=== PATIENT | female | born 1975 | race Caucasian/White ===

== ENCOUNTER → 2020-03-20 20:00 | Outpatient (CLI) | payer MEDICAID, SELFPAY | PROVIDERS: PCP Family Medicine; Visit Provider Nurse Practitioner Family | DX: G47.33 Obstructive sleep apnea (adult) (pediatric) (principal); R06.83 Snoring; I10 Essential (primary) hypertension; E66.01 Morbid (severe) obesity due to excess calories; Z68.41 Body mass index [BMI] 40.0-44.9, adult | CPT/HCPCS: 95810 ==

== ENCOUNTER → 2020-04-17 09:00 | Outpatient (CLI) | payer MEDICAID, SELFPAY | PROVIDERS: PCP Family Medicine; Visit Provider Nurse Practitioner Family | DX: R69 Illness, unspecified (principal) ==

== ENCOUNTER → 2020-08-25 09:03 | Outpatient (CLI) | payer MEDICAID, SELFPAY ==
--- NOTE | 2020-08-25 09:15 | RAD_ITS ---
PROCEDURE: Fluoroscopic guided Hip Injection DATE: 08/25/2020 INDICATION: Female, 44 years old. Chronic hip pain. PHYSICIAN: Tyrone Camacho M.D. MEDICATIONS: 40 mg of KENALOG and 4 cc of 1% LIDOCAINE. 2% lidocaine administered subcutaneously for local anesthesia. ACCESS SITE: Right hip. NEEDLE: 22-gauge spinal needle. FLUOROSCOPY TIME (if supplied): (1:58) minutes/seconds FINDINGS: The risks, benefits, and alternatives to the procedure were explained to the patient. The specific risks of bleeding, infection, and neurovascular injury were detailed and accepted. Witnessed informed consent was obtained. A 22-gauge spinal needle was positioned under radiograph fluoroscopic localization. Approximately 2 cc of [id number] instilled for localization purposes. Medication was then injected. The patient tolerated the procedure well without any immediate complications. RAD/Inj/Asp Jamie Jt Should/Hip/Knee IMPRESSION: 1. Successful fluoroscopic guided hip injection. Electronically Signed: Tyrone Camacho MD at 10:20 EST , Service support ,
== END ==
PROVIDERS: PCP Nurse Practitioner Family; Referring Provider Family Medicine; Visit Provider Family Medicine
DX: M70.61 Trochanteric bursitis, right hip (principal)
CPT/HCPCS: 20610; 77002

== ENCOUNTER → 2020-09-30 13:52 | Outpatient (CLI) | payer MEDICAID, SELFPAY ==
[2020-09-17 09:43] VITALS: BMI 75.5
--- NOTE | 2020-09-30 13:54 | STEWCON_ITS ---
Reason For Study: PRE-OP Stress Results Protocol: Dobutatmine Stress Echo Maximum Predicted HR: 177 bpm Target HR: 150 bpm % Maximum Predicted HR: 90 % DurationHeart Rate Stage (mm:ss) (bpm) BP Dose Comment BASELINE 94 156/89 DILUTED DEFINITY 6 ML USED DURING STRESS DSE- 10 MCG 3:15 129 154/8510.00NO SX DSE- 20 MCG 3:00 142 127/7220.00NO SX DSE- 30 MCG 4:28 160 102/5930.00ATROPINE 0.25 MG IVP GIVEN @ 1426, C/O SL DYSPNEA, KEITA RECOVERY 101 133/80 DENIES COMPLAINT Stress Duration: 10:43 mm:ss Maximum Stress HR: 160 bpm Baseline Echocardiogram Findings Stress Echo Wall motion Data Resting WM Intermediate WM Stress WM Interpretation Summary Dobutamine stress echocardiogram. Preoperative evaluation. Stress protocol: Resting EKG demonstrates sinus rhythm with a rate of 90 bpm normal intervals are noted resting blood pressure is 1 and 56/80 9 mmHg. Dobutamine was infused starting at 10 mcg/kg/min increasing in 3- minute periods to a peak of 30 mcg/kg/min. The patient required 25 mg of atropine to attain the maximum heart rate of 160 bpm which was 90% of max impacted heart rate. The maximum workload was 1 metabolic equivalent. Patient maintained sinus rhythm throughout the recording. At rest there were no ST or T wave changes noted to suggest ischemia and at peak exercise no ST or T wave changes were noted to suggest ischemia. No arrhythmias were noted the test was terminated due to the target heart rate being achieved. The resting blood pressure is 156/89 with a final blood pressure 133/80 mmHg. Resting echocardiogram was performed with Definity enhancement. The estimated ejection fraction was 55%. At low dose there was improvement in left ventricular systolic function and at peak there was near complete contractility with obliteration of the chamber with ejection fraction of 75%. No wall motion abnormalities were noted to suggest ischemia. During recovery normal wall motion was noted. Conclusion: Dobutamine stress echocardiogram with no evidence of ischemia. No arrhythmias noted. Normal resting echocardiogram. Ordering Physician: Gómez Watters Referring Physician: Gómez Watters MD Performed By: Tete Robert, ALIA, RVT
== END ==
PROVIDERS: PCP Nurse Practitioner Family; Visit Provider Internal Medicine Cardiovascular Disease
DX: Z01.818 Encounter for other preprocedural examination (principal)
CPT/HCPCS: 93017; 93350; J7040; Q9957; A4216; C8928

== ENCOUNTER 2021-07-23 10:57 | Outpatient (RCR) | payer MEDICAID, SELFPAY ==
--- NOTE | 2021-07-23 15:01 | HP.PTEVAL ---
Patient's Visit Information CARLEEN SETH is a 45 year old F referred to Physical Therapy by MIRIAN Spangler with a diagnosis of . Date of Evaluation: 07/23/21 Physical Therapist: Nina Moran DPT - Visit Plan Frequency: 1x/Week Duration: 1 Week Plan: Mobility Scooter Evaluation. Educated on importance of movement at home and getting her mobility back - Subjective Patient reports that she had a mobility when she lived in [place] and has moved back to [place]- she has had it for about 7 years and it needs replaced. She still has it but it does not work. It has been a couple of years since she has been ambulatory. She can walk from about 5 feet before she has to stop and sit down. She reports that her lips turn blue and she can't breathe. She has her own wheelchair and can use her rollerator with a seat on it for mobility. She is not able to maneuver her wheelchair throughout the house. When she has an MD apt she uses a wheelchair. She does not go out other than MD apts. does all of her shopping and anything needed done outside the home. does all the cooking and cleaning at home. Inside her home she uses the wheelchair to go from the family room to her bedroom. Once in her bedroom she can use the walker. Bathroom is upstairs- she only goes up there 1x a week for a shower. Other than that she uses a bedside commode and sponge bathes. Stairs in her home has a handrail on the right side and requires assistance from her . She has RA and psoraitic arthritis and ankylosis spondylosis, right hip pain and both knees. She has pain all the time and she sees MD for pain management. She has boys that are 11 and 8 years old. They also help. Her is not currently working and is there as needed. She sleeps in a regular bed but she has to have help getting in/out from her . She has short little steps with rails on both sides and is able to navigate. She does not have a handicapped accessible car and she has to have help to get in/out of the van from her . The scooter will fit in the van. She feels that it will help her get out of the house more. Patient is 5'1 Weight: 466lbs. Pain: 10/10 in her back, right hip and bilateral LE. Best: 4-5/10 Eases: sitting PMHx/Meds: see scanned in chart. Normal Day: gets up, goes to the bathroom in the bedside commode- walk from bed to wheelchair with rollator- then gets into the wheelchair- is unable to propel herself in the wheelchair- or children push her to the couch- she can transfer with the walker to the couch- helps her get dressed- then she stays on the couch all day- transfers independently to a rollator to a bedside commode throughout the day- transfers back into her wheelchair- someone pushes her back to her bedroom and she goes to bed. She has been in PT before in aquatic therapy but it has been years ago. She does not exercise due to pain. - Objective Posture: FH, RS- can correct but does not maintain. Wheelchair mobility: dependent. Gait: shuffling and step to gait pattern- 5 feet then required to sit down due to shortness of breathe. Transfers: indep with sit to stand with FWW from w/c. Required max A for LE movement for bed transfer and mobility. Standing: stands for 30 sec then requires sitting due to pain and shortness of breathe. ROM: WFL in all planes- obesity plays major role in joint mobility- soft tissue. Strength: Ankle: 4/5, Knee: 4-/5, Hip: 3+/5, Core: poor. Balance: sitting: static and dynamic: fair plus, standing: poor - Balance/Special Test Scores Lower Extremity Functional Score: 0 - Rehabilitation Potential Rehabilitation Potential: Fair - Anticipated Interventions Thank you for the opportunity to evaluate your patient. For Medicare and Medicare HMO plans, please review the plan of care and approve it. It will need to be FAXED BACK to us at [phone] for Medicare purposes. For Medicare only, by signing this I certify the plan of care. Please let me know if there are questions or concerns regarding this plan of care. Physician Signature: Date:
--- NOTE | 2021-08-10 11:37 | HP.PT.NRP ---
CARLEEN SETH was seen in my office for initial evaluation on 07/23/21. The following Plan of Care was established for this patient: Initial Frequency: 1x/Week Initial Duration: 1 Week This patient was last seen in our office . Pertinent comments regarding their Physical therapy will appear below: Wheelchair eval only- d/c At this point I will be discontinuing this patient from physical therapy. I would be happy to see this patient again in the future if found appropriate by the physician. Thank you! Nina Moran DPT Balance/Gait/Functional tests - Balance/Special Test Scores Lower Extremity Functional Score: 0
== END 2021-07-23 19:00 | disposition home or self-care (01) ==
LOC: PT 10:57
PROVIDERS: PCP Nurse Practitioner Family; Referring Provider Nurse Practitioner Family; Visit Provider Nurse Practitioner Family
DX: Z01.89 Encounter for other specified special examinations (principal); E66.01 Morbid (severe) obesity due to excess calories; G89.4 Chronic pain syndrome; R26.2 Difficulty in walking, not elsewhere classified
CPT/HCPCS: 97162

== ENCOUNTER 2021-08-11 20:15 | Outpatient (CLI) | payer MEDICAID, SELFPAY | END 2021-08-11 23:59 | disposition home or self-care (01) | PROVIDERS: PCP Nurse Practitioner Family; Visit Provider Nurse Practitioner Family | DX: G47.33 Obstructive sleep apnea (adult) (pediatric) (principal) | CPT/HCPCS: 95811 ==

== ENCOUNTER 2021-10-20 14:26 | Outpatient (CLI) | payer MEDICAID, SELFPAY | END 2021-10-20 23:59 | disposition home or self-care (01) | LOC: SL 14:26 | PROVIDERS: PCP Nurse Practitioner Family; Visit Provider Nurse Practitioner Family | DX: Z46.89 Encounter for fitting and adjustment of other specified devices (principal) ==

== ENCOUNTER 2023-02-05 19:36 | Emergency (ER) | payer MEDICAID, SELFPAY ==
[2023-02-05 19:37] VITALS: BP 158/81; PULSE 124; RESP 16; TEMP 36.7; O2SAT 97
--- NOTE | 2023-02-05 19:54 | ED.VIS.DENTA ---
HPI History of Present Illness Chief Complaint: Dental Informant: patient Onset/Context/Timing Onset: Yesterday Context: Gradual Onset Timing: Continuous Quality: Sharp Location: Left lower molar Worsened by: Nothing Relieved by: - (Nothing) Associated Symptoms Assocated Symptom - Dental: jaw swelling, face swelling, cold sensitivity and hot sensitivity; Negative for fever Narrative Narrative: Patient presents with left lower dental pain that has been getting worse over the last week. Patient states that has been intermittent over the last week but became constant last night. Patient describes the pain as sharp. Patient states the pain is over the left lower molars. Patient states she had a recent root canal. Patient states she has been taking her Woodbridge with minimal relief. Patient admits to hot and cold sensitivity. Patient also admits to some swelling of her jaw and face. Patient is mainly concerned about an infection. [facility] Medical History (Updated 02/05/23 @ 20:[address] Edi Osuna, DO) Ankylosing spondylitis Anxiety and depression Awareness under anesthesia Chronic pain syndrome Dysphagia Essential hypertension Gout Herpes Hiatal hernia History of pancreatitis Lumbago of lumbar region with sciatica Malignant neoplasm of left breast Morbid obesity with BMI of 70 and over, adult MAGALY on CPAP Osteoarthritis PCOS (polycystic ovarian syndrome) Psoriasis Psoriatic arthritis Rheumatoid arthritis Right hip pain Home Medications biotin 10,000 mcg capsule mcg PO 09/12/20 [History Last Taken Unknown] clobetasol 0.05 % lotion 1 applic topical DAILY PRN 09/12/20 [History Last Taken Unknown] diphenoxylate-atropine 2.5 mg-0.025 mg tablet (Lomotil) 1 tab PO Q6H PRN 09/12/20 [History Last Taken Unknown] duloxetine 30 mg capsule,delayed release 30 mg PO DAILY 09/12/20 [History Last Taken Unknown] hydrocodone 10 mg-acetaminophen 325 mg tablet See Rx Instructions PO BID PRN 09/12/20 [History Last Taken Unknown] loratadine 10 mg tablet 10 mg PO DAILY 09/12/20 [History Last Taken Unknown] nystatin 100,000 unit/gram topical cream 1 applic topical BID PRN 09/12/20 [History Last Taken Unknown] spironolactone 50 mg tablet 50 mg PO DAILY 09/12/20 [History Last Taken Unknown] acyclovir 200 mg capsule 200 mg PO Q4H PRN 09/17/20 [History Last Taken Unknown] glycopyrrolate 1 mg tablet 1 mg PO QHS PRN 09/17/20 [History Last Taken Unknown] lisinopril 20 mg-hydrochlorothiazide 25 mg tablet 1 tab PO DAILY 09/17/20 [History Last Taken Unknown] clindamycin HCl 300 mg capsule (Cleocin HCl) 300 mg PO Q6H #40 CAPSULES 02/05/23 [Rx Last Taken Unknown] Allergy/AdvReac Type Severity Reaction Status Date / Time amlodipine Allergy Unknown unknown Verified 02/05/23 19:43 ethinyl estradiol Allergy Unknown unknowm Verified 02/05/23 19:43 [From Alyacen (28)] norethindrone Allergy Unknown unknowm Verified 02/05/23 19:43 [From Alyacen ()] adhesive Allergy Rash Verified 02/05/23 19:43 Penicillins Allergy Hives Verified 02/05/23 19:43 Family History Mother Breast cancer Thyroid disorder Hypertension Cancer lymphoma Schizophrenia Father Anxiety Diabetes CVA (cerebral vascular accident) Sister Hypertension Abuse, drug or alcohol Grandfather Cancer lung Grandmother Diabetes Grandfather Colon cancer Surgical History H/O LEEP (2003) History of History of cholecystectomy History of esophagogastroduodenoscopy (EGD) (2013) History of lumpectomy of left breast (2016) History of tubal ligation Social History Smoking Status: Former smoker how long ago did patient quit smokin06/20/2020 second hand exposure: Yes alcohol intake: never substance use type: does not use ROS ROS ED Constitutional Constitutional ED: Reports chills and subjective; Denies fever(s) Eyes Eyes: Denies blurry vision or change in vision ENT ENT ED: Denies rhinorrhea or sore throat Cardiovascular Cardiovascular: Denies chest pain or palpitations Respiratory/Chest Respiratory/Chest: Denies cough or dyspnea Gastrointestinal Gastrointestinal: Reports nausea; Denies vomiting Genitourinary Genitourinary ED: Denies dysuria or hematuria Musculoskeletal Musculoskeletal: Denies back pain or neck pain Integumentary Denies abscess or rash Neurologic Neurologic: Reports headache(s); Denies weakness Allergic/Immunologic Allergic/Immunologic ED: Denies mouth swelling or urticaria EXAM Physical Exam Const Vital Signs: 02/05/23 19:37 Temperature 98.1 F Temperature Source Temporal Pulse Rate 124 H Respiratory Rate 16 Blood Pressure 158/81 H Blood Pressure Mean 106 Pulse Ox 97 Oxygen Delivery Method Room Air Positive well nourished, well developed and obese General Appearance ED: well developed and NAD Nutritional Appearance: obese HEENT HEENT Narrative: There is some gingival edema and tenderness over the left lower first molar. There is no fluctuance. There is no discharge or drainage. There is no evidence of dry socket noted. There is no sublingual edema or evidence of Sandor's angina. Mouth ED: Yes oral and palatal mucosa normal and Yes tongue normal Mouth: oral and palatal mucosa normal and tongue normal Teeth and Gingiva: gingiva abnormal Positive for gingival edema Throat: posterior oropharynx normal Eyes PERRL and EOMs intact bilaterally Neck supple and no JVD General: Negative for anterior neck swelling, tenderness or submandibular swelling Lymph Lymphatic: no lymphadenopathy noted Neuro oriented x3, CN's II-XII intact bilaterally, moves all extremities, no focal motor deficits and no sensory deficits noted Sensorium / Orientation: alert Motor Exam: strength 5/5 throughout MDM MDM MDM Narrative Medical decision making narrative: Patient was advised that this could be a dental infection. Patient was given a dose of clindamycin here. Patient was given a prescription for clindamycin. Patient was instructed to continue using ice to the area. Patient was instructed to continue her Woodbridge as prescribed. Patient was instructed to follow-up with her dentist in 3 to 5 days. Patient was instructed return if worse in any way. Patient understood and was agreeable with the plan. All questions were answered. Discharge Plan Triage Chief Complaint: Dental ED Midlevel Provider: Andrea Dempsey ED Provider: Edi Osuna Dx/Rx/DC Orders Clinical Impression: Infected dental caries, Morbid obesity with BMI of 70 and over, adult, Essential hypertension Instructions: ED Dental Pain Prescriptions: New clindamycin HCl [Cleocin HCl] 300 mg capsule 300 mg PO Q6H Qty: 40 0RF No Action lisinopril-hydrochlorothiazide 20-25 mg tablet 1 tab PO DAILY hydrocodone-acetaminophen 10-325 mg tablet See Rx Instructions PO BID PRN Rx Instructions: Take 1 to 1.5 tablets PO twice a day PRN; diphenoxylate-atropine [Lomotil] 2.5-0.025 mg tablet 1 tab PO Q6H PRN spironolactone 50 mg tablet 50 mg PO DAILY duloxetine 30 mg capsule,delayed release(DR/EC) 30 mg PO DAILY nystatin 100,000 unit/gram cream 1 applic TOPICAL BID PRN biotin 10,000 mcg capsule PO clobetasol 0.05 % lotion 1 applic TOPICAL DAILY PRN loratadine 10 mg tablet 10 mg PO DAILY acyclovir 200 mg capsule 200 mg PO Q4H PRN glycopyrrolate 1 mg tablet 1 mg PO QHS PRN Primary Care Provider: Surekha Alejandro NP Referrals: Surekha Alejandro NP, [employer] [Primary Care Provider] - Dentist,Your [STAFF PHYSICIAN] - 3-5 Days Disposition Disposition: Home, Self Care
[2023-02-05] MEDS: Clindamycin HCl 150 MG Capsule 300 MG PO (20:21)
[2023-02-05 20:41] VITALS: BMI 86.8
== END 2023-02-05 20:45 | disposition home or self-care (01) ==
LOC: ED 20:09
PROVIDERS: Emergency Provider Emergency Medicine; PCP Nurse Practitioner Family; Visit Provider Emergency Medicine
DX: K02.9 Dental caries, unspecified (principal); E66.01 Morbid (severe) obesity due to excess calories; Z68.45 Body mass index [BMI] 70 or greater, adult; Z87.891 Personal history of nicotine dependence; I10 Essential (primary) hypertension; Z79.899 Other long term (current) drug therapy; Z90.49 Acquired absence of other specified parts of digestive tract
CPT/HCPCS: 99283

== ENCOUNTER 2023-08-13 01:48 | Emergency (ER) | payer MEDICAID, SELFPAY ==
[2023-08-13 01:48] VITALS: BP 156/65; PULSE 94; RESP 22; TEMP 36.3; O2SAT 100; BMI 89.6
--- OUTSIDE RECORDS SUMMARY | 2023-08-13 02:03 | XMS RPT_ITS | CCD ---
Author Name Unknown Address [address] [place] [address] Organization [facility] Care Team Providers Care Well Driller Helper Name Role Phone Lobo NIGHT STOCKER.ALEXANDRU, Kodi Primary Care Provider Duong, [place] S Unavailable VERONICA GEORGE Attending Unavaila TY Richards Referring Unavailable LOBO, KODI Primary Care Unavailable Lobo NIGHT STOCKER.ALEXANDRU, Kodi Primary Care Provider Duong, Gómez S Unavailable Lobo NIGHT STOCKER.ALEXANDRU, Kodi Primary Care Provider Duong, Gómez S Unavailable Duong, [place] S Unavailable Duong GARLAND Gómez S Unavailable LOBO, KODI Referring Unavailable LOBO, KODI Primary Care Unavailable DARLYN WARREN Attending Unavailable LOBO, KODI Primary Care Unavailable TITO ALCANTAR Attending Unavailable LOBO, KODI Primary Care Unavailable LOBO, KODI Primary Care Unavailable LOBO, KODI Attending Unavailable LOBO, KODI Primary Care Unavailable LOBO, KODI Referring Unavailable LOBO, KODI Primary Care Unavailable LOBO, KODI Attending Unavailable LOBO, KODI Primary Care Unavailable TITO ALCANTAR Attending Unavailable Allergies Allergy Classification Reported Allergen(s) Allergy Type Date of Onset Reaction(s) Facility (20 sources) Adhesive Tape; Translations: [ADHESIVE TAPE (ROSALEJANDRA)] Allergy to substance 7 Rash [facility] (20 sources) amLODIPine; Translations: [AMLODIPINE] Drug Allergy 9 Other: See Comments, Intolerance [facility] (8 sources) Penicillins; Translations: [PENICILLINS] Drug Allergy 1 Hives, Anaphylaxis, Swelling [facility] (20 sources) Norethin-E.Estr adiol Triphasic; Translations: [NORETHIN-E.EST RADIOL TRIPHASIC] Drug Intolerance 0 Intolerance [facility] Work Phone: (20 sources) Penicillins Drug Allergy 1 Hives, Anaphylaxis, Swelling [facility] Medications Current Medications Medication Drug Class(es) Dates Sig (Normalized) Sig (Original) hydroCHLOROthiazide 25 mg / lisinopril 20 mg oral tablet (20 sources) Thiazide Diuretic, Angiotensin Converting Enzyme Inhibitor Start: 01-12-2023 End: 01-07-2024 take 1 tablet by mouth once daily lisinopril-hydroC HLOROthiazide (ZESTORETIC) 20-25 mg per tablet Indications: Essential hypertension Take 1 tablet by mouth once daily. 90 tablet 3 01/12/2023 01/07/2024 Active Completed/Discontinued Medications Medication Drug Class(es) Dates Sig (Normalized) Sig (Original) Acetaminophen (20 sources) acetaminophen (T YLENOL 8 HOUR ORAL) Take by mouth as needed. 0 Active other (healthy) Maternal Grandmother other (lung cancer) Maternal Grandfather Diabetes Paternal Grandmother Cervical Cancer Paternal Grandmother Colon Cancer Paternal Grandfather Anesthesia Problems No Family History Patient Allergies ALLERGIES Allergen Reactions Penicillins Hives, Anaphylaxis, Swelling Other reaction(s): Rash Alyacen [Norethin-E* Intolerance Intolerance-mood change Amlodipine Other: See Comments, Intolerance Severe migraine Tape [Adhesive Tape* Rash Current Medications Current Outpatient Medications on File Prior to Visit Medication Sig multivit with calcium,iron,min (MULTIPLE VITAMIN, WOMENS ORAL) Take by mouth. HYDROcodone-Acetaminophen (NORCO) 10-325 mg per tablet Take 1 tablet by mouth every 8 hours as needed for pain. Do not start before April 05, 2023. HYDROcodone-Acetaminophen (NORCO) 10-325 mg per tablet Take 1 tablet by mouth every 8 hours as needed for pain. Disposable Gloves (NITRILE EXAM GLOVES) misc Use every two hours as needed for personal hygiene care lisinopril-hydroCHLOROthiazide (ZESTORETIC) 20-25 mg per tablet Take 1 tablet by mouth once daily. spironolactone (ALDACTONE) 50 mg tablet Take 1 tablet by mouth once daily. dicyclomine (BENTYL) 10 mg capsule Take 1 capsule by mouth before meals and at bedtime. nystatin (MYCOSTATIN) cream Apply to affected area twice daily as needed. Cholecalciferol, Vitamin D3, 50 mcg (2,000 unit) cap Take 1 capsule by mouth once daily. levonorgestrel (MIRENA) 20 mcg/24 hours (8 yrs) 52 mg IUD 1 Each by INTRAUTERINE route as directed. pantoprazole DR (PROTONIX) 40 mg tablet Take 1 tablet by mouth twice daily. loratadine (CLARITIN) 10 mg tablet Take 1 tablet by mouth once daily. Clobetasol Propionate 0.05 % lotn Apply to affected area. nystatin-triamcinolone (MYCOLOG) ointment Apply sparingly to perineum twice daily for irritation/infection. MEDICATION, NON-DATABASE A therapist wheelchair mobility referral to document the patient's mobility and functional condition. diphenoxylate-atropine (LOMOTIL) 2.5-0.025 mg per tablet TAKE ONE TABLET BY MOUTH FOUR TIMES A DAY NEEDED acetaminophen (TYLENOL 8 HOUR ORAL) Take by mouth as needed. acyclovir (ZOVIRAX) 200 mg capsule Take 1 capsule by mouth every 4 hours while awake. No current facility-administered medications on file prior to visit. Social History Social History Tobacco Use Smoking status: Former Packs/day: 1.00 Years: 31.00 Additional pack years: 0.00 Total pack years: 31.00 Types: Cigarettes Quit date: 06/20/2020 Years since quittin.8 Smokeless tobacco: Never Tobacco comments: quit 06/19/20 Vapes occasionally Vaping Use Vaping Use: Former Substance Use Topics Alcohol use: Not Currently Comment: not for 15+ years Drug use: Never Review of Symptoms REVIEW OF SYSTEMS See HPI, otherwise negative EXAM: BP 136/92 (BP Site: Right Arm, BP Position: Sitting, BP Cuff Size: Large Adult) Pulse 118 Resp 18 Wt (!) 204.1 kg (450 lb) LMP 07/07/2022 SpO2 97% BMI 85.03 kg/m General Appearance: Well appearing, alert, in no acute distress, well-hydrated, well nourished., Morbidly obese, and Wheelchair. Lungs: Lungs clear to auscultation. No wheezing, rhonchi, rales.. Heart: RRR without murmur, gallop, or rubs. No ectopy. Psychiatric: pleasant, cooperative. Health Maintenance List Hepatitis B Vaccine(1 of 3 - 3-dose series) Never done Hepatitis C Screening Never done HIV Screening Never done Colorectal Cancer Screening Never done Influenza Vaccine(1) due on 03/11/2023 Covid-19 Vaccine( season) due on 03/11/2023 Mammogram Screening due on 05/17/2023 BP Controlled (<130/80) due on 08/30/2023 Annual PCP Team Chronic Disease Visit due on 05/02/2024 Lipid Screening due on 04/17/2025 Diabetes Screening due on 05/17/2025 Pap Testing due on 11/05/2026 HPV Testing due on 11/05/2026 DTaP,Tdap,Td Vaccine(2 - Td or Tdap) due on 04/04/2030 HPV Vaccine Aged Out Data reviewed Previous records, office notes, OARRS report PDMP website checked and validated. All prescriptions have been APPROPRIATELY filled. No suspicious activity was identified. 04/21/2023 by Kodi Diamond CNP. ASSESSMENT/PLAN: 1. Well adult exam - ICD9: V70.0, ICD10: Z00.00 (primary diagnosis) - Counseled on healthy diet and regular exercise - Calcium intake with supplements or by diet of 1000 mg/day for under 50, 9277-4505 mg/day for 50+ - Discussed need and benefit for weight loss. BMI 85.03 kg/(m^2) - CBC - HGB A1C - COMP METABOLIC PANEL - VITAMIN D 25 HYDROXY - TSH BLD 2. Chronic midline low back pain without sciatica - ICD9: 724.2, 338.29, ICD10: M54.50, G89.29 - HYDROCODONE 10 MG-ACETAMINOPHEN 325 MG TABLET - HYDROCODONE 10 MG-ACETAMINOPHEN 325 MG TABLET - HYDROCODONE 10 MG-ACETAMINOPHEN 325 MG TABLET 3. Chronic pain syndrome - ICD9: 338.4, ICD10: G89.4 - HYDROCODONE 10 MG-ACETAMINOPHEN 325 MG TABLET - HYDROCODONE 10 MG-ACETAMINOPHEN 325 MG TABLET - HYDROCODONE 10 MG-ACETAMINOPHEN 325 MG TABLET 4. Trochanteric bursitis of right hip - ICD9: 726.5, ICD10: M70.61 - HYDROCODONE 10 MG-ACETAMINOPHEN 325 MG TABLET - HYDROCODONE 10 MG-ACETAMINOPHEN 325 MG TABLET - HYDROCODONE 10 MG-ACETAMINOPHEN 325 MG TABLET 5. MAGALY (obstructive sleep apnea) - ICD9: 327.23, ICD10: G47.33 Has not been using CPAP r/t side effects, but feel this is necessary for patient. Consult to sleep medicine for possible other treatments, is interested in implantable device as well. - CONSULT TO SLEEP MEDICINE - ADULT 6. Prediabetes - ICD9: 790.29, ICD10: R73.03 Interested in injectable GLP-1. Patient/ researching insurance payment as well as coupon availability and will notify office. Consider: Deidre Rain Mounjaro. - HGB A1C - COMP METABOLIC PANEL 7. PCOS (polycystic ovarian syndrome) - ICD9: 256.4, ICD10: E28.2 Interested in injectable GLP-1. Patient/ researching insurance payment as well as coupon availability and will notify office. Consider: Deidre Rain Mounjaro. - CBC - HGB A1C - COMP METABOLIC PANEL 8. Vitamin D deficiency - ICD9: 268.9, ICD10: E55.9 - VITAMIN D 25 HYDROXY 9. Screening for thyroid disorder - ICD9: V77.0, ICD10: Z13.29 - TSH BLD 10. Encounter for immunization - ICD9: V03.89, ICD10: Z23 - PFIZER-BIONTECH COVID-19 VACCINE (2022- [place]) AGE 12+ YR - INFLUENZA VACCINE, AGE 6 MO - 64 YR, QUADRIVALENT (AFLURIA, FLULAVAL, FLUZONE) Kodi Diamond APRN.MILLWORK ESTIMATOR documented in this encounter [facility] 03-07-2023 Miscellaneous Notes Spoke with pt and information listed below given. Pt verbalizes understanding. Apt booked for May 02. Kalyn Wang LPN I can send in 2 months' worth. She will need to have an appointment prior to her refill in late April. The following approved medication requests have been transmitted electronically. Requested Prescriptions Signed Prescriptions Disp Refills HYDROcodone-Acetaminophen (NORCO) 10-325 mg per tablet 90 tablet 0 Sig: Take 1 tablet by mouth every 8 hours as needed for pain. Do not start before April 05, 2023. Authorizing Provider: KODI DIAMOND HYDROcodone-Acetaminophen (NORCO) 10-325 mg per tablet 90 tablet 0 Sig: Take 1 tablet by mouth every 8 hours as needed for pain. Authorizing Provider: KODI DIAMOND APRN.ALEXANDRU PDMP website checked and validated. All prescriptions have been APPROPRIATELY filled. No suspicious activity was identified. 03/07/2023 by Kodi Diamond CNP. Patient requesting 90 day script if provider agreeable. Patient has been identified by name and date of : Yes Patient phones for refill(s): Requested Prescriptions Pending Prescriptions Disp Refills HYDROcodone-Acetaminophen (NORCO) 10-325 mg per tablet 90 tablet 0 Sig: Take 1 tablet by mouth every 8 hours as needed for pain. Date of last office visit in primary care: CONSTANTINO (VV) 12/17/22 NOV not scheduled Last 2 Encounter Wt Readings: Date: Wt: 02/22/2022 193.7 kg (427 lb) 11/05/2021 194 kg (427 lb 12.8 oz) Please advise. Thank you. ANDREWS Royal documented in this encounter [facility] 02-07-2023 Miscellaneous Notes The following approved medication requests have been transmitted electronically. Requested Prescriptions Signed Prescriptions Disp Refills HYDROcodone-Acetaminophen (NORCO) 10-325 mg per tablet 90 tablet 0 Sig: Take 1 tablet by mouth every 8 hours as needed for pain. Authorizing Provider: KODI DIAMOND APRN.CNP PDMP website checked and validated. All prescriptions have been APPROPRIATELY filled. No suspicious activity was identified. 02/07/2023 by Kodi Diamond CNP. Last office visit: 12/17/22 F/u scheduled: none Last refilled on: [place] #90 on 01/12/23 Aida Kimbrough Ma documented in this encounter [facility] 01-17-2023 Miscellaneous Notes Resent prescription for gloves. Kira Soto APRN.CNP [facility] states they need the ICD 10 code put on the nitrite glove Rx and resent to them, per insurance request. documented in this encounter [facility] 01-12-2023 Miscellaneous Notes The following approved medication requests have been transmitted electronically. Requested Prescriptions Signed Prescriptions Disp Refills HYDROcodone-Acetaminophen (NORCO) 10-325 mg per tablet 90 tablet 0 Sig: Take 1 tablet by mouth every 8 hours as needed for pain. Authorizing Provider: KODI DIAMOND APRN.CNP PDMP website checked and validated. All prescriptions have been APPROPRIATELY filled. No suspicious activity was identified. 01/12/2023 by Kodi Diamond CNP. Constantino--12/17/22 nov-- nothing scheduled last refill--12/17/22 90 with 0 Last labs--07/07/22 documented in this encounter [facility] 01-12-2023 Miscellaneous Notes Constantino--12/17/22 Nov--nothing scheduled Last refill--lisinopril/hctz-- 2 90 with 3 Spironolactone--07/08/22 90 with 3 Last labs--07/07/22 documented in this encounter [facility] 01-12-2023 Miscellaneous Notes Constantino--12/17/22 Nov--nothing scheduled Last refill--nystatin--11/04/21 30g with 0 Dicyclomine--03/18/22 84 with 1 refill Last labs--07/07/22 documented in this encounter [facility] 12-17-2022 Note HNO ID: [id number] Author: Tito Alcantar APRN.MILLWORK ESTIMATOR Service: ? Author Type: Nurse Practitioner Type: Progress Notes Filed: 12/17/2022 11:18 AM Note Text: VIRTUAL VISIT PROGRESS NOTE This is a virtual visit using TechniScan video visit. It required patient-provider interaction for the medical decision making as documented below. I have communicated my name and active licensure. The patient's identity and physical location were verified at the time of this visit. Either the patient or their legal sales representative leather goods has been informed of the risks and benefits of -- and alternatives to -- treatment through a remote evaluation and consents to proceed with the evaluation remotely. Lizzy Seth is a 47 year old female seen for medication follow up. Patient is on [place] for chronic pain. Patient recently completed toxicology screen which was appropriately positive for opioids. Patient also reports bilateral knee pain. Patient has a history of Moore's cyst. Patient reports that she has been using a stationary bike at home but this has been painful due to grinding sensation. HISTORY REVIEWED (electronic chart updated): PAST MEDICAL HISTORY Diagnosis Date Abnormal EKG Anxiety has not worked: Christian Hayward Awareness under anesthesia Calculus of gallbladder without cholecystitis without obstruction Chronic back pain Chronic pain disorder Chronic pain syndrome 07/14/2020 Substance agreement signed 08/2019. Discitis Dorsalgia Edema Gout Herpes Hoarseness HTN (hypertension) Hypersomnia Leukocytosis Lumbago of lumbar region with sciatica Major depression, single episode Malignant neoplasm of left breast (HCC) 2016 patient denies h/o breast cancer 2021. states she does not follow with oncologist and has a family history of breast cancer. reports benign lumpectomy Morbid obesity (HCC) MAGALY (obstructive sleep apnea) CPAP compliant Osteoarthritis Pancreatitis PCOS (polycystic ovarian syndrome) PONV (postoperative nausea and vomiting) Psoriasis RA (rheumatoid arthritis) (HCC) Right hip pain PAST SURGICAL HISTORY Procedure Laterality Date BREAST LUMPECTOMY HX Left 2012 2016 SECTION HX x 2 EGD 07/2020 EGD W/O BRSH SPEC VARICIES INJ 03/03/2022 Esophagitis OFFICE LEEP 2003 PAST SURGICAL HISTORY OF 2013 EGD-dysphagia REMOVAL GALLBLADDER 05/2020 TUBAL LIGATION 2013 FAMILY HISTORY Problem Relation Age of Onset Breast Cancer Mother Schizophrenia Mother Thyroid Mother other (lymphoma) Mother other (htn) Mother Anxiety disorder Father Diabetes Father Stroke Father other (Other) Father vein defect-left leg amputated as a result Alcohol/Drug Sister other (htn) Sister Alcohol/Drug Sister other (Other) Brother 1/2 brother, has not seen since she was 7 other (healthy) Maternal Grandmother other (lung cancer) Maternal Grandfather Diabetes Paternal Grandmother Cervical Cancer Paternal Grandmother Colon Cancer Paternal Grandfather Anesthesia Problems No Family History Social History Tobacco Use Smoking status: Former Packs/day: 1.00 Years: 31.00 Pack years: 31.00 Types: Cigarettes Quit date: 06/20/2020 Years since quittin.4 Smokeless tobacco: Never Tobacco comments: quit 06/19/20 Vapes occasionally Vaping Use Vaping Use: Former Substance Use Topics Alcohol use: Not Currently Comment: not for 15+ years Drug use: Never Current Outpatient Medications Medication Sig HYDROcodone-Acetaminophen (NORCO) 10-325 mg per tablet Take 1 tablet by mouth every 8 hours as needed for pain. Do not start before November 15, 2022. HYDROcodone-Acetaminophen (NORCO) 10-325 mg per tablet Take 1 tablet by mouth every 8 hours as needed for pain. Do not start before October 17, 2022. HYDROcodone-Acetaminophen (NORCO) 10-325 mg per tablet Take 1 tablet by mouth every 8 hours as needed for pain. Do not start before September 17, 2022. Cholecalciferol, Vitamin D3, 50 mcg (2,000 unit) cap Take 1 capsule by mouth once daily. spironolactone (ALDACTONE) 50 mg tablet Take 1 tablet by mouth once daily. levonorgestrel (MIRENA) 20 mcg/24 hours (8 yrs) 52 mg IUD 1 Each by INTRAUTERINE route as directed. pantoprazole DR (PROTONIX) 40 mg tablet Take 1 tablet by mouth twice daily. nystatin (MYCOSTATIN) cream Apply to affected area twice daily as needed. loratadine (CLARITIN) 10 mg tablet Take 1 tablet by mouth once daily. dicyclomine (BENTYL) 10 mg capsule Take 1 capsule by mouth before meals and at bedtime. Clobetasol Propionate 0.05 % lotn Apply to affected area. HYDROcodone-Acetaminophen (NORCO) 10-325 mg per tablet Take 1.5 tablets by mouth twice daily as needed. Do not start before January 29, 2022. lisinopril-hydroCHLOROthiazide (ZESTORETIC) 20-25 mg per tablet Take 1 tablet by mouth once daily. nystatin-triamcinolone (MYCOLOG) ointment Apply sparingly to perineum twice daily for irritation/infection. (more content not included)... [facility] 12-08-2022 Miscellaneous Notes Called pts identified machine left detailed message as to needing a virtual appointment and come in to lab for a tox screen. Due to morbid obesity, is difficult for patient to attend appointments. However, she needs to have a urine tox screen completed and virtual visit prior to refills. Kodi Diamond APRN.[place] [employer] website checked and validated. All prescriptions have been APPROPRIATELY filled. No suspicious activity was identified. 12/08/2022 by Kodi Diamond CNP. Last OV: 05/17/22 Next OV: None, no upcoming appt scheduled Last Rx: 11/15/22 #90 w/0 Last Tox: 07/16/20 Aure Lovell Ma documented in this encounter [facility] 12-08-2022 Miscellaneous Notes Completing in refill encounter. Aure Lovell Ma documented in this encounter [facility] 09-10-2022 Miscellaneous Notes Patient has been identified by name and date of : Yes, Provider Kodi Diamond CNP Date 09/10/22 Time 8:02 am Patient phones for refill(s): Requested Prescriptions Pending Prescriptions Disp Refills HYDROcodone-Acetaminophen (NORCO) 10-325 mg per tablet 90 tablet 0 Sig: Take 1 tablet by mouth every 8 hours as needed for pain. HYDROcodone-Acetaminophen (NORCO) 10-325 mg per tablet 90 tablet 0 Sig: Take 1 tablet by mouth every 8 hours as needed for pain. HYDROcodone-Acetaminophen (NORCO) 10-325 mg per tablet 90 tablet 0 Sig: Take 1 tablet by mouth every 8 hours as needed for pain. Date of last office visit in primary care: 08/20/22 next apt 10/05/22 Last 2 Encounter Wt Readings: Date: Wt: 02/22/2022 193.7 kg (427 lb) 11/05/2021 194 kg (427 lb 12.8 oz) Previous labs/tests for medication: Not applicable Thank you. Kalyn Wang LPN documented in this encounter [facility] 08-30-2022 Note HNO ID: [id number] Author: Darlyn Warren MD Service: ? Author Type: Physician Type: Progress Notes Filed: 08/30/2022 4:08 PM Note Text: Lizzy Seth presents today for IUD check. She had a Mirena placed on 07/07/2022. She has had no complications since placement. REVIEW OF SYSTEMS: Initially was having daily bleeding with the IUD. Bleeding stopped today after a few days of spotting. No pain and she offers no complaints today. Satisfied with the IUD at this time. PHYSICAL EXAMINATION: BP 116/78 LMP 07/07/2022 ABDOMEN:soft and non-tender EXTERNAL GENITALIA: Normal genitalia and Bartholins, Urethra, Sken'e normal CERVIX: smooth, no lesions. IUD strings visible. IMPRESSION/PLAN: IUD correctly positioned. Patient counseled regarding monthly string check. Follow up for annual exam or sooner if needed. Darlyn Warren DO Medical Decision Making: Risk: Moderate: Drug management Medical Decision Making Level: 2 - Straightforward [facility] 08-30-2022 History of Presen t illness Narrative Lizzy Seth presents today for IUD check. She had a Mirena placed on 07/07/2022. She has had no complications since placement. REVIEW OF SYSTEMS: Initially was having daily bleeding with the IUD. Bleeding stopped today after a few days of spotting. No pain and she offers no complaints today. Satisfied with the IUD at this time. PHYSICAL EXAMINATION: BP 116/78 LMP 07/07/2022 ABDOMEN:soft and non-tender EXTERNAL GENITALIA: Normal genitalia and Bartholins, Urethra, Sken'e normal CERVIX: smooth, no lesions. IUD strings visible. IMPRESSION/PLAN: IUD correctly positioned. Patient counseled regarding monthly string check. Follow up for annual exam or sooner if needed. Darlyn Warren DO Medical Decision Making: Risk: Moderate: Drug management Medical Decision Making Level: 2 - Straightforward documented in this encounter [facility] 08-16-2022 Miscellaneous Notes The following approved medication requests have been transmitted electronically. Requested Prescriptions Signed Prescriptions Disp Refills HYDROcodone-Acetaminophen (NORCO) 10-325 mg per tablet 90 tablet 0 Sig: Take 1 tablet by mouth every 8 hours as needed for pain. Authorizing Provider: KODI DIAMOND APRN.MILLWORK ESTIMATOR PDMP website checked and validated. All prescriptions have been APPROPRIATELY filled. No suspicious activity was identified. 08/16/2022 by Kodi Diamond CNP. Patient phones requesting refills as follows: Patient comment: I will be due for my 3 month refill in week Requested Prescriptions Pending Prescriptions Disp Refills HYDROcodone-Acetaminophen (NORCO) 10-325 mg per tablet 90 tablet 0 Sig: Take 1 tablet by mouth every 8 hours as needed for pain. CONSTANTINO-05/17/22 Labs-07/07/22 NOV-none med filled 07/24/22 Please review and advise. Alka Serrano LPN documented in this encounter [facility] 08-13-2022 Miscellaneous Notes Patient phones requesting refills as follows: Requested Prescriptions Pending Prescriptions Disp Refills Cholecalciferol, Vitamin D3, 50 mcg (2,000 unit) cap 90 capsule 3 Sig: Take 1 capsule by mouth once daily. CONSTANTINO 11/04/21 NOV no upcoming appt Please review and advise. Lanny Hopper LPN documented in this encounter [facility] 08-06-2022 Note HNO ID: [id number] Author: Tito Alcantar APRN.ALEXANDRU Service: ? Author Type: Nurse Practitioner Type: Progress Notes Filed: 08/06/2022 11:03 AM Note Text: VIRTUAL VISIT PROGRESS NOTE This is a virtual visit using TechniScan video visit. It required patient-provider interaction for the medical decision making as documented below. Lizzy Seth is a 46 year old female seen for positive covid test at home. Patient reports symptoms started on 08/02/2022 and had a positive test on 08/04/2022. Patient reports symptoms including loss of taste and smell, chest tightness, nasal congestion, scratchy throat, head pressure. Patient reports that her symptoms have already improved other than the loss of taste and smell and her headaches however her headaches are less severe. HISTORY REVIEWED (electronic chart updated): PAST MEDICAL HISTORY Diagnosis Date Abnormal EKG Anxiety has not worked: Cymbalta, Effexor Awareness under anesthesia Calculus of gallbladder without cholecystitis without obstruction Chronic back pain Chronic pain disorder Chronic pain syndrome 07/14/2020 Substance agreement signed 08/2019. Discitis Dorsalgia Edema Gout Herpes Hoarseness HTN (hypertension) Hypersomnia Leukocytosis Lumbago of lumbar region with sciatica Major depression, single episode Malignant neoplasm of left breast (HCC) 2016 patient denies h/o breast cancer 2021. states she does not follow with oncologist and has a family history of breast cancer. reports benign lumpectomy Morbid obesity (HCC) MAGALY (obstructive sleep apnea) CPAP compliant Osteoarthritis Pancreatitis PCOS (polycystic ovarian syndrome) PONV (postoperative nausea and vomiting) Psoriasis RA (rheumatoid arthritis) (HCC) Right hip pain PAST SURGICAL HISTORY Procedure Laterality Date BREAST LUMPECTOMY HX Left 2012 2016 SECTION HX x 2 EGD 07/2020 EGD W/O BRSH SPEC VARICIES INJ 03/03/2022 Esophagitis OFFICE LEEP 2003 PAST SURGICAL HISTORY OF 2013 EGD-dysphagia REMOVAL GALLBLADDER 05/2020 TUBAL LIGATION 2013 FAMILY HISTORY Problem Relation Age of Onset Breast Cancer Mother Schizophrenia Mother Thyroid Mother other (lymphoma) Mother other (htn) Mother Anxiety disorder Father Diabetes Father Stroke Father other (Other) Father vein defect-left leg amputated as a result Alcohol/Drug Sister other (htn) Sister Alcohol/Drug Sister other (Other) Brother 1/2 brother, has not seen since she was 7 other (healthy) Maternal Grandmother other (lung cancer) Maternal Grandfather Diabetes Paternal Grandmother Cervical Cancer Paternal Grandmother Colon Cancer Paternal Grandfather Anesthesia Problems No Family History Social History Tobacco Use Smoking status: Former Packs/day: 1.00 Years: 31.00 Pack years: 31.00 Types: Cigarettes Quit date: 06/20/2020 Years since quittin.1 Smokeless tobacco: Never Tobacco comments: quit 06/19/20 Vapes occasionally Vaping Use Vaping Use: Former Substance Use Topics Alcohol use: Not Currently Comment: not for 15+ years Drug use: Never Current Outpatient Medications Medication Sig spironolactone (ALDACTONE) 50 mg tablet Take 1 tablet by mouth once daily. levonorgestrel (MIRENA) 20 mcg/24 hours (8 yrs) 52 mg IUD 1 Each by INTRAUTERINE route as directed. pantoprazole DR (PROTONIX) 40 mg tablet Take 1 tablet by mouth twice daily. nystatin (MYCOSTATIN) cream Apply to affected area twice daily as needed. loratadine (CLARITIN) 10 mg tablet Take 1 tablet by mouth once daily. Cholecalciferol, Vitamin D3, 50 mcg (2,000 unit) cap Take 1 capsule by mouth once daily. HYDROcodone-Acetaminophen (NORCO) 10-325 mg per tablet Take 1 tablet by mouth every 8 hours as needed for pain. Do not start before July 24, 2022. HYDROcodone-Acetaminophen (NORCO) 10-325 mg per tablet Take 1 tablet by mouth every 8 hours as needed for pain. Do not start before June 24, 2022. HYDROcodone-Acetaminophen (NORCO) 10-325 mg per tablet Take 1 tablet by mouth every 8 hours as needed for pain. Do not start before May 26, 2022. dicyclomine (BENTYL) 10 mg capsule Take 1 capsule by mouth before meals and at bedtime. Clobetasol Propionate 0.05 % lotn Apply to affected area. HYDROcodone-Acetaminophen (NORCO) 10-325 mg per tablet Take 1.5 tablets by mouth twice daily as needed. Do not start before January 29, 2022. lisinopril-hydroCHLOROthiazide (ZESTORETIC) 20-25 mg per tablet Take 1 tablet by mouth once daily. nystatin-triamcinolone (MYCOLOG) ointment Apply sparingly to perineum twice daily for irritation/infection. MEDICATION, NON-DATABASE A therapist wheelchair mobility referral to document the patient's mobility and functional condition. diphenoxylate-atropine (LOMOTIL) 2.5-0.025 mg per tablet TAKE ONE TABLET BY MOUTH FOUR TIMES A DAY NEEDED acetaminophen (TYLENOL 8 HOUR ORAL) Take by mouth as nee (more content not included)... [facility] 08-06-2022 History of Presen t illness Narrative VIRTUAL VISIT PROGRESS NOTE This is a virtual visit using TechniScan video visit. It required patient-provider interaction for the medical decision making as documented below. Lizzy Seth is a 46 year old female seen for positive covid test at home. Patient reports symptoms started on 08/02/2022 and had a positive test on 08/04/2022. Patient reports symptoms including loss of taste and smell, chest tightness, nasal congestion, scratchy throat, head pressure. Patient reports that her symptoms have already improved other than the loss of taste and smell and her headaches however her headaches are less severe. HISTORY REVIEWED (electronic chart updated): PAST MEDICAL HISTORY Diagnosis Date Abnormal EKG Anxiety has not worked: Cymbalta, Effexor Awareness under anesthesia Calculus of gallbladder without cholecystitis without obstruction Chronic back pain Chronic pain disorder Chronic pain syndrome 07/14/2020 Substance agreement signed 08/2019. Discitis Dorsalgia Edema Gout Herpes Hoarseness HTN (hypertension) Hypersomnia Leukocytosis Lumbago of lumbar region with sciatica Major depression, single episode Malignant neoplasm of left breast (HCC) 2016 patient denies h/o breast cancer 2021. states she does not follow with oncologist and has a family history of breast cancer. reports benign lumpectomy Morbid obesity (HCC) MAGALY (obstructive sleep apnea) CPAP compliant Osteoarthritis Pancreatitis PCOS (polycystic ovarian syndrome) PONV (postoperative nausea and vomiting) Psoriasis RA (rheumatoid arthritis) (HCC) Right hip pain PAST SURGICAL HISTORY Procedure Laterality Date BREAST LUMPECTOMY HX Left 2012 2016 SECTION HX x 2 EGD 07/2020 EGD W/O BRSH SPEC VARICIES INJ 03/03/2022 Esophagitis OFFICE LEEP 2003 PAST SURGICAL HISTORY OF 2013 EGD-dysphagia REMOVAL GALLBLADDER 05/2020 TUBAL LIGATION 2013 FAMILY HISTORY Problem Relation Age of Onset Breast Cancer Mother Schizophrenia Mother Thyroid Mother other (lymphoma) Mother other (htn) Mother Anxiety disorder Father Diabetes Father Stroke Father other (Other) Father vein defect-left leg amputated as a result Alcohol/Drug Sister other (htn) Sister Alcohol/Drug Sister other (Other) Brother 1/2 brother, has not seen since she was 7 other (healthy) Maternal Grandmother other (lung cancer) Maternal Grandfather Diabetes Paternal Grandmother Cervical Cancer Paternal Grandmother Colon Cancer Paternal Grandfather Anesthesia Problems No Family History Social History Tobacco Use Smoking status: Former Packs/day: 1.00 Years: 31.00 Pack years: 31.00 Types: Cigarettes Quit date: 06/20/2020 Years since quittin.1 Smokeless tobacco: Never Tobacco comments: quit 06/19/20 Vapes occasionally Vaping Use Vaping Use: Former Substance Use Topics Alcohol use: Not Currently Comment: not for 15+ years Drug use: Never Current Outpatient Medications Medication Sig spironolactone (ALDACTONE) 50 mg tablet Take 1 tablet by mouth once daily. levonorgestrel (MIRENA) 20 mcg/24 hours (8 yrs) 52 mg IUD 1 Each by INTRAUTERINE route as directed. pantoprazole DR (PROTONIX) 40 mg tablet Take 1 tablet by mouth twice daily. nystatin (MYCOSTATIN) cream Apply to affected area twice daily as needed. loratadine (CLARITIN) 10 mg tablet Take 1 tablet by mouth once daily. Cholecalciferol, Vitamin D3, 50 mcg (2,000 unit) cap Take 1 capsule by mouth once daily. HYDROcodone-Acetaminophen (NORCO) 10-325 mg per tablet Take 1 tablet by mouth every 8 hours as needed for pain. Do not start before July 24, 2022. HYDROcodone-Acetaminophen (NORCO) 10-325 mg per tablet Take 1 tablet by mouth every 8 hours as needed for pain. Do not start before June 24, 2022. HYDROcodone-Acetaminophen (NORCO) 10-325 mg per tablet Take 1 tablet by mouth every 8 hours as needed for pain. Do not start before May 26, 2022. dicyclomine (BENTYL) 10 mg capsule Take 1 capsule by mouth before meals and at bedtime. Clobetasol Propionate 0.05 % lotn Apply to affected area. HYDROcodone-Acetaminophen (NORCO) 10-325 mg per tablet Take 1.5 tablets by mouth twice daily as needed. Do not start before January 29, 2022. lisinopril-hydroCHLOROthiazide (ZESTORETIC) 20-25 mg per tablet Take 1 tablet by mouth once daily. nystatin-triamcinolone (MYCOLOG) ointment Apply sparingly to perineum twice daily for irritation/infection. MEDICATION, NON-DATABASE A therapist wheelchair mobility referral to document the patient's mobility and functional condition. diphenoxylate-atropine (LOMOTIL) 2.5-0.025 mg per tablet TAKE ONE TABLET BY MOUTH FOUR TIMES A DAY NEEDED acetaminophen (TYLENOL 8 HOUR ORAL) Take by mouth as needed. acyclovir (ZOVIRAX) 200 mg capsule Take 1 capsule by mouth every 4 hours while awake. No current facility-administered medications for this visit. ALLERGIES Allergen Reactions Penicillins Hives, Anaphylaxis, Swelling Other reaction(s): Rash Alyacen [Norethin-E* Intolerance Intolerance-mood change Amlodipine Other: See Comments, Intolerance Severe migraine Tape [Adhesive Tape* Rash REVIEW OF SYSTEMS: SEE HPI PHYSICAL EXAMINATION: VIDEO EXAM: (if completed, performed via video enabled technology) GENERAL: alert and appropriate, in no distress, well-hydrated, well nourished, and happy, smiling, interactive NOSE: external nose normal without rhinorrhea RESPIRATORY: breathing non-labored ASSESSMENT/PLAN: 1. COVID-19 - ICD9: 079.89, ICD10: U07.1 -Continue tylenol and ibuprofen for headache -Discussed with patient some symptoms may linger longer including loss of taste and smell, headache. Tito Alcantar APRN.ALEXANDRU I spent a total of 15 minutes on the date of the service which included preparing to see the patient, [id number] patient care, completing clinical documentation, obtaining and/or reviewing separately obtained history, performing a medically appropriate examination, counseling and educating the patient/family/caregiver, communicating results to the patient/family/caregiver, and care coordination (not separately reported) documented in this encounter [facility] 08-06-2022 Instructions Tito Alcantar APRN.CNP - 08/06/2022 10:41 AM EST Continue tylenol and ibuprofen Stay well hydrated and get plenty of rest. documented in this encounter [facility] 07-20-2022 Miscellaneous Notes I called patient back . She is comfortable with advice give. Bleeding precautions again discussed Reviewed, normal at this time. May follow up with SW if further concerns. Thank you, Priscila Wharton APRN.CNM Patient had Mirena IUD inserted on 07/07/22 with SW for menorrhagia. Patient states she has been bleeding two weeks straight. Bleeding is light in the beginning of the day and she only needs a liner. Becomes heavier later. It's not as heavy as her cycle was prior to insertion. Not saturating pads. Having intermittent cramping. Feeling more fatigued. Denies SOB, CP, or dizziness. Bleeding precautions reviewed. Advised it's normal to have irregular bleeding as her body is adjusting to hormones in IUD. Bleeding precautions reviewed. Message forwarded to provider wafer production worker and SW to review . Lizzy Begum RN documented in this encounter [facility] 07-08-2022 History of Presen t illness Narrative Patient is requesting that her spironolactone rx be changed to 90 days with refills. The following approved medication requests have been transmitted electronically. Requested Prescriptions Signed Prescriptions Disp Refills spironolactone (ALDACTONE) 50 mg tablet 90 tablet 3 Sig: Take 1 tablet by mouth once daily. Kodi Diamond APRN.CNP documented in this encounter [facility] 07-08-2022 Miscellaneous Notes Pt returned call and was given below information and voiced understanding and stated that her bleeding has completely subsided and she is feeling well. Monik Merritt LPN Left message for patient to call office. She Cheng RN ----- Message from Darlyn Warren MD sent at 07/08/2022 9:53 AM EST ----- Please call pt and notify her her labs are in pre menopausal range. Discussed CBC results with her yesterday at her appointment. Please also check on her bleeding documented in this encounter [facility] 07-07-2022 History of Presen t illness Narrative Lizzy presents today for IUD insertion for dysmenorrhea and menorrhagia. Patient's last menstrual period was 07/07/2022. GC/chlamydia: Not done: no risk factors and/or patient declines screening test: n/a. Had sterilization Side effects including irregular bleeding were discussed with the patient. The patient understands that it should be removed in 8 years or sooner if the patient desires a . IUD source: patient provided IUD lot #: [id number] Exp date: 06/2024 UNIVERSAL PROTOCOL / SAFETY CHECKLIST Procedure to be Performed: Mirena IUD Insertion Sign In: A Moment of CARE was completed. Personnel directly involved with the procedure wore the appropriate PPE (Personal Protective Equipment). Patient/Surrogate Stated/Verified: PATIENT VERIFIED(optional for EMERGENT procedures): Patient name, Date of , Relevant allergies, and The intended procedure Time Out Communication: Intended patient and procedure match the source documents. Consent documented and matches the intended procedure. Sign Out: SIGN OUT (optional for EMERGENT procedures): All specimen containers correctly labeled. All instruments, equipment, possible retained foreign bodies accounted for. Post-procedure follow-up management communicated and Plan of Care Visit completed when applicable. The cervix was prepped with betadine. The uterus sounded to 9 cm and the uterus is Anteverted.. Using sterile technique, the Mirena IUD was inserted after the cervix was dilated and the string was cut to 3 cm from the external os of the cervix. Patient tolerated procedure well. PLAN: Patient was advised to observe for signs and symptoms of infection including but not limited to fever, malodorous vaginal discharge and/or pain. The patient was told to check the string monthly for accurate placement. Bleeding expectations were reviewed. Follow up in one month. DO Lizzy Butler is a 46 year old Female who presents today for an endometrial biopsy for heavy menses. After placing Cytotec began having heavy vaginal bleeding and cramping. Had super plus tampon in place over last 2 hours and it was 1/3 way saturated. test: n/a UNIVERSAL PROTOCOL / SAFETY CHECKLIST Procedure to be Performed: Endometrial Biopsy Sign In: A Moment of CARE was completed. Personnel directly involved with the procedure wore the appropriate PPE (Personal Protective Equipment). Patient/Surrogate Stated/Verified: PATIENT VERIFIED(optional for EMERGENT procedures): Patient name, Date of , Relevant allergies, and The intended procedure Time Out Communication: Intended patient and procedure match the source documents. Consent documented and matches the intended procedure. Sign Out: SIGN OUT (optional for EMERGENT procedures): All specimen containers correctly labeled. All instruments, equipment, possible retained foreign bodies accounted for. Post-procedure follow-up management communicated and Plan of Care Visit completed when applicable. PROCEDURE: EXTERNAL GENITALIA: Normal in appearance without lesions VAGINA: Normal in appearance without lesions BIOPSY: Speculum placed into the vagina with excellent visualization of the cervix. Cervix cleaned with betadine. Anterior lip of cervix grasped with single toothed tenaculum. Uterus sounded to 9 cm. Pipelle inserted into the uterus without difficulty and endometrial biopsy obtained. Procedure Summary: Patient tolerated procedure well. ASSESSMENT: heavy menses PLAN: Specimens labeled and sent to Pathology. Will notify patient of results in 1-2 weeks. Post-procedure instructions reviewed and written material given to the patient. Darlyn Warren DO . documented in this encounter [facility] 07-07-2022 Instructions Laila Alva MA - 07/07/2022 11:56 AM EST POST IUD INSTRUCTIONS You may have irregular bleeding during the first 3 months of use. You may have mild-severe cramping for the next 48 hours. You may use over the counter medication (Motrin, Tylenol) as needed. Your IUD must be removed or replaced based on the following table: IUD Type Removed or replaced within: Jennifer 3 years Kyleena 5 years Mirena 8 years Paragard 10 years Call my office for signs/symptoms of infection such as severe cramping, fever, or unusual bleeding. Check for string placement as instructed by your doctor. If you have any additional questions, please contact the office. YOUR RECOVERY After your biopsy you may have: Vaginal bleeding (less than a normal menstrual period) Mild cramping Do NOT put anything in the vagina for 1 week after your endometrial biopsy. This includes: tampons douches and refraining from having sexual intercourse If you have any discomfort, you may take an over the counter pain medication (motrin, advil, ibuprofen, tylenol, etc). If this does not relieve your discomfort, contact the office. It is okay to wear a sanitary pad until the discharge and spotting stops. RISKS Although problems seldom occur with endometrial biopsies, there can be some complications. You may feel faint during and shortly after the procedure as well as have some bleeding after the procedure. There is also a risk of infection after the procedure. These complications are rare and can be easily treated. You should contact you doctor is you have any of the following: Heavy bleeding (more than your normal period) Bleeding with clots Severe abdominal pain Fever (more than 100.4F) Foul smelling vaginal discharge RESULTS We will have the results of your biopsy in 1-2 weeks. If you do not hear the results of your biopsy after 2 weeks, please contact the office for the results. If you have any additional questions or concerns please do not hesitate to contact the office. documented in this encounter [facility] 07-07-2022 Miscellaneous Notes Spoke with patient she will lease picker medication and get STAT CBC on her way today's appointment. Patient aware that this will now be a pre op appointment. Nannette Hawthorne RN Sent in Megace to lease picker on her way to office. Will discuss risks and benefits of starting at appointment. Stat CBC to be completed prior to her appointment so I have results. Given heavy bleeding unlikely that I will be able to do in office hysteroscopy or EMB, so will change to pre op appointment. Will work on scheduling hysteroscopy, D&C, and progesterone IUD insertion. Will need to discuss with anesthesia at [facility]. Discussed with my partner for a second opinion as I will likely need assistance during surgery given BMI 80 Patient is supposed to come into office today at 11 for EMB. Patient states she took the 2 tablets of cytotec vaginally lat night and this morning around 6 am she woke up and her bed was soaked with blood and she was having extreme abdominal cramping. Patient rating cramping at an 8.5 out of 10, radiates into her lower back. Patient is still having heavy bleeding. Patient states she is wearing a pad and filling it up completely every 1.5 hours. Patient instructed to take 800 mg of Ibuprofen for pain, try warm shower and heating pad. Do you still want patient to try and come in today with the heavy bleeding? Nannette Hawthorne RN documented in this encounter [facility] 06-25-2022 Miscellaneous Notes Patient phones requesting refills as follows: Requested Prescriptions Pending Prescriptions Disp Refills pantoprazole DR (PROTONIX) 40 mg tablet 60 tablet 1 Sig: Take 1 tablet by mouth twice daily. Please review and advise. Huseyin Lazo MA documented in this encounter [facility] 06-24-2022 History of Presen t illness Narrative VIRTUAL VISIT PROGRESS NOTE This is a virtual visit using TechniScan video visit. It required patient-provider interaction for the medical decision making as documented below. Lizzy Seth is a 46 year old female seen for follow up of menorrhagia. Using a super plus tampon q 1-2 hours with menses. Having monthly menstrual cycles. Bleeding lasts about 7 days. Bleeding is so heavy it interferes with day to day life when on menses. Having hot flashes and night sweats occasionally. H/o breast cancer. Possibly interested in hysterectomy. HISTORY REVIEWED (electronic chart updated): PAST MEDICAL HISTORY Diagnosis Date Abnormal EKG Anxiety has not worked: Niru Haywardexjolanta Awareness under anesthesia Calculus of gallbladder without cholecystitis without obstruction Chronic back pain Chronic pain disorder Chronic pain syndrome 07/14/2020 Substance agreement signed 08/2019. Discitis Dorsalgia Edema Gout Herpes Hoarseness HTN (hypertension) Hypersomnia Leukocytosis Lumbago of lumbar region with sciatica Major depression, single episode Malignant neoplasm of left breast (HCC) 2016 Morbid obesity (HCC) MAGALY (obstructive sleep apnea) CPAP compliant Osteoarthritis Pancreatitis PCOS (polycystic ovarian syndrome) PONV (postoperative nausea and vomiting) Psoriasis RA (rheumatoid arthritis) (HCC) Right hip pain PAST SURGICAL HISTORY Procedure Laterality Date BREAST LUMPECTOMY HX Left 2012 2016 SECTION HX x 2 EGD 07/2020 EGD W/O BRSH SPEC VARICIES INJ 03/03/2022 Esophagitis OFFICE LEE 2003 PAST SURGICAL HISTORY OF 2013 EGD-dysphagia REMOVAL GALLBLADDER 05/2020 TUBAL LIGATION 2012 FAMILY HISTORY Problem Relation Age of Onset Breast Cancer Mother Schizophrenia Mother Thyroid Mother other (lymphoma) Mother other (htn) Mother Anxiety disorder Father Diabetes Father Stroke Father other (Other) Father vein defect-left leg amputated as a result Alcohol/Drug Sister other (htn) Sister Alcohol/Drug Sister other (Other) Brother 1/2 brother, has not seen since she was 7 other (healthy) Maternal Grandmother other (lung cancer) Maternal Grandfather Diabetes Paternal Grandmother Cervical Cancer Paternal Grandmother Colon Cancer Paternal Grandfather Anesthesia Problems No Family History Social History Tobacco Use Smoking status: Former Packs/day: 1.00 Years: 31.00 Pack years: 31.00 Types: Cigarettes Quit date: 06/20/2020 Years since quittin.0 Smokeless tobacco: Never Tobacco comments: quit 06/19/20 Vapes occasionally Vaping Use Vaping Use: Former Substance Use Topics Alcohol use: Not Currently Comment: not for 15+ years Drug use: Never Current Outpatient Medications Medication Sig miSOPROStol (CYTOTEC) 200 mcg tablet Use 2 tablets vaginally as directed for [address] 2 tablets vaginally qhs before the procedure and 2 the morning of spironolactone (ALDACTONE) 50 mg tablet Take 1 tablet by mouth once daily. Cholecalciferol, Vitamin D3, 50 mcg (2,000 unit) cap Take 1 capsule by mouth once daily. [START ON 07/24/2022] HYDROcodone-Acetaminophen (NORCO) 10-325 mg per tablet Take 1 tablet by mouth every 8 hours as needed for pain. Do not start before July 24, 2022. HYDROcodone-Acetaminophen (NORCO) 10-325 mg per tablet Take 1 tablet by mouth every 8 hours as needed for pain. Do not start before June 24, 2022. HYDROcodone-Acetaminophen (NORCO) 10-325 mg per tablet Take 1 tablet by mouth every 8 hours as needed for pain. Do not start before May 26, 2022. loratadine (CLARITIN) 10 mg tablet Take 1 tablet by mouth once daily. dicyclomine (BENTYL) 10 mg capsule Take 1 capsule by mouth before meals and at bedtime. Clobetasol Propionate 0.05 % lotn Apply to affected area. HYDROcodone-Acetaminophen (NORCO) 10-325 mg per tablet Take 1.5 tablets by mouth twice daily as needed. Do not start before January 29, 2022. lisinopril-hydroCHLOROthiazide (ZESTORETIC) 20-25 mg per tablet Take 1 tablet by mouth once daily. nystatin-triamcinolone (MYCOLOG) ointment Apply sparingly to perineum twice daily for irritation/infection. pantoprazole DR (PROTONIX) 40 mg tablet Take 1 tablet by mouth twice daily. nystatin (MYCOSTATIN) cream Apply to affected area twice daily as needed. MEDICATION, NON-DATABASE A therapist wheelchair mobility referral to document the patient's mobility and functional condition. diphenoxylate-atropine (LOMOTIL) 2.5-0.025 mg per tablet TAKE ONE TABLET BY MOUTH FOUR TIMES A DAY NEEDED acetaminophen (TYLENOL 8 HOUR ORAL) Take by mouth as needed. acyclovir (ZOVIRAX) 200 mg capsule Take 1 capsule by mouth every 4 hours while awake. No current facility-administered medications for this visit. ALLERGIES Allergen Reactions Penicillins Hives, Anaphylaxis, Swelling Other reaction(s): Rash Alyacen [Norethin-E* Intolerance Intolerance-mood change Amlodipine Other: See Comments, Intolerance Severe migraine Tape [Adhesive Tape* Rash REVIEW OF SYSTEMS: As noted in HPI PHYSICAL EXAMINATION: VIDEO EXAM: (if completed, performed via video enabled technology) GENERAL: alert and appropriate, in no distress, well-hydrated, well nourished, and happy, smiling, interactive ASSESSMENT: (N92.0) Menorrhagia with regular cycle (primary encounter diagnosis) (E66.01, Z68.45) Class 3 severe obesity with body mass index (BMI) greater than or equal to 70 in adult, unspecified obesity type, unspecified whether serious comorbidity present (HCC) (Z85.3) History of breast cancer PLAN: Had recent CBC, TSH, pap smear and pelvic US. Recommend endometrial sampling. Discussed high risk for hyperplasia or malignancy given BMI. Discussed option for in office EMB vs D&C. She understands pelvic exams are limited in office and I was unable to visualize cervix at time of annual exam. She understands surgery such as D&C would need to be at a tertiary care center given BMI 80. At this time she does not have transportation to go to a tertiary care center. Order placed for EMB and will have office staff assist in scheduling. If unable to perform EMB in office, will need D&C. Check FSH, estradiol. Darlyn Warren, Medical Decision Making: Problems: Moderate: 2+ stable chronic illnesses Data: Unique test(s) ordered: 3+ Medical Decision Making Level: 4 - Moderate documented in this encounter [facility] 06-24-2022 Miscellaneous Notes Patient phones requesting refills as follows: Requested Prescriptions Pending Prescriptions Disp Refills nystatin (MYCOSTATIN) cream 30 g 5 Sig: Apply to affected area twice daily as needed. loratadine (CLARITIN) 10 mg tablet 90 tablet 1 Sig: Take 1 tablet by mouth once daily. CONSTANTINO 11/02/21 NOV no upcoming appt noted Please review and advise. Lanny Hopper LPN documented in this encounter [facility] 06-24-2022 Miscellaneous Notes Patient phones requesting refills as follows: Requested Prescriptions Pending Prescriptions Disp Refills spironolactone (ALDACTONE) 50 mg tablet 30 tablet 0 Sig: Take 1 tablet by mouth once daily. CONSTANTINO 11/02/21 NOV no upcoming appt noted Please review and advise. Lanny Hopper LPN documented in this encounter [facility] 06-21-2022 History of Presen t illness Narrative Presented for annual exam 10/2021 and noted menorrhagia at that time. Had normal pap and negative HPV. CBC, TSH ordered by PCP and most recent lab work unremarkable. Pelvic US in 2021 showing borderline enlargement of the right ovary and otherwise normal. H/o LEEP and breast cancer. Patient scheduled for follow up today. Patient was logged into my chart virtual encounter but provider unable to connect with patient as running late in office. Unable to reach patient by phone. Voicemail left asking her to call office. With menorrhagia and BMI 80, wanted to check in on her bleeding. Will likely recommend hysteroscopy, D&C, and possible progesterone IUD insertion (would need to coordinate care of this with other providers given h/o breast ca) at a tertiary care center. VM left for patient to call office. documented in this encounter [facility] 06-16-2022 History of Presen t illness Narrative Radiology Service Progress Note PATIENT NAME: Lizzy Seth DATE OF SERVICE: June 16, 2022 TIME: 4:29 PM PATIENT IDENTITY VERIFICATION COMPLETED USING TWO (2) IDENTIFIERS: Name and Date of confirmed by patient verbally. FALL SCREENING: Has the patient had 2 falls in the last year or 1 fall with injury or currently using an Ambulatory Assistive Device (Walker, Cane, Wheelchair, Crutches, etc.)? Yes, Patient High Risk for Falls What interventions were put in place to prevent falls during this visit? Instructed Patient to Call for Help if Needed, Offered Assistance with Transfers/Clothing, Instructed Patient to Remain Seated (Not on Exam Table) Until Exam, and Increased Observations by Caregivers PATIENT GENDER DATA: Female. status: : No status: NO. PATIENT RELEVANT IMPLANT DATA REVIEWED: Not Applicable RADIOLOGY DEPARTMENT: Ultrasound PERIPHERAL IV DATA: Not applicable SIGNED BY: Priscila Castillo RDMS RVT June 16, 2022 4:29 PM documented in this encounter [facility] 05-21-2022 Miscellaneous Notes Patient was transferred to [facility] to make appointment Left message for patient to return phone call. Order is in Epic.INCOMPLETE: NEEDS ADDITIONAL IMAGING EVALUATION There is no abnormality seen in the right breast to correspond with the pain indicated by a triangular marker in the upper outer quadrant, however, ultrasound is recommended.please call , to schedule ----- Message from Darlyn Warren MD sent at 05/20/2022 5:13 PM EST ----- Please notify pt of incomplete mammogram and need for right breast US documented in this encounter [facility] 05-21-2022 Miscellaneous Notes TC patient, left detailed message on results and prescription that was sent into pharmacy. Advised patient that if she has any questions she can call back in and speak with triage nurse. Anamika Chavez RN Please let Nery know that I received her lab results. Her vitamin D level is low. I'm sending a daily vitamin D3 supplement in for her. Her A1C (3-month blood glucose average) remains in the prediabetes range. No other concerns. The following approved medication requests have been transmitted electronically. Requested Prescriptions Signed Prescriptions Disp Refills Cholecalciferol, Vitamin D3, 50 mcg (2,000 unit) cap 90 capsule 3 Sig: Take 1 capsule by mouth once daily. Authorizing Provider: KODI DIAMOND APRN.CNP documented in this encounter [facility] 05-20-2022 History of Presen t illness Narrative See result note Right breast US ordered documented in this encounter [facility] 05-20-2022 Miscellaneous Notes Patient has been identified by name and date of : Yes Patient phones for refill(s): Requested Prescriptions Pending Prescriptions Disp Refills spironolactone (ALDACTONE) 50 mg tablet 30 tablet 0 Sig: Take 1 tablet by mouth once daily. Date of last office visit in primary care: 05/17/22 Please advise. Thank you. Vy Herring LPN documented in this encounter [facility] 05-20-2022 Miscellaneous Notes Called PT [facility] to call back and schedule appointment with Ty Potts. Felicitas PSS Please assist patient to schedule appointment with Ty Potts in GI. Kodi Diamond APRN.MILLWORK ESTIMATOR documented in this encounter [facility] 05-17-2022 History of Presen t illness Narrative Radiology Service Progress Note PATIENT NAME: Lizzy Seth DATE OF SERVICE: May 17, 2022 TIME: 1:17 PM PATIENT IDENTITY VERIFICATION COMPLETED USING TWO (2) IDENTIFIERS: Name and Date of confirmed by patient verbally. FALL SCREENING: Has the patient had 2 falls in the last year or 1 fall with injury or currently using an Ambulatory Assistive Device (Walker, Cane, Wheelchair, Crutches, etc.)? Yes, Patient High Risk for Falls Wheel Chair What interventions were put in place to prevent falls during this visit? Increased Observations by Caregivers PATIENT GENDER DATA: Female. status: : No status: NO. PATIENT RELEVANT IMPLANT DATA REVIEWED: Not Applicable RADIOLOGY DEPARTMENT: Mammography PERIPHERAL IV DATA: Not applicable SIGNED BY: Pearl Ellsworth [employer] May 17, 2022 1:17 PM documented in this encounter [facility] 05-17-2022 History of Presen t illness Narrative AMBULATORY TELEPHONE VISIT Lizzy Seth has consented to this telephone encounter. Persons Present: patient Chief Complaint/Reason: medication review HPI: Due for a refill on her [place]. For about a week has had a pain in her right upper chest/breast area. Is intermittent. Notices it worse in the morning when she wakes up-shoots down through her armpit and up toward her right shoulder blade. Had COVID last month. Was very SOB at times. Was glad she had her bipap because didn't think she would have been able to make it without going to the hospital. Since COVID has been more intolerant of foods. Bloating. Has seen Ty Potts with GI in the past and would like to get back in with her. Data Reviewed: Most recent labs and imaging results. OARRS report PDMP website checked and validated. All prescriptions have been APPROPRIATELY filled. No suspicious activity was identified. 05/17/2022 by Kodi Diamond CNP. Assessment: (N64.4) Breast pain, right (primary encounter diagnosis) (R07.9) Right-sided chest pain (R73.03) Prediabetes (E88.81) Dysmetabolic syndrome (I10) Essential hypertension (U09.9) [id number] condition (E55.9) Vitamin D deficiency (Z13.29) Screening for thyroid disorder (M54.50, G89.29) Chronic midline low back pain without sciatica (G89.4) Chronic pain syndrome (M70.61) Trochanteric bursitis of right hip Plan: Obtain labs. Xray chest. Suspect breast/chest pain r/t muscle strain, costochondritis. Pending xray and la results, likely naproxen bid x14 days. Refill [place]. PDMP website checked and validated. All prescriptions have been APPROPRIATELY filled. No suspicious activity was identified. 05/17/2022 by Kodi Diamond CNP. Kodi Diamond APRN.CNP documented in this encounter [facility] 04-21-2022 Miscellaneous Notes The following approved medication requests have been transmitted electronically. Requested Prescriptions Signed Prescriptions Disp Refills loratadine (CLARITIN) 10 mg tablet 90 tablet 1 Sig: Take 1 tablet by mouth once daily. Kodi Diamond APRN.CNP documented in this encounter [facility] 04-20-2022 Miscellaneous Notes Patient has been identified by name and date of : Yes Patient phones for refill(s): Requested Prescriptions Pending Prescriptions Disp Refills spironolactone (ALDACTONE) 50 mg tablet 30 tablet 0 Sig: Take 1 tablet by mouth once daily. Date of last office visit in primary care: 02/03/22 Please advise. Thank you. Vy Herring LPN documented in this encounter [facility] 04-19-2022 Miscellaneous Notes Pt informed via [facility] message Lupe Segundo Ma I'm sending in the refill for this month, but we'll need to have a visit-virtual is fine-sometime in mid May for medication review prior to her next refill. PDMP website checked and validated. All prescriptions have been APPROPRIATELY filled. No suspicious activity was identified. 04/19/2022 by Kodi Diamond CNP. The following approved medication requests have been transmitted electronically. Requested Prescriptions Signed Prescriptions Disp Refills HYDROcodone-Acetaminophen (NORCO) 10-325 mg per tablet 90 tablet 0 Sig: Take 1 tablet by mouth every 8 hours as needed for pain. Do not start before April 23, 2022. Kodi Diamond APRN.MILLWORK ESTIMATOR Last office visit: 02/03/22 F/u scheduled: none Last refilled on: [place] #90 on 03/26/22 Aida Kimbrough Ma documented in this encounter [facility] 03-24-2022 Miscellaneous Notes Patient returned call, advised to call Ty Potts for follow up results after surgery per . This patient should be following up with Ty Potts Patient reports she recently had a EGD performed by Dr. Fuentes and is asking if someone could contact her with the results, or advise who she should see for follow-up of results? Please call pt at [phone]. Thank you. documented in this encounter [facility] 03-18-2022 Miscellaneous Notes Constantino-- 02/03/22 next --- none scheduled Last refill--02/17/22 30 with 0 refills Last labs--07/24/21 documented in this encounter [facility] 03-03-2022 History and physical note CHIEF COMPLAINT: Patient presents with: Gas: stomach bloating in upper abdomen and chest Nausea & Vomiting Heartburn Constipation Diarrhea: and then constipation. Had two episodes of diarrhea last week This consult was requested by Kodi Diamond APRN* for an opinion regarding My final recommendations will be communicated to the requesting health care provider by way of the shared medical record for internal providers or letter via the [employer] for external providers. The patient was seen by Kodi Diamond on 07/24/2021, leading to this consultation. That note has been reviewed and part as follows: Lizzy Seth is a 45 year old female who presents for No chief complaint on file.. Patient presents with: Gas O2 level: gasping for air during the night, O2 range 83-97 Thyroid Problem Hair Loss Derm Problem: facial dry skin Menstrual Problem: 21 days late HPI: Lizzy Seth is a 45 year old female who presents to the office today for review of health conditions. Concerns today: Stomach-had gallbladder removed, and felt a popping in her RUQ. Anytime that she eats at all, has severe bloating-is creating pressure in her chest. A large lump sticking out of her abdomen. O2-at night her oxygen levels are dropping to 83-97%. Has been going on for 1.5-2 weeks. Woke up gasping for air at one point. Does wear her CPAP at nighttime, but scared to sleep. Lays flat/with 2 pillows, on her left side-has to, r/t to pain. Has given up on the bariatric surgery for now. Mentally is not in the right place for it right now. Is SOB walking just a short distance. Hair is falling out like crazy. Hair is so much thinner. Comes out a lot when she showers as well as when when she brushes her hair. Mother has thyroid hx. Her period is late-21 days right now. Very heavy bleeding. Face-for 2 weeks has been dry, red, slightly itchy, tight, zelaya. Taking a lot of naps during the night again. HPI: Patient reports symptoms of bloating, nausea bad heartburn, acid reflux have been worsening over the last 2 months. She reports recently had a episode of vomiting with relief after vomiting. She Also is having the feeling of getting full fast. She states it almost feels like it did when I had my gallbladder She reports having increase in gas and foul smelling stools. Lately having a increase BM - daily - up to 3-4 times a day and soft BM. DEnies blood or black stool. She is taking omeprazole 20mg OTC once daily She is taking Bentyl before she eats . She reports in 2013 she was having food getting stuck and maybe a small hernia was found. Drinks 4-6 cups of coffee a day Record Review: [facility] / Outside records reviewed. 08/10/2021 US ABD: IMPRESSION: 1. No biliary dilatation 2. No ascites 3. 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 There has been a slight increase in size of the largest nodule, although this could be due to differences in technique. 08/10/2021 US FEMALE PELVIS TRANSVAG IMPRESSION: Borderline enlargement of the right ovary; otherwise unremarkable sonographic exam of the pelvis. PAST MEDICAL HISTORY PAST MEDICAL HISTORY Diagnosis Date Abnormal EKG Anxiety has not worked: Hernandezmballeandro, Effexor Awareness under anesthesia Calculus of gallbladder without cholecystitis without obstruction Chronic back pain Chronic pain disorder Chronic pain syndrome 07/14/2020 Substance agreement signed 08/2019. Discitis Dorsalgia Edema Gout Herpes Hoarseness HTN (hypertension) Hypersomnia Leukocytosis Lumbago of lumbar region with sciatica Major depression, single episode Malignant neoplasm of left breast (HCC) 2017 Morbid obesity (HCC) MAGALY (obstructive sleep apnea) CPAP compliant Osteoarthritis Pancreatitis PCOS (polycystic ovarian syndrome) PONV (postoperative nausea and vomiting) Psoriasis RA (rheumatoid arthritis) (HCC) Right hip pain PAST SURGICAL HISTORY PAST SURGICAL HISTORY Procedure Laterality Date BREAST LUMPECTOMY HX Left 2012 2016 SECTION HX x 2 OFFICE LEEP 2003 PAST SURGICAL HISTORY OF 2013 EGD-dysphagia REMOVAL GALLBLADDER TUBAL LIGATION 2012 Allergies: ALLERGIES ALLERGIES Allergen Reactions Penicillins Hives, Anaphylaxis, Swelling Other reaction(s): Rash Alyacen [Norethin-E* Intolerance Intolerance-mood change Amlodipine Other: See Comments, Intolerance Severe migraine Tape [Adhesive Tape* Rash Medications: CURRENT MEDICATIONS spironolactone (ALDACTONE) 50 mg tablet Take 1 tablet by mouth once daily. nystatin (MYCOSTATIN) cream Apply to affected area twice daily as needed. dicyclomine (BENTYL) 10 mg capsule Take 1 capsule by mouth before meals and at bedtime. diphenoxylate-atropine (LOMOTIL) 2.5-0.025 mg per tablet TAKE ONE TABLET BY MOUTH FOUR TIMES A DAY NEEDED Glucosamine-Chondroitin (OSTEO BI-FLEX) 250-200 mg tab Take by mouth. Contains Tumeric acetaminophen (TYLENOL 8 HOUR ORAL) Take by mouth as needed. diphenhydrAMINE (BENADRYL) 25 mg capsule Take 1 capsule by mouth every 6 hours as needed for itching/rash. lisinopril-hydroCHLOROthiazide (ZESTORETIC) 20-25 mg per tablet Take 1 tablet by mouth once daily. acyclovir (ZOVIRAX) 200 mg capsule Take 1 capsule by mouth every 4 hours while awake. pantoprazole [address] (PROTONIX) 40 mg tablet Take 1 tablet by mouth twice daily. MEDICATION, NON-DATABASE A therapist wheelchair mobility referral to document the patient's mobility and functional condition. triamcinolone acetonide (KENALOG) 0.1 % cream Apply 1 application to affected area three times daily as needed. Apply sparingly to area for rash/itching. lisdexamfetamine (VYVANSE) 30 mg capsule Take 1 capsule by mouth once daily for 30 days. metFORMIN (GLUCOPHAGE) 500 mg tablet Take 1 tablet by mouth daily with breakfast for 14 days, THEN 1 tablet twice daily with meals for 14 days. DULoxetine (CYMBALTA) 60 mg capsule Take 1 capsule by mouth once daily. Biotin 10,000 mcg cap Take by mouth. FAMILY HISTORY FAMILY HISTORY Problem Relation Age of Onset Breast Cancer Mother Schizophrenia Mother Thyroid Mother other (lymphoma) Mother other (htn) Mother Anxiety disorder Father Diabetes Father Stroke Father other (Other) Father vein defect-left leg amputated as a result Alcohol/Drug Sister other (htn) Sister Alcohol/Drug Sister other (Other) Brother 1/2 brother, has not seen since she was 7 other (healthy) Maternal Grandmother other (lung cancer) Maternal Grandfather Diabetes Paternal Grandmother Colon Cancer Paternal Grandfather OCCUPATION & MARITAL STATUS Employer And Job Title: None on file Years Of Education Completed: Not specified Marital Status: to Kit SOCIAL HISTORY Social History Tobacco Use Smoking status: Former Smoker Packs/day: 1.00 Years: 31.00 Pack years: 31.00 Types: Cigarettes Quit date: 06/20/2020 Years since quittin.1 Smokeless tobacco: Never Used Tobacco comment: quit 06/19/20 Vaping Use Vaping Use: current everyday user Substance Use Topics Alcohol use: Not Currently Comment: not for 15+ years Drug use: Never Review of Systems: Review of Systems Constitutional: Positive for fatigue. Respiratory: Positive for chest tightness and shortness of breath. Gastrointestinal: Positive for abdominal distention, abdominal pain, constipation, diarrhea, nausea and vomiting. All other systems reviewed and are negative. Are you taking any blood thinners? No Physical Examination: Pulse 96 Wt 442 lb (200.5kg) SpO2 97% LMP 08/01/2021 Physical Exam Constitutional: Appearance: Normal appearance. She is obese. Comments: Patient in wheelchair HENT: Head: Normocephalic and atraumatic. Eyes: Extraocular Movements: Extraocular movements intact. Pupils: Pupils are equal, round, and reactive to light. Cardiovascular: Rate and Rhythm: Normal rate and regular rhythm. Pulses: Normal pulses. Heart sounds: Normal heart sounds. Pulmonary: Effort: Pulmonary effort is normal. Abdominal: General: Abdomen is flat. Bowel sounds are normal. Palpations: Abdomen is soft. Tenderness: There is abdominal tenderness in the epigastric area. Musculoskeletal: General: Normal range of motion. Cervical back: Normal range of motion and neck supple. Skin: General: Skin is warm and dry. Neurological: General: No focal deficit present. Mental Status: She is alert and oriented to person, place, and time. Psychiatric: Mood and Affect: Mood normal. Behavior: Behavior normal. Assessment/Plan (R11.0) Nausea (primary encounter diagnosis) (R14.0) Abdominal bloating (R14.0) Bloating (R12) Heartburn (K52.9) Frequent stools 1. Abdominal bloating - CONSULT TO GASTROENTEROLOGY - H PYLORI IGG AB; Future - pantoprazole DR (PROTONIX) 40 mg tablet; Take 1 tablet by mouth twice daily. Dispense: 60 tablet; Refill: 1 - EGD DIAGNOSTIC 2. Nausea Start pantoprazole 40mg twice daily on empty stomach and wait 30 min before eating. Avoid NSAIDs (such as Advil, Ibuprofen, Excedrin, Mobic), tobacco, alcohol, carbonated beverages, caffeine, chocolate, tomato based sauces, spicy/fatty foods, and peppermint Avoid eating large meals. Avoid eating less than 3 hours before bed. Weight loss. Elevate the head of the bed 6 inches, or at least invest in a wedge pillow. - H PYLORI IGG AB; Future - pantoprazole DR (PROTONIX) 40 mg tablet; Take 1 tablet by mouth twice daily. Dispense: 60 tablet; Refill: 1 - EGD DIAGNOSTIC - EGD will need to be done at [place] - patient [facility] is a better location because having issues with transportation. 3. Bloating - H PYLORI IGG AB; Future - pantoprazole DR (PROTONIX) 40 mg tablet; Take 1 tablet by mouth twice daily. Dispense: 60 tablet; Refill: 1 - EGD DIAGNOSTIC 4. Heartburn - H PYLORI IGG AB; Future - pantoprazole DR (PROTONIX) 40 mg tablet; Take 1 tablet by mouth twice daily. Dispense: 60 tablet; Refill: 1 - EGD DIAGNOSTIC 5. Frequent stools - Start OTC probiotic with at least 15 billion live cultures, 10+ strains - Drink around 64 oz water daily - Benefiber daily: 2 teaspoons added to 8 ounces of water up to 3 times daily. Follow up in office 3 months/PRN. Recommended to please call office/go to ER if fever, chills, chest pain, SOB, diarrhea, nausea, emesis, worsening abdominal pain, dehydration occurs I spent 30 minutes in the visit, with more than 50% of the total [id number] time of the visit in counseling / coordination of care. I have confirmed and edited as necessary, the PFSH and ROS obtained by others. Ty Potts APRN.MILLWORK ESTIMATOR UPDATED HISTORY AND PHYSICAL EXAMINATION SERVICE DATE: 03/03/2022 SERVICE TIME: 8:38 AM PHYSICAL EXAM MUST BE COMPLETED ON ADMISSION The History and Physical (completed in the past 30 days) has been reviewed and the patient has been examined. The contents accurately reflect the patient's condition with the following additions or revisions since the H&P was completed. Examination indicates no changes. This H&P can be found in the attached. SIGNATURE: Roeny Fuentes III, MD PATIENT NAME: Lizzy Seth DATE: March 03, 2022 TIME: 8:12 AM documented in this encounter [facility] 02-22-2022 Instructions Carly Dye PA-C - 02/22/2022 10:40 AM EDT PATIENT PREOPERATIVE INSTRUCTIONS Roney Fuentes MD has scheduled you for your procedure at this surgery center: [facility]: [phone] -- [address] [address]. Please read below carefully for your personalized instructions. Dietary Restrictions: - No solid food after midnight. - You may have 12 ounces of clear liquids (water, clear juices such as apple juice or gatorade, carbonated beverages, clear tea, black coffee, jello) until 2 hours before scheduled arrival at facility. Medications: Unless instructed differently below, stay on all of your medications until your surgery. Approved medications to take the morning of surgery with a sip of water: [place] if needed, Protonix Hold Adipex for 7 days prior to procedure. If you start any new medications after today's visit, please contact the surgeon's office. Blood Thinning Medications: Please follow Dr. Fuentes's instructions regarding which hchq-vbs-zkarvir supplements and blood thinners you need to avoid prior to your upcoming procedure - Stop NSAIDS (Ibuprofen, Advil, Aleve, Motrin, Celebrex, Mobic, etc.) 7 days before surgery, as directed by your surgeon. - Stop Aspirin 7 days before surgery, as directed by your surgeon. - Stop Vitamin E, ALL multi-vitamins, herbals and dietary supplements 14 days before surgery. - You may take Tylenol (Acetaminophen) or any of your pain medications that do not contain aspirin or NSAIDS as needed. Important Reminders: - If you use CPAP/BIPAP, bring the machine with you to the surgery center. - Candy, mints, and tobacco products are NOT permitted the morning of surgery. - Hearing aids, dentures and glasses may be worn the morning of surgery. - NO jewelry, body piercings, makeup, hairpins or contacts are to be worn the day of surgery. If you develop symptoms such as a fever, cold, or flu, or have other changes to your health within TWO DAYS of scheduled surgery or the morning of surgery, please contact the surgery center above. Personal Belongings: -Please have photo ID and insurance cards. -If you do not have a copy of advance directives on file with us, please bring a copy with you on the day of surgery. - Leave ALL valuables and money at home or with family members. For Outpatient Procedures: - YOU MUST HAVE A RESPONSIBLE PALLIATIVE SENIOR NP TAKE YOU HOME. A RN TRANSITIONAL OR COMMUNITY MUSIC THERAPIST CANNOT BE MADE A RESPONSIBLE PALLIATIVE SENIOR NP. - We recommend that a responsible person stays with you overnight to take care of you. - You cannot stay in a hotel alone after outpatient surgery. You will not be permitted to have your surgery, if you do not have someone to take care of you. Arrival Time for Surgery: - The Surgery Center or hospital where you are having surgery will call the afternoon before surgery (or Tuesday for Tuesday surgery) with a scheduled arrival time. - If you have not heard by 4 pm, please contact the surgery center above. Please be aware that emergency situations arise, which may delay or change your surgical time. If this happens, we will notify you as soon as possible and regret any inconvenience. If you already have an Advance Directive, please fax a copy to [phone] or email to for it to be added to your chart. If you do not have an Advance Directive, you can find the appropriate form and more information at [email or web address]. We recommend that you complete the Advance Directive form found on the website and bring it with you the day of your surgery. It can be witnessed and scanned into your chart that day. Carly Dye PA-C documented in this encounter [facility] 02-22-2022 History and physical note PREANESTHESIA CONSULT CLINIC TELEHEALTH VISIT Patient has been identified by name and date of : Yes This is a virtual visit using TechniScan video visit. It require patient-provider interaction for the medical decision making as documented below. Reason for contact: PACC visit Accompanied by: Spouse Scheduled Surgery: EGD Subjective CHIEF COMPLAINT: Patient presents with: Pre-Op Visit HPI: This is a 46 year old female who presents with bloating after meals, epigastric pain and pressure, heartburn, nausea. Since starting Bentyl, she reports great improvement of symptoms. Symptoms started more than 6 months ago. She elects to proceed with above procedure. ACTIVE PROBLEM LIST Abdominal Pain Obesity, Class III, BMI >= 40 (morbid obesity) ([facility]) E66.01 Wound of Left Breast Rheumatoid Arthritis Involving Multiple Sites (Hcc) Seasonal Allergic Rhinitis Psoriatic Arthritis (Hcc) Hsv-2 (Herpes Simplex Virus 2) Infection Anxiety With Depression Essential Hypertension Pcos (Polycystic Ovarian Syndrome) Symptomatic Cholelithiasis Chronic Pain Syndrome Dysmetabolic Syndrome Prediabetes Abnormal Menstruation Magaly (Obstructive Sleep Apnea) PAST MEDICAL HISTORY Diagnosis Date Abnormal EKG Anxiety has not worked: Cymbalta, Effexor Awareness under anesthesia Calculus of gallbladder without cholecystitis without obstruction Chronic back pain Chronic pain disorder Chronic pain syndrome 07/14/2020 Substance agreement signed 08/2019. Discitis Dorsalgia Edema Gout Herpes Hoarseness HTN (hypertension) Hypersomnia Leukocytosis Lumbago of lumbar region with sciatica Major depression, single episode Malignant neoplasm of left breast (HCC) 2016 Morbid obesity (HCC) MAGALY (obstructive sleep apnea) CPAP compliant Osteoarthritis Pancreatitis PCOS (polycystic ovarian syndrome) PONV (postoperative nausea and vomiting) Psoriasis RA (rheumatoid arthritis) (HCC) Right hip pain PAST SURGICAL HISTORY Procedure Laterality Date BREAST LUMPECTOMY HX Left 2012 2016 SECTION HX x 2 EGD 07/2020 OFFICE LEEP 2003 PAST SURGICAL HISTORY OF 2013 EGD-dysphagia REMOVAL GALLBLADDER 05/2020 TUBAL LIGATION 2013 FAMILY HISTORY Problem Relation Age of Onset Breast Cancer Mother Schizophrenia Mother Thyroid Mother other (lymphoma) Mother other (htn) Mother Anxiety disorder Father Diabetes Father Stroke Father other (Other) Father vein defect-left leg amputated as a result Alcohol/Drug Sister other (htn) Sister Alcohol/Drug Sister other (Other) Brother 1/2 brother, has not seen since she was 7 other (healthy) Maternal Grandmother other (lung cancer) Maternal Grandfather Diabetes Paternal Grandmother Cervical Cancer Paternal Grandmother Colon Cancer Paternal Grandfather Anesthesia Problems No Family History Social History Tobacco Use Smoking status: Former Packs/day: 1.00 Years: 31.00 Pack years: 31.00 Types: Cigarettes Quit date: 06/20/2020 Years since quittin.6 Smokeless tobacco: Never Tobacco comments: quit 06/19/20 Vapes occasionally Vaping Use Vaping Use: Former Substance Use Topics Alcohol use: Not Currently Comment: not for 15+ years Drug use: Never ALLERGIES Allergen Reactions Penicillins Hives, Anaphylaxis, Swelling Other reaction(s): Rash Alyacen [Norethin-E* Intolerance Intolerance-mood change Amlodipine Other: See Comments, Intolerance Severe migraine Tape [Adhesive Tape* Rash MEDICATIONS: Current Outpatient Medications Medication Sig loratadine (CLARITIN) 10 mg tablet Take by mouth. Clobetasol Propionate 0.05 % lotn Apply to affected area. spironolactone (ALDACTONE) 50 mg tablet Take 1 tablet by mouth once daily. HYDROcodone-Acetaminophen (NORCO) 10-325 mg per tablet Take 1.5 tablets by mouth twice daily as needed. Do not start before January 29, 2022. lisinopril-hydroCHLOROthiazide (ZESTORETIC) 20-25 mg per tablet Take 1 tablet by mouth once daily. dicyclomine (BENTYL) 10 mg capsule Take 1 capsule by mouth before meals and at bedtime. nystatin-triamcinolone (MYCOLOG) ointment Apply sparingly to perineum twice daily for irritation/infection. pantoprazole DR (PROTONIX) 40 mg tablet Take 1 tablet by mouth twice daily. MEDICATION, NON-DATABASE A therapist wheelchair mobility referral to document the patient's mobility and functional condition. diphenoxylate-atropine (LOMOTIL) 2.5-0.025 mg per tablet TAKE ONE TABLET BY MOUTH FOUR TIMES A DAY NEEDED Phentermine HCl (ADIPEX-P) 37.5 mg tablet Take 1 tablet by mouth once daily for 30 days. BMI 80.83 [START ON 03/26/2022] HYDROcodone-Acetaminophen (NORCO) 10-325 mg per tablet Take 1 tablet by mouth every 8 hours as needed for pain. Do not start before March 26, 2022. [START ON 02/26/2022] HYDROcodone-Acetaminophen (NORCO) 10-325 mg per tablet Take 1.5 tablets by mouth every 8 hours as needed for pain. Do not start before February 26, 2022. nystatin (MYCOSTATIN) cream Apply to affected area twice daily as needed. acetaminophen (TYLENOL 8 HOUR ORAL) Take by mouth as needed. acyclovir (ZOVIRAX) 200 mg capsule Take 1 capsule by mouth every 4 hours while awake. No current facility-administered medications for this visit. COVID VACCINATION STATUS: Fully vaccinated REVIEW OF SYSTEMS: Pain Assessment: General: No weight loss, malaise or fevers. 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 No neurological symptoms or problems. 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 : Denies, Patient's last menstrual period was 10/07/2021. Endocrine: No history of diabetes. Has not taken steroids within the past 30 days. No history of endocrinological symptoms or problems. Hematology: No history of bleeding or clotting disorder. Pt is not taking anti-coagulation or platelet medications. No history of hematological symptoms or problems. Oncology: No history of CA metastasis, chemo within 30 days, or radiotherapy within 90 days. Has not lost 10% of body wt in 6 months. No history of oncological symptoms or problems. Psych: No history of psychiatric symptoms or problems. Musculoskeletal: chronic back and joint pain, RA and Psoriatic arthritis - on [place] bid and uses Mobility scooter Skin: Negative for lesions, rash and itching. Objective PHYSICAL EXAM: Pulse 93[apple watch[ Ht 5' 1 [patient reported[ (1.55m) Wt 427 lb (193.7kg) LMP 10/07/2021 BMI 80.72 kg/(m^2). VIDEO EXAM: (if completed, performed via video enabled technology) GENERAL: alert and appropriate, in no distress, well-hydrated, well nourished, happy, smiling, interactive, and overweight SKIN: no rash noted HEAD: normocephalic, no abnormality or lesion noted EYES: no injection NOSE: external nose normal without rhinorrhea NECK: short/thick neck, pannus, limited extension RESPIRATORY: breathing non-labored and no grunting/flaring/retractions CHEST: equal chest rise with normal respiratory effort HEART: patient was unable to find her pulse. HR 93 on apple watch. No cyanosis ABDOMEN: mild TTP noted in the epigastrium NEUROLOGIC: no cerebral deficits noted Diagnostic tests reviewed for today's visit: Hemoglobin A1C (%) Date Value 07/24/2021 6.0 04/17/2020 5.7 09/07/2019 5.5 Glucose (mg/dL) Date Value 07/24/2021 83 Potassium (mmol/L) Date Value 07/24/2021 4.3 Sodium (mmol/L) Date Value 07/24/2021 136 Chloride (mmol/L) Date Value 07/24/2021 99 CO2 (mmol/L) Date Value 07/24/2021 25 Creatinine (mg/dL) Date Value 07/24/2021 0.70 BUN (mg/dL) Date Value 07/24/2021 10 Anion Gap (mmol/L) Date Value 07/24/2021 12 Calcium (mg/dL) Date Value 07/24/2021 10.0 Protein, Total (g/dL) Date Value 07/24/2021 7.5 Albumin (g/dL) Date Value 07/24/2021 4.6 Bilirubin, Total (mg/dL) Date Value 07/24/2021 0.3 Alkaline Phosphatase (U/L) Date Value 07/24/2021 79 AST (U/L) Date Value 07/24/2021 26 ALT (U/L) Date Value 07/24/2021 33 Stress test 09/30/2020 (scanned) Dobutamine Stress echo with no evidence of ischemia No arrhythmias noted Normal resting echocardiogram EKG 04/24/2020 NORMAL SINUS RHYTHM INFERIOR MYOCARDIAL INFARCTION , AGE UNDETERMINED ANTERIOR MYOCARDIAL INFARCTION , AGE UNDETERMINED Previous EKG 2018 scanned from [facility] with similar reading Spirometry 08/18/2021 IMPRESSION: Spirometry is normal. There was not a significant bronchodilator response. Impression/Recommendations ASSESSMENT: Essential hypertension Assessment: on Lisinopril/hctz and Aldactone. MAGALY (obstructive sleep apnea) Assessment: uses Bipap Prediabetes Assessment: most recent Hgb A1c 6.0% 07/24/2021. Patient reports she was given Metformin at one point for weight loss, but was unable to tolerate GI side effects. Chronic pain syndrome Assessment: patient reports chronic pain secondary to RA and psoriatic arthritis. She takes [place] 1.5 tablets bid for this. Body mass index (BMI) 70 or greater, adult ([facility]) Assessment: BMI 80.68. Patient has a phentermine prescription, but has not started it at this time. She will hold the medication 1 week prior to procedure. Former smoker Assessment: quit 2019, 1 ppd x 31 years. Patient still vapes occasionally. Encouraged cessation GERD (gastroesophageal reflux disease) Assessment: patient reports she takes Protonix prn for this. METS: Limited most or all of the time (uses scooter, mobility device) Does have SOB when walking which she attributes to her weight. Denies new or worsening symptoms. Denies CP, syncope, palpitations, or pre-syncope Walks with a walker to the bathroom. Otherwise in wheelchair/scooter ASA Class: 3 ANESTHESIA FINDINGS: Intubation History: No history of difficult intubation Significant Anesthesia Considerations: Postop nausea/vomiting and Slow emergence - patient reports mild prolonged awakening after cholecystectomy, but did not require admission. Patient reports she awoke during LEEP procedure. Was unsure what type of anesthesia was used during that procedure. Airway Exam: General: Morbid obesity Mallampati Score is CLASS II ULBT: Class I - Lower incisors can bite the upper lip above the delia line Neck: short/thick neck, limited extension, pannus Mouth: Normal tongue size and Mouth opening greater than 2 finger breaths Dentition: missing right upper and left lower and upper teeth Airway History: No abnormal airway history STOP BANG Score: AMGALY uses CPAP/BiPAP PLAN: This patient is optimally prepared for EGD. CONSULTS: Anesthesia Consult chart review - [employer] message sent. Acknowledged by Dr. Harrington. The Following Tests/Procedures Have Been Initiated: No new testing ordered Planned Anesthetic: MAC Instructions Given to Patient: Patient given verbal instructions and voices comprehension and compliance. Copy sent electronically via My Chart, email, or mobile device. This is a virtual visit. It required patient-provider interaction for the medical decision making as documented above. SIGNATURE: Carly Dye PA-C PATIENT NAME: Lizzy Seth DATE: 02/22/2022 TIME: 10:20 AM PAGER/CONTACT #: documented in this encounter [facility] 02-16-2022 Miscellaneous Notes Last office visit: 02/03/22 F/u scheduled: none Aida Kimbrough Ma documented in this encounter [facility] 02-10-2022 Miscellaneous Notes Images from the original note were not included. Notified medication is not covered by [facility], patient was notified Prior Authorization has been completed online at [employer] for Phentermine 37.5 mg, will await response. [id number] Please keep encounter open until final decision has been received and documented from insurance company. Mirian Alejandre MA documented in this encounter [facility] 02-04-2022 Miscellaneous Notes OV faxed within [employer] to Claudia Hale at F#: [phone]. Arue Lovell Ma Please fax my virtual encounter note from yesterday 02/03 to Claudia. Kodi Diamond APRN.ALEXANDRU documented in this encounter [facility] 02-03-2022 History of Presen t illness Narrative VIRTUAL VISIT PROGRESS NOTE This is a virtual visit using TechniScan video visit. It required patient-provider interaction for the medical decision making as documented below. Lizzy Seth is a 46 year old female seen for bipap concerns. Needs an appointment to check up on her bipap machine. Uses [employer]. Doing great with current machine. Puts it on and sleeps very well. No complaints, feels this is a great addition to hr regimen. Interested in possibly taking a pill to help with her weight, to see if this can help jump start her weight. HISTORY REVIEWED (electronic chart updated): PAST MEDICAL HISTORY Diagnosis Date Abnormal EKG Anxiety has not worked: Niru Haywardexor Awareness under anesthesia Calculus of gallbladder without cholecystitis without obstruction Chronic back pain Chronic pain disorder Chronic pain syndrome 07/14/2020 Substance agreement signed 08/2019. Discitis Dorsalgia Edema Gout Herpes Hoarseness HTN (hypertension) Hypersomnia Leukocytosis Lumbago of lumbar region with sciatica Major depression, single episode Malignant neoplasm of left breast (HCC) 2017 Morbid obesity (HCC) MAGALY (obstructive sleep apnea) CPAP compliant Osteoarthritis Pancreatitis PCOS (polycystic ovarian syndrome) PONV (postoperative nausea and vomiting) Psoriasis RA (rheumatoid arthritis) (HCC) Right hip pain PAST SURGICAL HISTORY Procedure Laterality Date BREAST LUMPECTOMY HX Left 2012 2016 SECTION HX x 2 OFFICE LEEP 2003 PAST SURGICAL HISTORY OF 2013 EGD-dysphagia REMOVAL GALLBLADDER TUBAL LIGATION 2012 FAMILY HISTORY Problem Relation Age of Onset Breast Cancer Mother Schizophrenia Mother Thyroid Mother other (lymphoma) Mother other (htn) Mother Anxiety disorder Father Diabetes Father Stroke Father other (Other) Father vein defect-left leg amputated as a result Alcohol/Drug Sister other (htn) Sister Alcohol/Drug Sister other (Other) Brother 1/2 brother, has not seen since she was 7 other (healthy) Maternal Grandmother other (lung cancer) Maternal Grandfather Diabetes Paternal Grandmother Cervical Cancer Paternal Grandmother Colon Cancer Paternal Grandfather Social History Tobacco Use Smoking status: Former Smoker Packs/day: 1.00 Years: 31.00 Pack years: 31.00 Types: Cigarettes Quit date: 06/20/2020 Years since quittin.6 Smokeless tobacco: Never Used Tobacco comment: quit 06/19/20 Vaping Use Vaping Use: Former Substance Use Topics Alcohol use: Not Currently Comment: not for 15+ years Drug use: Never Current Outpatient Medications Medication Sig [START ON 03/26/2022] HYDROcodone-Acetaminophen (NORCO) 10-325 mg per tablet Take 1 tablet by mouth every 8 hours as needed for pain. Do not start before March 26, 2022. [START ON 02/26/2022] HYDROcodone-Acetaminophen (NORCO) 10-325 mg per tablet Take 1.5 tablets by mouth every 8 hours as needed for pain. Do not start before February 26, 2022. HYDROcodone-Acetaminophen (NORCO) 10-325 mg per tablet Take 1.5 tablets by mouth twice daily as needed. Do not start before January 29, 2022. spironolactone (ALDACTONE) 50 mg tablet Take 1 tablet by mouth once daily. lisinopril-hydroCHLOROthiazide (ZESTORETIC) 20-25 mg per tablet Take 1 tablet by mouth once daily. dicyclomine (BENTYL) 10 mg capsule Take 1 capsule by mouth before meals and at bedtime. nystatin-triamcinolone (MYCOLOG) ointment Apply sparingly to perineum twice daily for irritation/infection. pantoprazole DR (PROTONIX) 40 mg tablet Take 1 tablet by mouth twice daily. nystatin (MYCOSTATIN) cream Apply to affected area twice daily as needed. MEDICATION, NON-DATABASE A therapist wheelchair mobility referral to document the patient's mobility and functional condition. diphenoxylate-atropine (LOMOTIL) 2.5-0.025 mg per tablet TAKE ONE TABLET BY MOUTH FOUR TIMES A DAY NEEDED Glucosamine-Chondroitin (OSTEO BI-FLEX) 250-200 mg tab Take by mouth. Contains Tumeric acetaminophen (TYLENOL 8 HOUR ORAL) Take by mouth as needed. triamcinolone acetonide (KENALOG) 0.1 % cream Apply 1 application to affected area three times daily as needed. Apply sparingly to area for rash/itching. lisdexamfetamine (VYVANSE) 30 mg capsule Take 1 capsule by mouth once daily for 30 days. diphenhydrAMINE (BENADRYL) 25 mg capsule Take 1 capsule by mouth every 6 hours as needed for itching/rash. metFORMIN (GLUCOPHAGE) 500 mg tablet Take 1 tablet by mouth daily with breakfast for 14 days, THEN 1 tablet twice daily with meals for 14 days. DULoxetine (CYMBALTA) 60 mg capsule Take 1 capsule by mouth once daily. Biotin 10,000 mcg cap Take by mouth. (Patient not taking: Reported on 03/19/2021 ) acyclovir (ZOVIRAX) 200 mg capsule Take 1 capsule by mouth every 4 hours while awake. No current facility-administered medications for this visit. ALLERGIES Allergen Reactions Penicillins Hives, Anaphylaxis, Swelling Other reaction(s): Rash Alyacen [Norethin-E* Intolerance Intolerance-mood change Amlodipine Other: See Comments, Intolerance Severe migraine Tape [Adhesive Tape* Rash REVIEW OF SYSTEMS: All other ROS: negative As noted in HPI PHYSICAL EXAMINATION: VIDEO EXAM: (if completed, performed via video enabled technology) No exam performed ASSESSMENT: (G47.33) MAGALY (obstructive sleep apnea) (primary encounter diagnosis) (E66.01) Morbid obesity (HCC) PLAN: [place] [facility] [place]. Is doing well with the bipap. Begin Adipex. Discussed possible adverse effects There are no Patient Instructions on file for this visit. Kodi Diamond APRN.CNP documented in this encounter [facility] 01-21-2022 Miscellaneous Notes The following approved medication requests have been transmitted electronically. Signed Prescriptions Disp Refills HYDROcodone-Acetaminophen (NORCO) 10-325 mg per tablet 90 tablet 0 Sig: Take 1 tablet by mouth every 8 hours as needed for pain. Do not start before March 26, 2022. MOUNA Class: C-II MARIANA: No HYDROcodone-Acetaminophen (NORCO) 10-325 mg per tablet 90 tablet 0 Sig: Take 1.5 tablets by mouth every 8 hours as needed for pain. Do not start before February 26, 2022. MOUNA Class: C-II MARIANA: No HYDROcodone-Acetaminophen (NORCO) 10-325 mg per tablet 90 tablet 0 Sig: Take 1.5 tablets by mouth twice daily as needed. Do not start before January 29, 2022. MOUNA Class: C-II MARIANA: No Lupe Segundo Ma The following approved medication requests have been transmitted electronically. Signed Prescriptions Disp Refills HYDROcodone-Acetaminophen (NORCO) 10-325 mg per tablet 90 tablet 0 Sig: Take 1 tablet by mouth every 8 hours as needed for pain. Do not start before March 26, 2022. MOUNA Class: C-II MARIANA: No HYDROcodone-Acetaminophen (NORCO) 10-325 mg per tablet 90 tablet 0 Sig: Take 1.5 tablets by mouth every 8 hours as needed for pain. Do not start before February 26, 2022. MOUNA Class: C-II MARIANA: No HYDROcodone-Acetaminophen (NORCO) 10-325 mg per tablet 90 tablet 0 Sig: Take 1.5 tablets by mouth twice daily as needed. Do not start before January 29, 2022. MOUNA Class: C-II MARIANA: No Kodi Diamond APRN.ALEXANDRU PDMP website checked and validated. All prescriptions have been APPROPRIATELY filled. No suspicious activity was identified. 01/21/2022 by Kodi Diamond CNP. Please see pt message. rx pended. Last refilled 01/02/2022 #90 0 refills Lupe Segundo Ma documented in this encounter [facility] 01-13-2022 Miscellaneous Notes Patient phones requesting refills as follows: Pending Prescriptions Disp Refills LISINOPRIL 20 MG-HYDROCHLOROTHIAZIDE 25 MG TABLET 90 tablet 3 Sig: Take 1 tablet by mouth once daily. MARIANA: No [facility]-11/04/21 Labs-07/24/21 NOV-none med filled 11/07/20 ends 11/05/21 Please review and advise. Alka Serrano LPN documented in this encounter [facility] 01-12-2022 Miscellaneous Notes Patient phones requesting refills as follows: Pending Prescriptions Disp Refills SPIRONOLACTONE 50 MG TABLET 30 tablet 0 Sig: Take 1 tablet by mouth once daily. MARIANA: No [facility]-11/04/21 Labs-07/24/21 NOV-none med filled 12/11/21 Please review and advise. Alka Serrano LPN documented in this encounter [facility] 11-20-2021 Miscellaneous Notes Rescheduled 03/03/2022 11-18-2021 ROSS Perez Patient is needing scheduled at [facility] for EGD. BMI 83.52 DX: Abdominal bloating [R14.0 (ICD-10-CM)]; Nausea [R11.0 (ICD-10-CM)]; Bloating [R14.0 (ICD-10-CM)]; Heartburn [R12 (ICD-10-CM)] Verbal and written instructions given. documented in this encounter [facility] 11-13-2021 Miscellaneous Notes Patient has been identified by name and date of : Yes Patient phones for refill(s): Pending Prescriptions Disp Refills DICYCLOMINE 10 MG CAPSULE 84 capsule 1 Sig: Take 1 capsule by mouth before meals and at bedtime. MARIANA: No Date of last office visit in primary care: [facility] 11/04/2021 No appointment scheduled Last 2 Encounter Wt Readings: Date: Wt: 11/05/2021 194 kg (427 lb 12.8 oz) 11/04/2021 194.6 kg (429 lb) Please advise. Thank you. EN Royal documented in this encounter [facility] 11-09-2021 Miscellaneous Notes Patient has been identified by name and date of : Yes Patient phones for refill(s): Pending Prescriptions Disp Refills SPIRONOLACTONE 50 MG TABLET 30 tablet 0 Sig: Take 1 tablet by mouth once daily. MARIANA: No Date of last office visit in primary care: [facility] 11/04/2021 No appointment scheduled Last 2 Encounter Wt Readings: Date: Wt: 11/05/2021 194 kg (427 lb 12.8 oz) 11/04/2021 194.6 kg (429 lb) Please advise. Thank you. EN Royal documented in this encounter [facility] 11-05-2021 History of Presen t illness Narrative Radiology Service Progress Note PATIENT NAME: Lizzy Seth DATE OF SERVICE: November 05, 2021 TIME: 12:10 PM PATIENT IDENTITY VERIFICATION COMPLETED USING TWO (2) IDENTIFIERS: Name and Date of confirmed by patient verbally. FALL SCREENING: Has the patient had 2 falls in the last year or 1 fall with injury or currently using an Ambulatory Assistive Device (Walker, Cane, Wheelchair, Crutches, etc.)? Yes, Patient High Risk for Falls What interventions were put in place to prevent falls during this visit? Offered Assistance with Transfers/Clothing and Instructed Patient to Remain Seated (Not on Exam Table) Until Exam PATIENT GENDER DATA: Female. status: : No status: NO. PATIENT RELEVANT IMPLANT DATA REVIEWED: Not Applicable RADIOLOGY DEPARTMENT: General X-ray: Exam(s) Completed: Spine X-Ray(s): Cervical AP / LAT / OBL PERIPHERAL IV DATA: Not applicable SIGNED BY: RT Cedrick(R) November 05, 2021 12:36 PM documented in this encounter [facility] 11-05-2021 Instructions Bernardo Gonzalez - 11/05/2021 11:19 AM EDT Images from the original note were not included. Powerstep Original Full length. Can purchase at [employer] here in [place], [employer] in [place] or [place]. Also can find in [employer] in [facility]. Powersteps can also be purchased online, starting around $25.00 If you have a metatarsal or dancer pad for your feet apply the pad directly to the insole so you can interchange between your shoes. Find a shoe with a removable insole and take this out and replace with your powerstep insole. Always bring powersteps with you when shopping for shoes so that you can make sure that everything fits well together What is Plantar Fasciitis? Plantar fasciitis is the most common cause of heel pain. The pain is caused by inflammation of the plantar fascia. If you strain your plantar fascia, it becomes weak, swollen and irritated (inflamed). The resulting pain may be isolated in the heel or may appear at different points on the bottom of the foot, from time to time; it may occur in one foot or both. Some think that plantar fasciitis pain is caused by irritation of nerves from tissue swelling or inflammation, but it is debatable. Plantar fasciitis is common in middle-aged people; it also occurs in younger people who are on their feet a lot, such as athletes or soldiers. The plantar fascia is a strong band of connective tissue that extends from the base of the toes, along the bottom of the foot, to the bottom of the heel (calcaneous bone); it acts like a bowstring to maintain the arch of the foot. What are heel spurs? The inflammatory reaction of the heel bone may produce spike-like projections of new bone, called heel spurs. The spurs sometimes show on X-rays. They neither cause the initial pain nor do they cause the initial problem. However, later, having to walk on spurs may cause sharp pain. What causes plantar fasciitis? Plantar fasciitis is caused by straining the ligament that supports your arch. Repeated strain can cause tiny tears in the ligament. These lead to pain and swelling. During walking, the plantar fascia experiences tension up to twice the body weight with each step. While this is normal, those who spend much time on their feet, such as nurses, telephone coin box collector/waiters, and mail carriers, often experience plantar fasciitis. Athletes involved in tennis or other racquet sports, race walking, jogging or running also show a higher incidence of plantar fasciitis than do those participating in other activities. Thus, it's clear that plantar fasciitis is predominantly an overuse injury. In fact, any activity that results in prolonged tension and stress on the plantar fascia may cause plantar fasciitis. It is possible that changes in footwear may play a role in causing plantar fasciitis, no matter what activity is occurring. Those who are overweight are prone to plantar fasciitis. This is true even for sedentary people who get little physical activity. Abnormalities of the foot and ankle joints may predispose some individuals to development of plantar fasciitis (specifically, over pronation of the subtalar joint). Contributing Factors * Flat feet * Toe running, hill running * Sudden weight increase * High-arched, rigid feet * Soft terrain, e.g. running on sand * Obesity * Pronated feet (rolled inward) * Sudden increase in activity * Family tendency * Poor shoe support * Worn out or poorly fitted shoes * Increasing age * Walking, standing or running for long periods of time, especially on hard surfaces. How is the Injury Treated? Rest Your Feet: Limit, or if possible, stop activities that are causing your heel pain. Try to avoid running or walking on hard surfaces, such as concrete. Use pain as your guide. If your foot is too painful, rest it. Ice: Ice the sore area for 30 to 60 minutes, several times a day, to reduce inflammation and relieve pain. Apply a plastic bag of crushed ice (or a bag of frozen peas) over a towel. Ice the sore area for 15 minutes after activity/exercise. Application of heat is not generally recommended, as heat expands the bone and connective tissue, perhaps exerting greater pressure on nerves and thereby increasing pain. If heat is used, follow it with ice. Medication: If your condition developed recently, anti-inflammatory/analgesic medication, combined with heel pads (see below) may be all that is necessary to relieve pain and to reduce inflammation. If no pain relief has occurred after 2-3 weeks, however, your doctor may inject either cortisone or local anesthetic directly into the tender area. Exercises: Do simple exercises, such as calf stretches and towel stretches (see below) several times a day, especially when you first get up in the morning. These can help your ligament become more flexible and strengthen the muscles that support your arch. Shoes: Poorly fitting shoes can cause plantar fasciitis. The best type of shoe to wear is a good walking or running shoe with good shock absorption and excellent arch support. You should choose the one that fits the best. [place] with your athletic shoes to find a pair that is comfortable and causes fewer symptoms. Put your shoes on as soon as you get out of bed; going barefoot or wearing slippers may make your pain worse. Good brands include (but are not limited to): New Balance, Asics, Saucony, SAS and Merrel s. Taping: Your doctor may tape your foot to maintain the arch. This takes some of the tension off the plantar fascia. Weight Loss: If your weight is putting extra stress on your feet, your doctor may encourage you to try a weight-loss program. Orthotics: An orthotic insole is a molded piece of rubber, plastic, or other material that you insert into your shoe. It corrects the alignment of your foot and cushions your foot from excessive pounding. These may be prescription or non-prescription. Prescription orthotics are custom-fitted and may fit better and control pain better, but are very expensive. Night Splints: A night splint holds the foot with the toes pointed up and the ankle at a 90-degree angle. This position applies a constant, gentle stretch to the plantar fascia. Corticosteroid Shots: Steroids may be injected into the tender area to reduce inflammation. REHAB Exercises to stretch the plantar fascia, the calf muscles, and the Achilles tendon. Tightness of the muscles of the calves may contribute to plantar fasciitis, so stretching the calf muscles is important to rehabilitation, as is stretching of the plantar fascia itself. Plantar fascial stretches Assisted Dorsiflexion/Plantar Fascia Stretch: Sit on the floor or ground, barefoot, with both legs outstretched. Use a towel or elastic band and wrap it around the ball (and not the toes) of the affected foot. Use the towel or elastic band to provide resistance to upward movement of the forefoot. Pull foot upward (toward your body) with the help of the elastic band or towel, and then return to the starting position. Ten repetitions are recommended. Perform the sequence at least three times a day. Alternate Plantar Fascia Stretch: Sit upright in a chair, barefoot. Place the ankle of the affected foot on your opposite knee. Using the same hand as the affected foot, reach across and grab the toes. Flex the ankle toward and pull the toes toward the [place]. To test the stretch, place the thumb of your hand on the bottom of the foot. You should be able to feel the cord-like plantar fascia, running the length of the foot. Hold the stretch for a count of 10, then relax. Repeat 10 times. Do the sequence at least three times a day. Achilles/Calf Stretches Strengthening the muscles of the calves may contribute to successful rehabilitation of plantar fasciitis, as well as prevent reoccurrence. The exercises below will help strengthen the calf muscles. Calf and Achilles Tendon Stretch (Gastrocnemius Stretch): Face a wall, standing an arm's length away. Place one foot back. Place both hands on the wall. Bend the elbows and knee of your forward leg, keeping the heel of the backward foot on the floor and keeping your body straight (aligned), until your forehead nearly touches the wall, or until significant stretch is felt in the muscles of the calf of the backward leg. Hold this position for 10 to 15 seconds. Extend elbows (straighten your arms and stand upright again) and maintain this position for 10 seconds. Repeat this cycle 15 to 20 times. Switch legs and repeat the exercise. documented in this encounter [facility] 11-05-2021 History of Presen t illness Narrative Consultation requested by Dr. Diamond for an opinion regarding left heel pain. My final recommendations will be communicated back to the requesting physician by way of shared Medical record or letter to requesting physician via US mail. Initial Podiatric Office Visit: Chief Complaint: This 46 year old female who presents with chief complaint:pain in left heel HPI Patient presents to clinic for evaluation of left foot. Patient has pain in the left heel for a couple of months. Patient feels there is something in the foot (ie foreign body) that is causing her pain. Patient tried scraping the foot to see if anything came out but nothing comes out. She states she has pain with standing and also has pain sitting. Patient is not currently taking anything fo rthe pain. PAIN EVALUATION 11/05/2021 1050 Pain Level: 5 Pain Location: Foot-Left Description: Throbbing;Itching Duration Amount of Time: 2 Duration Units: Months Frequency: Continuous Hemoglobin A1C (%) Date Value 07/24/2021 6.0 04/17/2020 5.7 09/07/2019 5.5 PCP: Kodi Diamond APRN.MILLWORK ESTIMATOR PAST MEDICAL HISTORY Diagnosis Date Abnormal EKG Anxiety has not worked: Niru Haywardexor Awareness under anesthesia Calculus of gallbladder without cholecystitis without obstruction Chronic back pain Chronic pain disorder Chronic pain syndrome 07/14/2020 Substance agreement signed 08/2019. Discitis Dorsalgia Edema Gout Herpes Hoarseness HTN (hypertension) Hypersomnia Leukocytosis Lumbago of lumbar region with sciatica Major depression, single episode Malignant neoplasm of left breast (HCC) 2017 Morbid obesity (HCC) MAGALY (obstructive sleep apnea) CPAP compliant Osteoarthritis Pancreatitis PCOS (polycystic ovarian syndrome) PONV (postoperative nausea and vomiting) Psoriasis RA (rheumatoid arthritis) (HCC) Right hip pain Current Outpatient Medications Medication Sig [START ON 11/06/2021] HYDROcodone-Acetaminophen (NORCO) 10-325 mg per tablet Take 1 to 1.5 tablets by mouth twice daily as needed. Do not start before November 06, 2021. [START ON 12/04/2021] HYDROcodone-Acetaminophen (NORCO) 10-325 mg per tablet Take 1 tablet by mouth every 8 hours as needed for pain. Do not start before December 04, 2021. [START ON 01/02/2022] HYDROcodone-Acetaminophen (NORCO) 10-325 mg per tablet Take 1.5 tablets by mouth every 8 hours as needed for pain. Do not start before January 02, 2022. nystatin-triamcinolone (MYCOLOG) ointment Apply sparingly to perineum twice daily for irritation/infection. spironolactone (ALDACTONE) 50 mg tablet Take 1 tablet by mouth once daily. dicyclomine (BENTYL) 10 mg capsule Take 1 capsule by mouth before meals and at bedtime. pantoprazole DR (PROTONIX) 40 mg tablet Take 1 tablet by mouth twice daily. nystatin (MYCOSTATIN) cream Apply to affected area twice daily as needed. MEDICATION, NON-DATABASE A therapist wheelchair mobility referral to document the patient's mobility and functional condition. diphenoxylate-atropine (LOMOTIL) 2.5-0.025 mg per tablet TAKE ONE TABLET BY MOUTH FOUR TIMES A DAY NEEDED Glucosamine-Chondroitin (OSTEO BI-FLEX) 250-200 mg tab Take by mouth. Contains Tumeric acetaminophen (TYLENOL 8 HOUR ORAL) Take by mouth as needed. triamcinolone acetonide (KENALOG) 0.1 % cream Apply 1 application to affected area three times daily as needed. Apply sparingly to area for rash/itching. diphenhydrAMINE (BENADRYL) 25 mg capsule Take 1 capsule by mouth every 6 hours as needed for itching/rash. lisinopril-hydroCHLOROthiazide (ZESTORETIC) 20-25 mg per tablet Take 1 tablet by mouth once daily. DULoxetine (CYMBALTA) 60 mg capsule Take 1 capsule by mouth once daily. acyclovir (ZOVIRAX) 200 mg capsule Take 1 capsule by mouth every 4 hours while awake. lisdexamfetamine (VYVANSE) 30 mg capsule Take 1 capsule by mouth once daily for 30 days. metFORMIN (GLUCOPHAGE) 500 mg tablet Take 1 tablet by mouth daily with breakfast for 14 days, THEN 1 tablet twice daily with meals for 14 days. Biotin 10,000 mcg cap Take by mouth. (Patient not taking: Reported on 03/19/2021 ) No current facility-administered medications for this visit. ALLERGIES Allergen Reactions Penicillins Hives, Anaphylaxis, Swelling Other reaction(s): Rash Alyacen [Norethin-E* Intolerance Intolerance-mood change Amlodipine Other: See Comments, Intolerance Severe migraine Tape [Adhesive Tape* Rash PAST SURGICAL HISTORY Procedure Laterality Date BREAST LUMPECTOMY HX Left 2012 2016 SECTION HX x 2 OFFICE LEEP 2003 PAST SURGICAL HISTORY OF 2013 EGD-dysphagia REMOVAL GALLBLADDER TUBAL LIGATION 2012 FAMILY HISTORY Problem Relation Age of Onset Breast Cancer Mother Schizophrenia Mother Thyroid Mother other (lymphoma) Mother other (htn) Mother Anxiety disorder Father Diabetes Father Stroke Father other (Other) Father vein defect-left leg amputated as a result Alcohol/Drug Sister other (htn) Sister Alcohol/Drug Sister other (Other) Brother 1/2 brother, has not seen since she was 7 other (healthy) Maternal Grandmother other (lung cancer) Maternal Grandfather Diabetes Paternal Grandmother Cervical Cancer Paternal Grandmother Colon Cancer Paternal Grandfather Social History Tobacco Use Smoking status: Former Smoker Packs/day: 1.00 Years: 31.00 Pack years: 31.00 Types: Cigarettes Quit date: 06/20/2020 Years since quittin.3 Smokeless tobacco: Never Used Tobacco comment: quit 06/19/20 Vaping Use Vaping Use: Former Substance Use Topics Alcohol use: Not Currently Comment: not for 15+ years Drug use: Never REVIEW OF SYSTEMS GENERAL: Negative for Malaise, significant weight loss, fever RESPIRATORY: Negative for cough, wheezing and shortness of breath CARDIOVASCULAR: Negative for chest pain, leg swelling and palpitations GI: Negative for abdominal discomfort, blood in stools or black stools and change in bowel habits : Negative for dysuria, frequency and incontinence MUSCULOSKELETAL: Negative for joint pain or swelling, back pain, and muscle pain. SKIN: Negative for lesions, rash, and itching. HEMATOLOGY/LYMPHOLOGY Negative for prolonged bleeding, bruising easily, and swollen nodes. ENDOCRINE: Negative for cold or heat intolerance, polyuria, polydipsia and goiter. NEURO: negative Physical Exam: Constitutional: Pt is a well developed 46 year old female who is alert, oriented and cooperative Eyes: Following during examination. No redness or drainage. Respiratory: RR normal and nonlabored. Even breathing. No evidence of distress or shortness of breath. Psychology: Patient is engaged during conversation. Normal affect and mood. Does not appear depressed or anxious during encounter. Vascular: Dorsalis pedis and posterior tibial pulses palpable as b/l Capillary Fill time < 5 seconds to digits 1-5 b/l Skin temperature warm to warm proximal to distal b/l Hair growth present to digits Neurological: intact light touch/epicritic sensation - tinel b/l intact protective sensation no significant neurological deficits Dermatological: Nails 1-5 b/l appear normal. Webspaces clean and dry 1-4 b/l. Skin appears dry and scaly. Left central heel has small black eschar. No foreign body detected Musculoskeletal/Orthopaedic: Patient has pain to palpation of central heel, left foot Foot type is neutral structurally AJ ROM is decreased with knee extended and flexed 1st MPJ is decreased when loaded and no pain or crepitus are noted with ROM. MTJ, STJ are full and free of pain and crepitus. +5/5 muscle strength dorsiflexion, plantarflexion, inversion, eversion b/l Radiographs:n/a ASSESSMENT: (M72.2) Plantar fasciitis of left foot (primary encounter diagnosis) (M79.672) Pain of left heel (M79.5) Foreign body (FB) in soft tissue PLAN: 1. History and physical examination performed. 2. Discussed left heel pain. Discussed possible left heel pain related to plantar fasciitis vs possible foreign body 3. For the possible plantar fasciitis, will treat with inserts, stretching, icing and nsaids. I will order plain film radiograph. If pain fails to improve, I would consider obtaining ultrasound to evaluate for foreign body 4. In order to perform a complete physical exam, limited shaving of left heel area was performed. This incidental service is integral to the evaluation and management visit in order to appropriately manage and treat the patient (for their complaint or for this visit). No foreign body detected Bernardo Gonzalez DPM Podiatry [address] [facility] [id number] Dept: [phone] Dept AMB ROOMING INTAKE FLOWSHEET DATA Risk Screening Do you have concerns about personal safety or safety in the home?: No Pain Pain Level: 5 Pain Location: Foot-Left Description: Throbbing, Itching Duration Amount of Time: 2 Duration Units: Months Frequency: Continuous Patient presents with: Left Foot - New, Pain, Nail Check intense itching in 1 port on left heel: intense intching in 1 spot on left heel documented in this encounter [facility] 11-05-2021 History of Presen t illness Narrative Lizzy is a 46 year old who presents for an annual gynecologic exam with menorrhagia. She is a new patient here. Presents with . Menses: cycles every 28 days and 9-12 days of flow. Very heavy where she is changing a tampon q 40 min. She reports it has been this heavy for about 1 year - Has had CBC, TSH, and pelvic US completed by PCP Contraception: tubal sterilization HPV vaccine: N/A Last Pap: normal HPV: negative History of abnormal pap: Yes - LEEP in 2003 Last mammogram: 2019 Sexually active: Yes Patient concerns for STD exposure: No. OB History No obstetric history on file. Talent Acquisition Assistant History LMP: 10/07/2021, Having periods Age at Menarche: Age at First : Age at Menopause: Talent Acquisition Assistant History Comments: Sexual Activity: Yes; Male Contraception: Tubal Ligation PAST MEDICAL HISTORY Diagnosis Date Abnormal EKG Anxiety has not worked: Cymbalta, Effexor Awareness under anesthesia Calculus of gallbladder without cholecystitis without obstruction Chronic back pain Chronic pain disorder Chronic pain syndrome 07/14/2020 Substance agreement signed 08/2019. Discitis Dorsalgia Edema Gout Herpes Hoarseness HTN (hypertension) Hypersomnia Leukocytosis Lumbago of lumbar region with sciatica Major depression, single episode Malignant neoplasm of left breast (HCC) 2017 Morbid obesity (HCC) MAGALY (obstructive sleep apnea) CPAP compliant Osteoarthritis Pancreatitis PCOS (polycystic ovarian syndrome) PONV (postoperative nausea and vomiting) Psoriasis RA (rheumatoid arthritis) (HCC) Right hip pain PAST SURGICAL HISTORY Procedure Laterality Date BREAST LUMPECTOMY HX Left 2012 2016 SECTION HX x 2 OFFICE LEEP 2003 PAST SURGICAL HISTORY OF 2013 EGD-dysphagia REMOVAL GALLBLADDER TUBAL LIGATION 2012 FAMILY HISTORY Problem Relation Age of Onset Breast Cancer Mother Schizophrenia Mother Thyroid Mother other (lymphoma) Mother other (htn) Mother Anxiety disorder Father Diabetes Father Stroke Father other (Other) Father vein defect-left leg amputated as a result Alcohol/Drug Sister other (htn) Sister Alcohol/Drug Sister other (Other) Brother 1/2 brother, has not seen since she was 7 other (healthy) Maternal Grandmother other (lung cancer) Maternal Grandfather Diabetes Paternal Grandmother Colon Cancer Paternal Grandfather SOCIAL HISTORY Social History Tobacco Use Smoking status: Former Smoker Packs/day: 1.00 Years: 31.00 Pack years: 31.00 Types: Cigarettes Quit date: 06/20/2020 Years since quittin.3 Smokeless tobacco: Never Used Tobacco comment: quit 06/19/20 Vaping Use Vaping Use: Former Substance Use Topics Alcohol use: Not Currently Comment: not for 15+ years Drug use: Never REVIEW OF SYSTEMS Abdomen: No abdominal pain, nausea, vomiting, diarrhea, or constipation. No bloating, early satiety, indigestion, or increased flatulence. Bladder: No dysuria, gross hematuria, urinary frequency, urinary urgency, or incontinence. Breast: No breast lumps, nipple d/c, overlying skin changes, redness or skin retraction. Has some pain near scar since lumpectomy that is unchanged and she has seen Dr. Dominguez for Allergies and current medication updated:Yes EXAM: BP 140/90 Wt 427 lb 12.8 oz (194.0kg) LMP 10/07/2021 GENERAL: pleasant, female in no apparent distress HEENT: Normocephalic, atraumatic, mucus membranes moist and no lesions NECK: full range of motion DERMATOLOGY: Normal, without lesions, non-icteric and non-hirsute CHEST: Normal inspiratory effort ABDOMEN: soft, non-tender and no masses PELVIC: external genitalia normal, normal Bartholin's glands, urethra, [place]'s glands, no vulvar lesions, good vaginal support, physiologic discharge present, normal appearing perineal body and perianal region, unable to visualize cervix BIMANUAL: deferred RECTOVAGINAL: deferred. NEURO: exam grossly non-focal EXTREMITIES: normal ASSESSMENT/PLAN: 1) Health maintenance: Pap done with HPV. Discussed blind pap as unable to visualize cervix. May need EUA and pap smear completed. Mammogram ordered. Nutrition, exercise and routine health maintenance exams reviewed. Menorrhagia: Had blood work and pelvic US with PCP. Discussed concern for hyperplasia given BMI 80, and need for endometrial sampling. Recommend progesterone IUD but will need to discuss with Dr. Dominguez first - will route chart to her. Unable to visualize cervix on exam given body habitus. Will likely need hysteroscopy, D&C, possible IUD placement. Will wait to hear from Dr. Dominguez and wait for pap smear results before scheduling as well. 2) Contraception: tubal sterilization. Contraceptive options reviewed and information provided. 3) STD screening: Declined STD check. 4) Follow up one year or sooner as needed Darlyn Warren DO documented in this encounter [facility] 11-04-2021 Instructions Kodi Diamond APRN.CNP - 11/04/2021 1:04 PM EDT Schedule your arm ultrasound. Schedule with Dr. Gonzalez-podiatry. [place]-3 months sent to [facility]. Have the xray of your neck completed. Have your mammogram completed. Schedule with gynecology. documented in this encounter [facility] 11-04-2021 History of Presen t illness Narrative Chief Complaint Patient presents with: Breast Problem: infection left breast, itching under arm Itching: left heel area Menstrual Problem: 2 weeks long beginning of October, heavy bleeding, changed 10x a daily Hair Loss Arm Pain: mostly lower arm x 2 months ago HPI Lizzy Seth is a 46 year old female who presents here today for Above Complaints. Today: Left breast-for a couple months, painful-ok with bra on, but otherwise if not supportive or rubs against anything-clothes or own skin-extremely burning pain. Peroxide, neosporin, Aquaphor, bandaid-none of these interventions helped. Left underarm-itching Left lower arm-constant pain, worse with movement, for a couple months. Is warm, swollen. Does lay on her left side when she sleeps. Left foot-get dried and cracked. Heel very dry, itches a lot. Is painful as well. Present for a couple of months. Started the keto diet intermittently for the past couple months. New bipap is working well. Neck and lower head has been bothering her. No injury. Does lay on her left side when she sleeps. Past medical history, appointments, medications, allergies reviewed. Previous Medical History PAST MEDICAL HISTORY Diagnosis Date Abnormal EKG Anxiety has not worked: Cymbalta, Effexor Awareness under anesthesia Calculus of gallbladder without cholecystitis without obstruction Chronic back pain Chronic pain disorder Chronic pain syndrome 07/14/2020 Substance agreement signed 08/2019. Discitis Dorsalgia Edema Gout Herpes Hoarseness HTN (hypertension) Hypersomnia Leukocytosis Lumbago of lumbar region with sciatica Major depression, single episode Malignant neoplasm of left breast (HCC) 2017 Morbid obesity (HCC) MAGALY (obstructive sleep apnea) CPAP compliant Osteoarthritis Pancreatitis PCOS (polycystic ovarian syndrome) PONV (postoperative nausea and vomiting) Psoriasis RA (rheumatoid arthritis) (HCC) Right hip pain Previous Surgical History PAST SURGICAL HISTORY Procedure Laterality Date BREAST LUMPECTOMY HX Left 2012 2016 SECTION HX x 2 OFFICE LEEP 2003 PAST SURGICAL HISTORY OF 2013 EGD-dysphagia REMOVAL GALLBLADDER TUBAL LIGATION 2012 Family History FAMILY HISTORY Problem Relation Age of Onset Breast Cancer Mother Schizophrenia Mother Thyroid Mother other (lymphoma) Mother other (htn) Mother Anxiety disorder Father Diabetes Father Stroke Father other (Other) Father vein defect-left leg amputated as a result Alcohol/Drug Sister other (htn) Sister Alcohol/Drug Sister other (Other) Brother 1/2 brother, has not seen since she was 7 other (healthy) Maternal Grandmother other (lung cancer) Maternal Grandfather Diabetes Paternal Grandmother Colon Cancer Paternal Grandfather Patient Allergies ALLERGIES Allergen Reactions Penicillins Hives, Anaphylaxis, Swelling Other reaction(s):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 depressive disorder) in remission (HCC) (F41.1) DUC (generalized anxiety disorder) (R41.840) Attention and concentration deficit (F17.211) Cigarette nicotine dependence in remission (F50.81) Binge eating disorder Current Outpatient Medications: - lisdexamfetamine ( (more content not included)... [facility] 12-29-2020 Note HNO ID: [id number] Author: Katarina Sy, PhD Service: ? Author Type: Psychologist Type: Progress Notes Filed: 12/29/2020 12:07 PM Note Text: Katarina Sy, Ph.D., Clinical Psychologist [facility] [address] [facility], [address] [place] [address] Bariatric Behavioral Services Progress Note December 29, 2020 BILLING CODE: Yossi CPT Code: 80171 Psychotherapy 53+ minutes Chief Complaint: Presurgical preparation focused on behavior change; stress management/coping; interpersonal interactions Time initiated session: 10:59am to 11:52am Date of First Session: 05/20/20 (initial evaluation) Session #: 4 This appointment was conducted remotely via video virtual visit due to outbreak of COVID-19. Patient agreed to distance mental health visit. Prior to initiating the appointment, patient identity was established using name and date of . Patient was encouraged to move to a quiet place free of distractions. Provided patient with number to call in case of disconnection ([phone]) and obtained alternate phone number from patient (n/a, patient requested call back on [phone]). She reported she was at the following location: home ([address] [place] [address] [address] [facility] [id number]) Patient identified the following plan to follow in case of emergency: Go to emergency room or call 911 Closest emergency room: [facility] Contact Information Primary Emergency Contact: Kit Seth [address]: [address] [place] [id number] [place] [address] Mobile Relation: Spouse Collateral Parties Present: none. Subjective: Patient reported that she has continued to focus on using effective stress management skills and setting appropriate boundaries with family members. She does report struggling with nutrition and exercise, although she reported consistently tracking her food, meeting protein and fluid goals, and avoiding concentrated sources of sugars and fats. She reported continued frustration with her weight, which she attributes to a combination of hormonal factors since stopping her control, as well as to the emotional eating she was engaging in a few months ago. Patient identified several significant motivations for continued focus on changes, including increased mobility and energy, being able to participate in activities with her family, and being able to see her children and grandchildren live long lives. Validated patient's emotions and experiences and engaged in reflective listening as she explored her concerns. Reinforced focus on changes and maintenance of changes, and engaged in motivational interviewing to identify factors supporting changes, as well as barriers to change. Patient did have an appointment with our program's NURSE RECEPTIONIST to monitor weight; however, this appointment was canceled by our clinic and patient had not yet called to reschedule. Encouraged patient to reschedule this appointment to continue with the program, as she has already completed many requirements for surgery. Did review MDT recommendations with patient, she reported she does not recall having been given them in the past. Overall, patient is continue to focus on changes and does maintain high motivation. She has been continuing to focus on making healthy choices and, while she is frustrated with the weight gain recently, she understands the importance of weight loss prior to surgery for safety and recovery. A follow-up appointment was set to check in on progress with changes and explore any barriers to change at that time. Patient mood is: Slightly anxious. Affect is: Mood congruent. Patient denies any suicidal or homicidal ideation, plan or intent at this time. Objective: Assessment: (F54) Psychological factors affecting medical condition (primary encounter diagnosis) (E66.01, Z68.45) Class 3 severe obesity with serious comorbidity and body mass index (BMI) greater than or equal to 70 in adult, unspecified obesity type (HCC) (F33.40) MDD (recurrent major depressive disorder) in remission (HCC) (F41.1) DUC (generalized anxiety disorder) (R41.840) Attention and concentration deficit (F17.211) Cigarette nicotine dependence in remission Current Outpatient Medications: - HYDROcodone-Acetaminophen (NORCO) 10-325 mg per tablet - liraglutide (VICTOZA) 0.6 mg/ 0.1 ml subcutaneous pen injector - metFORMIN (GLUCOPHAGE) 500 mg tablet - lisinopril-hydroCHLOROthiazide (ZESTORETIC) 20-25 mg per tablet - DULoxetine (CYMBALTA) 60 mg capsule - nystatin (MYCOSTATIN) cream - diphenoxylate-atropine (LOMOTIL) 2.5-0.025 mg per tablet - spironolactone (ALDACTONE) 50 mg tablet - Biotin 10,000 mcg cap - Clobetasol Propionate 0.05 % lotn - acyclovir (ZOVIRAX) 200 mg capsule Medication Changes: No change in medications Plan/Recommendations: Sections of plan initially (more content not included)... [facility] 11-17-2020 Note HNO ID: [id number] Author: Katarina Sy, PhD Service: ? Author Type: Psychologist Type: Progress Notes Filed: 11/17/2020 12:07 PM Note Text: Katarina Sy, Ph.D., Clinical Psychologist [facility] [address] [facility], [address] [place] [address] Bariatric Behavioral Services Progress Note November 17, 2020 BILLING CODE: Yossi CPT Code: 67830 Psychotherapy 53+ minutes Chief Complaint: Presurgical preparation focused on behavior change; stress management/coping; interpersonal boundaries Time initiated session: 11:00am to 11:55am Date of First Session: 05/20/20 (initial evaluation) Session #: 3 This appointment was conducted remotely via video virtual visit due to outbreak of COVID-19. Patient agreed to distance mental health visit. Prior to initiating the appointment, patient identity was established using name and date of . Patient was encouraged to move to a quiet place free of distractions. Provided patient with number to call in case of disconnection ([phone]) and obtained alternate phone number from patient (n/a, patient requested call back on [phone]). She reported she was at the following location: home ([address] [place] [address] [place] [address]) Patient identified the following plan to follow in case of emergency: Go to emergency room or call 911 Closest emergency room: [facility] Contact Information Primary Emergency Contact: Kit Seth Address: [address] [place], [place] [id number] [place] [address] OF [place] Mobile Relation: Spouse Collateral Parties Present: none. Subjective: Patient reported that she has been experiencing a high level of stress over the past few months related to interactions with family members. Patient reported that she has not previously struggled with emotional eating.; However, she has been struggling with using food for coping over the past few months due to this increased stress. Patient reported being frustrated by her recent weight gain at her meeting with the surgeon. She reported recommitting herself to making changes and has set appropriate boundaries with family members to avoid letting their emotions influence her mental and physical health. Patient also reported using effective coping skills, including playing video games with her family and painting decorations. Validated patient's emotions and experiences and engaged in reflective listening as she explored her concerns. Reinforced focus on changes, and engaged in motivational interviewing to identify factors supporting changes, as well as barriers to change. Explored with patient the importance of ongoing stress management and monitoring level of stress and eating patterns to identify emotional eating as it arises. Explored interpersonal skills for setting appropriate boundaries and enforcing boundaries with close family members. Overall, patient has been struggling with maintaining behavior changes related to a high level of stress. However, she reported focusing on both eliminating the source of the stress, as well as managing stress more effectively. Patient is confident she will be able to continue using effective stress management skills going forward. A follow-up appointment was set to check in on progress with goals and explore any barriers to change at that time. Patient mood is: Anxious. Affect is: Mood congruent. Patient denies any suicidal or homicidal ideation, plan or intent at this time. Objective: Assessment: (F54) Psychological factors affecting medical condition (primary encounter diagnosis) (E66.01, Z68.45) Class 3 severe obesity with serious comorbidity and body mass index (BMI) greater than or equal to 70 in adult, unspecified obesity type (HCC) (F33.40) MDD (recurrent major depressive disorder) in remission ([facility]) (F41.1) DUC (generalized anxiety disorder) (R41.840) Attention and concentration deficit (F17.211) Cigarette nicotine dependence in remission Current Outpatient Medications: - metFORMIN (GLUCOPHAGE) 500 mg tablet - lisinopril-hydroCHLOROthiazide (ZESTORETIC) 20-25 mg per tablet - liraglutide (VICTOZA) 0.6 mg/ 0.1 ml subcutaneous pen injector - HYDROcodone-Acetaminophen (NORCO) 10-325 mg per tablet - DULoxetine (CYMBALTA) 60 mg capsule - nystatin (MYCOSTATIN) cream - diphenoxylate-atropine (LOMOTIL) 2.5-0.025 mg per tablet - spironolactone (ALDACTONE) 50 mg tablet - Biotin 10,000 mcg cap - Clobetasol Propionate 0.05 % lotn - acyclovir (ZOVIRAX) 200 mg capsule Medication Changes: No change in medications Plan/Recommendations: Sections of plan initially documented at initial evaluation on 05/20/20. It was confirmed to be accurate at the current appointment. 1) REQUIREMENTS FOR COMPLETING BEHAVIORAL HEALTH EVALUATION: *Continue psychotropic medication management with PCP * (more content not included)... [facility] 11-13-2020 Note HNO ID: [id number] Author: Natasha Alfonso APRN.MILLWORK ESTIMATOR Service: ? Author Type: Nurse Practitioner Type: Progress Notes Filed: 11/13/2020 2:23 PM Note Text: DISTANCE HEALTH VISIT This Team Access Model visit is a virtual encounter. It required patient-provider interaction for the medical decision making as documented below. Consent was obtained to complete today's distance health visit. HPI: Lizzy Seth a 45 year old female for presents for medically supervised weight loss treatment of her obesity related co morbidities. This individual presents for month 8 of 6 required visits completed as a virtual telephone encounter Lizzy Seth weight calculation is unchanged since her last visit (she does not have access to a scale at home that goes >400lb so unable to obtain accurate weight). Patient came in last month to consent with her surgeon and presented with a 28 pound weight gain. She voiced that she had been struggling emotionally given stressors in her personal life. She admits that she was coping by eating unhealthy foods, especially sweets. We discussed her situation at MDT and it was determined that she would work with psychology and NURSE RECEPTIONIST's for an additional 2 to 3 months and must show progress with downward trajectory of weight loss. Since then, she has made some changes in her personal life that she feels will help manage her stress better. She is scheduled to see psychology next week. I did encourage her to establish with an individual therapist that she can see on a more frequent basis. Unfortunately, we do not have a current accurate weight since the patient scale does not go above 400 pounds. She states that she has made positive changes in her diet including reducing snacking, eliminating sweets, and increasing her activity as much as tolerated. She denies recent illnesses, recent hospitalizations, recent ED visits, reflux symptoms, abdominal pain, constipation, diarrhea. She denies swelling, shortness of breath, chest pain. She continues to use CPAP nightly HISTORY REVIEWED (electronic chart updated): - medical history - medications - allergies PAST MEDICAL HISTORY Diagnosis Date - Abnormal EKG - Anxiety has not worked: Cymbalta, Effexor - Awareness under anesthesia - Calculus of gallbladder without cholecystitis without obstruction - Chronic back pain - Chronic pain disorder - Chronic pain syndrome 07/14/2020 Substance agreement signed 08/2019. - Discitis - Dorsalgia - Edema - Gout - Herpes - Hoarseness - HTN (hypertension) - Hypersomnia - Leukocytosis - Lumbago of lumbar region with sciatica - Major depression, single episode - Malignant neoplasm of left breast (HCC) 2016 - Morbid obesity (HCC) - MAGALY (obstructive sleep apnea) CPAP compliant - Osteoarthritis - Pancreatitis - PCOS (polycystic ovarian syndrome) - PONV (postoperative nausea and vomiting) - Psoriasis - RA (rheumatoid arthritis) (HCC) - Right hip pain Social: Social History Tobacco Use - Smoking status: Former Smoker Packs/day: 1.00 Years: 31.00 Pack years: 31.00 Types: Cigarettes Quit date: 06/20/2020 Years since quittin.3 - Smokeless tobacco: Never Used - Tobacco comment: quit 06/19/20 Vaping Use - Vaping Use: current everyday user Substance Use Topics - Alcohol use: Not Currently Comment: not for 15+ years - Drug use: Never Medications: Current Outpatient Medications Medication Sig - lisinopril-hydroCHLOROthiazide (ZESTORETIC) 20-25 mg per tablet Take 1 tablet by mouth once daily. - liraglutide (VICTOZA) 0.6 mg/ 0.1 ml subcutaneous pen injector Inject 0.6 mg subcutaneously once daily for 7 days, THEN 1.2 mg once daily for 7 days, THEN 1.8 mg once daily for 14 days. Inject 0.6 mg daily via pen. - HYDROcodone-Acetaminophen (NORCO) 10-325 mg per tablet Take 1 to 1.5 tablets by mouth twice daily as needed. - DULoxetine (CYMBALTA) 60 mg capsule Take 1 capsule by mouth once daily. - nystatin (MYCOSTATIN) cream Apply to affected area twice daily as needed. - diphenoxylate-atropine (LOMOTIL) 2.5-0.025 mg per tablet Take 1 tablet by mouth four times daily as needed for up to 180 days. - spironolactone (ALDACTONE) 50 mg tablet Take 1 tablet by mouth once daily. - Biotin 10,000 mcg cap Take by mouth. - Clobetasol Propionate 0.05 % lotn Apply to affected area. - acyclovir (ZOVIRAX) 200 mg capsule Take 1 capsule by mouth every 4 hours while awake. No current facility-administered medications for this visit. REVIEW OF SYSTEMS General: No fatigue or fevers HEENT: Negative for frequent or significant headaches, No changes in hearing or vision, no nose bleeds or other nasal problems PAP Therapy: Using it nightly. GI:No nausea, vomiting, or diarrhea and No heartburn or reflux symptoms Muskuloskeletal: joint pain or swelling Skin: Negative for lesions, rash, and itching Psych: Negative for sleep distur (more content not included)... [facility] 10-16-2020 Note HNO ID: [id number] Author: Óscar Mohamud Service: ? Author Type: Physician Type: Progress Notes Filed: 10/16/2020 12:17 PM Note Text: Bariatric surgery clinic follow-up HPI: This is a 45 year old female who presents for follow up to possibly discuss a consent process and proceeding with surgery. Unfortunately today we did observe a 28 pound weight increase from her reported weight last month. She states she recently went to a cardiology office who also had a similar weight 2 hours. She thinks her scale is an accurate. She is very tearful today and I provided extensive counseling. Last year lost her mother and now her estranged father has stage IV cancer and has been putting her down from a weight perspective. She was very emotional discussing this and has not talked to a therapist. She is open to meeting with Dr. Sy. Otherwise also relates to some not great food choices and is now trying to refocus and exercise more. Has been stress eating. No nausea or vomiting. Taking her diuretic and no severe swelling to explain her weight increase. No change in respiratory or cardiac status. She did have a stress test which was negative and we are awaiting overall cardiac clearance. PAST MEDICAL HISTORY Diagnosis Date - Abnormal EKG - Anxiety has not worked: Christian Hayward - Awareness under anesthesia - Calculus of gallbladder without cholecystitis without obstruction - Chronic back pain - Chronic pain disorder - Chronic pain syndrome 07/14/2020 Substance agreement signed 08/2019. - Discitis - Dorsalgia - Edema - Gout - Herpes - Hoarseness - HTN (hypertension) - Hypersomnia - Leukocytosis - Lumbago of lumbar region with sciatica - Major depression, single episode - Malignant neoplasm of left breast (HCC) 2016 - Morbid obesity (HCC) - MAGALY (obstructive sleep apnea) CPAP compliant - Osteoarthritis - Pancreatitis - PCOS (polycystic ovarian syndrome) - PONV (postoperative nausea and vomiting) - Psoriasis - RA (rheumatoid arthritis) (HCC) - Right hip pain PAST SURGICAL HISTORY Procedure Laterality Date - BREAST LUMPECTOMY HX Left 2012 2016 - SECTION HX x 2 - OFFICE LEEP 2003 - PAST SURGICAL HISTORY OF 2013 EGD-dysphagia - REMOVAL GALLBLADDER - TUBAL LIGATION 2012 FAMILY HISTORY Problem Relation Age of Onset - Breast Cancer Mother - Schizophrenia Mother - Thyroid Mother - other (lymphoma) Mother - other (htn) Mother - Anxiety disorder Father - Diabetes Father - Stroke Father - other (Other) Father vein defect-left leg amputated as a result - Alcohol/Drug Sister - other (htn) Sister - Alcohol/Drug Sister - other (Other) Brother 1/2 brother, has not seen since she was 7 - other (healthy) Maternal Grandmother - other (lung cancer) Maternal Grandfather - Diabetes Paternal Grandmother - Colon Cancer Paternal Grandfather Social History Tobacco Use - Smoking status: Former Smoker Packs/day: 1.00 Years: 31.00 Pack years: 31.00 Types: Cigarettes Quit date: 06/20/2020 Years since quittin.3 - Smokeless tobacco: Never Used - Tobacco comment: quit 06/19/20 Vaping Use - Vaping Use: current everyday user Substance Use Topics - Alcohol use: Not Currently Comment: not for 15+ years - Drug use: Never Current Outpatient Medications Medication Sig - nystatin (MYCOSTATIN) cream Apply to affected area twice daily as needed. - HYDROcodone-Acetaminophen (NORCO) 10-325 mg per tablet Take 1 to 1.5 tablets by mouth twice daily as needed. - diphenoxylate-atropine (LOMOTIL) 2.5-0.025 mg per tablet Take 1 tablet by mouth four times daily as needed for up to 180 days. - spironolactone (ALDACTONE) 50 mg tablet Take 1 tablet by mouth once daily. - DULoxetine (CYMBALTA) 30 mg capsule Take 1 capsule by mouth once daily. - Biotin 10,000 mcg cap Take by mouth. - Clobetasol Propionate 0.05 % lotn Apply to affected area. - acyclovir (ZOVIRAX) 200 mg capsule Take 1 capsule by mouth every 4 hours while awake. No current facility-administered medications for this visit. ALLERGIES Allergen Reactions - Penicillins Hives, Anaphylaxis, Swelling Other reaction(s): Rash - Alyacen [Norethin-E* Intolerance Intolerance-mood change - Amlodipine Other: See Comments, Intolerance Severe migraine - Tape [Adhesive Tape* Rash REVIEW OF SYSTEMS: GENERAL: No weight loss, malaise or fevers GI: Negative for abdominal pain, nausea , vomiting, diarrhea, constipation and signs of jaundice Positive for none PHYSICAL EXAM: BP 132/76 Pulse 72 Ht 5' 1 (1.55m) Wt 409 lb 3.2 oz (185.6kg) LMP 05/02/2020 BMI 77.36 kg/(m2). GENERAL APPEARANCE: Well appearing, alert, in no acute distress, well-hydrated, well nourished.. Very tearful throughout the encounter Head and neck; normocephalic, no scleral icterus Respiratory; thin comfortably without accessory muscle usage, no audible cough or wheez (more content not included)... [facility] 10-16-2020 Note HNO ID: [id number] Author: Rachel Guillermo Cnp) ALEXANDRU Neville Service: ? Author Type: Nurse Practitioner Type: Progress Notes Filed: 10/16/2020 10:17 AM Note Text: Has met all of her preoperative consults and clearances. Was seen by cardiology for abnormal EKG, completed normal stress test, reporting cardiac clearance, we have sent a letter and are awaiting official clearance although anticipate given normal stress test. Will follow up and confirm cardiac risk ratification during VEE visit Rachel Neville APRN.ALEXANDRU [facility] 10-07-2020 Note HNO ID: [id number] Author: Rachel Neville CNP (Aprn Cnp) Service: ? Author Type: Nurse Practitioner Type: Progress Notes Filed: 10/07/2020 9:56 AM Note Text: Completed stress echocardiogram, and able to see the results in care everywhere which shows a normal stress test. Per the patient she is cleared by her special agent group insurance, we will get an official opinion from cardiology However given this, todays all clearances and consultations have been met, thus I placed her follow up with Dr. Mohamud to consent for planned bariatric procedure as well as request insurance authorization PST orders placed Rahcel Neville APRN.[facility] 10-02-2020 Note HNO ID: [id number] Author: Holli Fonseca Service: ? Author Type: ? Type: Progress Notes Filed: 10/02/2020 11:46 AM Note Text: Pre-operative 2 Week Liquid Diet Instructions--Visit conducted via [employer] (audio and visual) d/t COV[employer]TE 19 Lizzy Seth Pre-Op wt goal: 349# Tentative Surgery Date: TBD Pre-operative %BF: deferred Journal brought to appointment: encouraged keeping daily and meeting both protein and fluid goals 2 week VLCD instructions reviewed: Yes Encouraged pt to review education class materials: Yes Post-operative protein supplement reviewed: Yes ERAS protocol reviewed: Yes, will provide 2 Ensure Clear supplements during consent appt Discharge diet instructions reviewed: Yes, provided discharge full-liquid diet instructions and post-op food journal VLCD, ERAS, discharge diet and post-op vitamin schedule--via [employer] The patient meets NIH guidelines for weight loss surgery and has been thoroughly evaluated and educated on good dietary practices. Patient is capable of following these guidelines pre-and post-surgically. From nutrition standpoint, the patient is cleared for weight loss surgery (06/25/20). The setting was a shared nutrition appointment in which she was seen individually with group observers. Consent to be seen in a group setting was obtained virtually. Goals reviewed and outlined below. Goals - formal exercise 5x/week for 30 minutes, can break into 10 minute intervals (chair exercises, cardiovascular, HAS fit chair exercises on youtube)--can focus on upper body - review very low calorie diet, ERAS, discharge diet and post-op vitamin schedule - start to track protein and fluid intake in food journal--goal of 60g protein and 64oz of fluids per day - try sipping beverages between meals or sugar-free jell-o or sugar-free popsicles vs. grazing on frozen fruit Alexandra Ochoa RD, LD Total time in direct patient contact = 30 min. Greater than 50% of the time was spent in counseling and/or coordination of care. This note was generated using voice recognition technology and may contain grammatical errors. [facility] 09-24-2020 Note HNO ID: [id number] Author: Rachel Guillermo Cnp) ALEXANDRU Neville Service: ? Author Type: Nurse Practitioner Type: Progress Notes Filed: 10/07/2020 9:57 AM Note Text: DISTANCE HEALTH VISIT This Team Access Model visit is a virtual encounter. It required patient-provider interaction for the medical decision making as documented below. Consent was obtained to complete today's distance health visit. HPI: Lizzy Seth a 45 year old female for presents for medically supervised weight loss treatment of her obesity related co morbidities. This individual presents for month 6 of 6 required visits completed as a virtual telephone encounter Lizzy Seth weight calculation shows weight stable. Seeing RD next week. No significant changes to medical history, illnesses, hospitalizations. She has followed up with a special agent group insurance, I can view his office note in care everywhere. Recommending an echocardiogram, will provide clearance once the results are in. She is scheduled for next week. HISTORY REVIEWED (electronic chart updated): - medical history - medications - allergies - radiology: - tests: PAST MEDICAL HISTORY Diagnosis Date - Abnormal EKG - Anxiety has not worked: Cymbalta, Effexor - Awareness under anesthesia - Calculus of gallbladder without cholecystitis without obstruction - Chronic back pain - Chronic pain disorder - Chronic pain syndrome 07/14/2020 Substance agreement signed 08/2019. - Discitis - Dorsalgia - Edema - Gout - Herpes - Hoarseness - HTN (hypertension) - Hypersomnia - Leukocytosis - Lumbago of lumbar region with sciatica - Major depression, single episode - Malignant neoplasm of left breast (HCC) 2017 - Morbid obesity (HCC) - MAGALY (obstructive sleep apnea) CPAP compliant - Osteoarthritis - Pancreatitis - PCOS (polycystic ovarian syndrome) - PONV (postoperative nausea and vomiting) - Psoriasis - RA (rheumatoid arthritis) (HCC) - Right hip pain Social: Social History Tobacco Use - Smoking status: Former Smoker Packs/day: 1.00 Years: 31.00 Pack years: 31.00 Types: Cigarettes Quit date: 06/20/2020 Years since quittin.2 - Smokeless tobacco: Never Used - Tobacco comment: quit 06/19/20 Substance Use Topics - Alcohol use: Not Currently Comment: not for 15+ years - Drug use: Never Medications: Current Outpatient Medications Medication Sig - HYDROcodone-Acetaminophen (NORCO) 10-325 mg per tablet Take 1 to 1.5 tablets by mouth twice daily as needed. - HYDROcodone-Acetaminophen (NORCO) 10-325 mg per tablet Take 1 to 1.5 tablets by mouth twice daily as needed. - diphenoxylate-atropine (LOMOTIL) 2.5-0.025 mg per tablet Take 1 tablet by mouth four times daily as needed for up to 180 days. - spironolactone (ALDACTONE) 50 mg tablet Take 1 tablet by mouth once daily. - DULoxetine (CYMBALTA) 30 mg capsule Take 1 capsule by mouth once daily. - glycopyrrolate (ROBINUL) 1 mg tablet Take 1 tablet by mouth daily at bedtime. (Patient not taking: Reported on 08/08/2020 ) - nystatin (MYCOSTATIN) cream Apply to affected area twice daily as needed. - naproxen (NAPROSYN) 500 mg tablet TAKE 1 TABLET BY MOUTH TWICE DAILY . APPOINTMENT REQUIRED FOR FUTURE REFILLS - folic acid 1 mg tablet Take 1 mg by mouth once daily. - Biotin 10,000 mcg cap Take by mouth. - Clobetasol Propionate 0.05 % lotn Apply to affected area. - acyclovir (ZOVIRAX) 200 mg capsule Take 1 capsule by mouth every 4 hours while awake. No current facility-administered medications for this visit. REVIEW OF SYSTEMS General: No fatigue or fevers HEENT: Negative for frequent or significant headaches, No changes in hearing or vision, no nose bleeds or other nasal problems PAP Therapy: Using it nightly. GI:No nausea, vomiting, or diarrhea and No heartburn or reflux symptoms Muskuloskeletal: Negative for joint pain or swelling, back pain or muscle pain Skin: Negative for lesions, rash, and itching Psych: Negative for sleep disturbance, mood disorder and recent psychosocial stressors PHYSICAL EXAMINATION 09/24/20 1255 Weight: (!) 172.8 kg (381 lb) Height: 154.9 cm (5' 1 ) GENERAL APPEARANCE: Pleasant, interacts appropriately and in no apparent distress. Appropriately groomed, happy, smiling, and interactive SKIN: Skin of normal texture, temperature without rashes/lesions/ulcerations. LUNGS: unlabored on room air negative findings: normal respiratory rate no cough NEURO/PSYCH: Oriented to person, place, time; appropriate insight and judgement. Appropriate affect. Diagnostic Tests Reviewed for Today's Visit Most recent lab and imaging results The plan of treatment for Lizzy Seth is Further Work-up: Required visit:?12/14 EGD:?POSTOPERATIVE DIAGNOSIS: 1. Severe obesity. 2. Gastritis. Upper GI:?Small hiatal hernia RUQ US:?Done? Sleep Study:?Sleep apnea? CXR:Done 04/24 EKG:Done 04/24 - abnormal- referred to ca (more content not included)... [facility] 08-27-2020 Note HNO ID: [id number] Author: Rachel Guillermo Cnp) ALEXANDRU Neville Service: ? Author Type: Nurse Practitioner Type: Progress Notes Filed: 2020 2:09 PM Note Text: DISTANCE HEALTH VISIT This Team Access Model visit is a virtual encounter. It required patient-provider interaction for the medical decision making as documented below. Consent was obtained to complete today's distance health visit. HPI: Lizzy Seth a 44 year old female for presents for medically supervised weight loss treatment of her obesity related co morbidities. This individual presents for month 5 of 6 required visits completed as a virtual telephone encounter Lizzy Seth weight calculation shows a reduction Please see dietitian note for full review of diet and exercise counseling during medically supervised weight loss Reviewed results of upper GI Evidence of small hiatal hernia, she denies any significant acid reflux Did complete urine for nicotine, very mild elevations in nicotine and cotinine that is consistent with passive exposure. She does maintain her and uses nicotine-based products at home Originally referred to cardiology for previous EKG regarding old ischemic changes, she was scheduled in the beginning of August but was having car issues and had to cancel his appointment. HISTORY REVIEWED (electronic chart updated): - medical history - medications - allergies - radiology: - tests: PAST MEDICAL HISTORY Diagnosis Date - Abnormal EKG - Anxiety has not worked: CymbalNiru reevesexor - Awareness under anesthesia - Calculus of gallbladder without cholecystitis without obstruction - Chronic back pain - Chronic pain disorder - Chronic pain syndrome 07/14/2020 Substance agreement signed 08/2019. - Discitis - Dorsalgia - Edema - Gout - Herpes - Hoarseness - HTN (hypertension) - Hypersomnia - Leukocytosis - Lumbago of lumbar region with sciatica - Major depression, single episode - Malignant neoplasm of left breast (HCC) 2017 - Morbid obesity (HCC) - MAGALY (obstructive sleep apnea) CPAP compliant - Osteoarthritis - Pancreatitis - PCOS (polycystic ovarian syndrome) - PONV (postoperative nausea and vomiting) - Psoriasis - RA (rheumatoid arthritis) (HCC) - Right hip pain Social: Social History Tobacco Use - Smoking status: Former Smoker Packs/day: 1.00 Years: 31.00 Pack years: 31.00 Types: Cigarettes Quit date: 06/20/2020 Years since quittin.1 - Smokeless tobacco: Never Used - Tobacco comment: quit 06/19/20 Substance Use Topics - Alcohol use: Not Currently Comment: not for 15+ years - Drug use: Never Medications: Current Outpatient Medications Medication Sig - HYDROcodone-Acetaminophen (NORCO) 10-325 mg per tablet Take 1 to 1.5 tablets by mouth twice daily as needed. - diphenoxylate-atropine (LOMOTIL) 2.5-0.025 mg per tablet Take 1 tablet by mouth four times daily as needed for up to 180 days. - spironolactone (ALDACTONE) 50 mg tablet Take 1 tablet by mouth once daily. - DULoxetine (CYMBALTA) 30 mg capsule Take 1 capsule by mouth once daily. - nystatin (MYCOSTATIN) cream Apply to affected area twice daily as needed. - folic acid 1 mg tablet Take 1 mg by mouth once daily. - Biotin 10,000 mcg cap Take by mouth. - Clobetasol Propionate 0.05 % lotn Apply to affected area. - acyclovir (ZOVIRAX) 200 mg capsule Take 1 capsule by mouth every 4 hours while awake. - loratadine 10 mg cap Take 1 capsule by mouth once daily. - PIRMELLA 1-35 mg-mcg per tablet Take 1 tablet by mouth once daily. (Patient not taking: Reported on 08/08/2020 ) - glycopyrrolate (ROBINUL) 1 mg tablet Take 1 tablet by mouth daily at bedtime. (Patient not taking: Reported on 08/08/2020 ) - naproxen (NAPROSYN) 500 mg tablet TAKE 1 TABLET BY MOUTH TWICE DAILY . APPOINTMENT REQUIRED FOR FUTURE REFILLS - lisinopriL-hydrochlorothiazide (ZESTORETIC) 20-25 mg per tablet Take 1 tablet by mouth once daily. (Patient not taking: Reported on 08/27/2020 ) No current facility-administered medications for this visit. REVIEW OF SYSTEMS General: No fatigue or fevers HEENT: Negative for frequent or significant headaches, No changes in hearing or vision, no nose bleeds or other nasal problems PAP Therapy: Using it nightly. GI:No nausea, vomiting, or diarrhea Muskuloskeletal: Negative for joint pain or swelling, back pain or muscle pain Skin: Negative for lesions, rash, and itching Psych: Negative for sleep disturbance, mood disorder and recent psychosocial stressors PHYSICAL EXAMINATION Wt 172.8 kg (381 lb) BMI 71.99 kg/m2 Ht 154.9 cm (5' 1 ) BMI 71.99 kg/m2 GENERAL APPEARANCE: Pleasant, interacts appropriately and in no apparent distress. Appropriately groomed, happy, smiling, and interactive SKIN: Skin of normal texture, temperature without rashes/lesions/ulcerations. LUNGS: unlabored on room air negative findings: normal respiratory rate n (more content not included)... [facility] 08-27-2020 Note HNO ID: [id number] Author: Alexandra Ochoa Service: ? Author Type: Registered Dietitian Type: Progress Notes Filed: 2020 2:09 PM Note Text: Lizzy Seth--Visit conducted via telephone (audio w/o visual) d/t COVID 19 Month 5/6 Pre-Op weight goal: 349# Education Class: Patient will receive instruction regarding healthy food choices and eating behaviors identified as optimal when preparing for surgery, losing weight after surgery, and maintaining weight loss long-term. Patient will also receive instruction regarding the Bariatric Full Liquid diet following surgery and optimal post-operative high-protein supplement choices. Education class to be completed prior to surgery. Behaviors Accomplished: Visit # 5 Date: 08/25/2020 Weight: (!) 172.8 kg (381 lb) per pt report Weight goal met: No: pt presents with a 2# wt loss since last encounter. Currently 7# above initial wt and 32# above GW. Behaviors that helped/hindered weight loss: HELPED: hip injection 2 days ago, should be improving in the next few days. Keeping journal daily Eating 3 meals/one snack Choose healthy foods Daily multivitamin Drink between meals Sip beverages slowly Eat slowly,chew well No high fat/fast foods D/c'd caffeinated, carbonated beverages Exercise: formal exercise 4-5x/week of uppery body for around 10-12 minutes per interval--3 times per day Written information provided and reviewed: Healthy plate/menus Behavior Checklist Journal Tracking protein intake Tracking liquid intake Pt verbally reports maintaining a food journal daily. Upon review of 3 day recall, pt is meeting both protein and fluid goals. Consuming 77-86g protein per day of 60g daily protein goal and 64+ ounces of fluid per day by consuming 1, 64oz ranjana cup + decaf coffee. She has increased her exercise this month to now 30-36 minutes, 4-5 times per week--focusing on upper body. Goals: Goals - formal exercise 5x/week for 30 minutes, can break into 10 minute intervals (chair exercises, cardiovascular, HAS fit chair exercises on youtube)--can focus on upper body - start to track protein and fluid intake in food journal--goal of 60g protein and 64oz of fluids per day - try sipping beverages between meals or sugar-free jell-o or sugar-free popsicles vs. grazing on frozen fruit The patient meets NIH guidelines for weight loss surgery and has been thoroughly evaluated and educated on good dietary practices. Patient is capable of following these guidelines pre-and post-surgically. From nutrition standpoint, the patient is cleared for weight loss surgery (06/25/20). Total time in direct patient contact = 10 min. Greater than 50% of the time was spent in counseling and/or coordination of care. Alexandra Ochoa RD, LD This note was generated using voice recognition technology and may contain grammatical errors. [facility] 07-30-2020 Note HNO ID: [id number] Author: Rachel (Lopez Jasso) ALEXANDRU Neville Service: ? Author Type: Nurse Practitioner Type: Progress Notes Filed: 08/01/2020 2:12 PM Note Text: DISTANCE HEALTH VISIT This Team Access Model visit is a phone encounter. It required patient-provider interaction for the medical decision making as documented below. Consent was obtained to complete today's distance health visit. During the intake process of the encounter, another individual was noted to be connected to the Zoom call, this individual was not known to the patient. I did immediately end the virtual visit and transition to a telephone call with the patient's permission HPI: Lizzy Seth a 44 year old female for presents for medically supervised weight loss treatment of her obesity related co morbidities. This individual presents for month 5 of 6 required visits completed as a virtual telephone encounter Lizzy Seth weight calculation a stable weight, her home scale broke and reporting a weight during EGD Reviewed results of EGD POSTOPERATIVE DIAGNOSIS: 1. Severe obesity. 2. Gastritis. No evidence of H. Pylori Upper GI is pending and scheduled for Tuesday. In addition to blood work. She did have a previously completed EKG in June that was abnormal, she has not been seen by a special agent group insurance. Her primary care provider did review a stress test and cleared her for her laparoscopic cholecystectomy however stress test is over 1 year HISTORY REVIEWED (electronic chart updated): - medical history - medications - allergies - radiology: - tests: PAST MEDICAL HISTORY Diagnosis Date - Anxiety has not worked: Christian Hayward - Awareness under anesthesia - Calculus of gallbladder without cholecystitis without obstruction - Chronic back pain - Chronic pain disorder - Chronic pain syndrome 07/14/2020 Substance agreement signed 08/2019. - Discitis - Dorsalgia - Edema - Gout - Herpes - Hoarseness - HTN (hypertension) - Hypersomnia - Leukocytosis - Lumbago of lumbar region with sciatica - Major depression, single episode - Malignant neoplasm of left breast (HCC) 2016 - Morbid obesity (HCC) - MAGALY (obstructive sleep apnea) CPAP compliant - Osteoarthritis - Pancreatitis - PCOS (polycystic ovarian syndrome) - PONV (postoperative nausea and vomiting) - Psoriasis - RA (rheumatoid arthritis) (HCC) - Right hip pain Social: Social History Tobacco Use - Smoking status: Former Smoker Packs/day: 1.00 Years: 31.00 Pack years: 31.00 Types: Cigarettes Quit date: 06/20/2020 Years since quittin.1 - Smokeless tobacco: Never Used - Tobacco comment: quit 06/19/20 Substance Use Topics - Alcohol use: Not Currently Comment: not for 15+ years - Drug use: Never Medications: Current Outpatient Medications Medication Sig - HYDROcodone-Acetaminophen (NORCO) 10-325 mg per tablet Take 1 to 1.5 tablets by mouth twice daily as needed. - PIRMELLA 1-35 mg-mcg per tablet Take 1 tablet by mouth once daily. - spironolactone (ALDACTONE) 50 mg tablet Take 1 tablet by mouth once daily. - iv contrast (will be provided with radiology test) CT kidney wow Inject, intravenously, once for 1 dose.No IV access, insert saline lock prior to the beginning of sedation, infusion, injection of imaging exam. Discontinue saline lock post exam. If Pt. has a central line or IVAD, may access for administration according to line specific nursing protocol. Once exam is complete flush line and de-access according to line specific nursing protocol in the CT contrast administration guidelines link. - DULoxetine (CYMBALTA) 30 mg capsule Take 1 capsule by mouth once daily. - glycopyrrolate (ROBINUL) 1 mg tablet Take 1 tablet by mouth daily at bedtime. - nystatin (MYCOSTATIN) cream Apply to affected area twice daily as needed. - naproxen (NAPROSYN) 500 mg tablet TAKE 1 TABLET BY MOUTH TWICE DAILY . APPOINTMENT REQUIRED FOR FUTURE REFILLS - folic acid 1 mg tablet Take 1 mg by mouth once daily. - Biotin 10,000 mcg cap Take by mouth. - Clobetasol Propionate 0.05 % lotn Apply to affected area. - lisinopriL-hydrochlorothiazide (ZESTORETIC) 20-25 mg per tablet Take 1 tablet by mouth once daily. - acyclovir (ZOVIRAX) 200 mg capsule Take 1 capsule by mouth every 4 hours while awake. - loratadine 10 mg cap Take 1 capsule by mouth once daily. - diphenoxylate-atropine (LOMOTIL) 2.5-0.025 mg per tablet Take 1 tablet by mouth four times daily as needed for up to 30 days. - Clobetasol Propionate-Emolnt (TEMOVATE) 0.05 % crea Apply to affected area twice daily. (Patient not taking: Reported on 04/24/2020 ) No current facility-administered medications for this visit. REVIEW OF SYSTEMS General: No fatigue or fevers HEENT: Negative for frequent or significant headaches, No changes in hearing or vision, no nose bleeds or other nasal problems PAP Therapy: Using it nightly. GI:No nausea (more content not included)... [facility] 07-30-2020 Note HNO ID: [id number] Author: Alexandra Ochoa Service: ? Author Type: Registered Dietitian Type: Progress Notes Filed: 08/01/2020 2:12 PM Note Text: Lizzy Seth--Visit conducted via telephone (audio w/o visual) d/t COVID 19 Month 4/6 Pre-Op weight goal: 349# Education Class: Patient will receive instruction regarding healthy food choices and eating behaviors identified as optimal when preparing for surgery, losing weight after surgery, and maintaining weight loss long-term. Patient will also receive instruction regarding the Bariatric Full Liquid diet following surgery and optimal post-operative high-protein supplement choices. Education class to be completed prior to surgery. Behaviors Accomplished: Visit # 4 Date: 07/28/2020 Weight: (!) 173.7 kg (383 lb) per pt report Weight goal met: No: pt presents with a 6# wt increase since last encounter. Currently 9# above initial wt and 34# above GW. Behaviors that helped/hindered weight loss: HINDERED: quit smoking, starting to snack between meals (frozen mangos, strawberries, pineapples) and apples. Pt report no significant swelling in lower extremities. Eating 3 meals/one snack Choose healthy foods Daily multivitamin Drink between meals Eat slowly,chew well No high fat/fast foods D/c'd caffeinated, carbonated beverages Exercise: formal exercise 3x/week (R hip pain)--planning to review injections, 5-8 minute intervals for 2-3 intervals 24 hr recall: B: crack and egg (homemade) L: turkey, kait nicolette cheese D: 3oz salmon, 1 cup of brussels sprouts, 1/2 cup of brown rice S: oikos triple zero + 1+ cups of frozen cups F: 64oz ranjana cup + decaf coffee P: 74g Written information provided and reviewed: Healthy plate/menus Behavior Checklist Journal Tracking protein intake Tracking liquid intake Pt verbally reports maintaining a food journal daily. Upon review of 3-day recall, patient is meeting both protein and fluid goals. She is consuming anywhere from 74-85 g of protein per day of 60 g daily protein goal and 64+ ounces of fluid by consuming 1, 64 ounce ranjana cup daily. She does state quitting smoking since second week in June, therefore, has noticed increased snacking on apples and frozen fruit, commended on smoking cessation and encouraged replacing with fluids or sugar-free popsicles/sugar-free Jell-O. States hip pain increasing and is planning to meet with provider for potential injections, encourage increasing activity to 5 days a week for 30 minutes and intervals as tolerated, focusing on upper body as needed, goal of increasing heart rate to aid with wt loss. She is making high-protein choices with meals in appropriate portion sizes. Goals: Goals - formal exercise 5x/week for 30 minutes, can break into 10 minute intervals (chair exercises, cardiovascular, HAS fit chair exercises on youtube)--can focus on upper body - start to track protein and fluid intake in food journal--goal of 60g protein and 64oz of fluids per day - try sipping beverages between meals or sugar-free jell-o or sugar-free popsicles vs. grazing on frozen fruit The patient meets NIH guidelines for weight loss surgery and has been thoroughly evaluated and educated on good dietary practices. Patient is capable of following these guidelines pre-and post-surgically. From nutrition standpoint, the patient is cleared for weight loss surgery (06/25/20). Total time in direct patient contact = 17 min. Greater than 50% of the time was spent in counseling and/or coordination of care. Alexandra Ochoa RD, LD This note was generated using voice recognition technology and may contain grammatical errors. [facility] 07-21-2020 Note HNO ID: [id number] Author: Jose Antonio Randall Service: ? Author Type: Physician Type: Anesthesia Procedure Notes Filed: 07/21/2020 1:27 PM Note Text: ANESTHESIOLOGY PROCEDURE NOTE PIV General Information Staffing Anesthesiologist: Jose Antonio Randall Performed by: anesthesiologist Preparation Sterility Preparation: hand hygiene performed prior to procedure, surgical cap used, mask used, skin prep agent completely dried prior to procedure Site Prep: Chloraprep Procedure Details Indication: need for IV access Needle Size/Type: 22 gauge angiocath Orientation: Left Location: Hand SIGNATURE: Jose Antonio Randall MD PATIENT NAME: Lizzy Seth DATE: July 21, 2020 TIME: 1:26 PM CSN: [id number] [facility] 07-17-2020 Note HNO ID: [id number] Author: Katarina Sy Service: ? Author Type: Psychologist Type: Progress Notes Filed: 07/17/2020 3:46 PM Note Text: Katarina Sy, Ph.D., Clinical Psychologist [facility] [address] [facility], [address] [place] [address] [facility] Progress Note July 17, 2020 BILLING CODE: Yossi CPT Code: 02360 Psychotherapy 53+ minutes Chief Complaint: presurgical preparation focused on behavior change; stress management/coping Time initiated session: 1:00pm to 2:00pm Date of First Session: 05/20/20 (initial evaluation) Session #: 2 This appointment was conducted remotely via video virtual visit due to outbreak of COVID-19. Patient agreed to distance mental health visit. Prior to initiating the appointment, patient identity was established using name and date of . Patient was encouraged to move to a quiet place free of distractions. Provided patient with number to call in case of disconnection ([phone]) and obtained alternate phone number from patient (n/a, patient requested call back on [phone]). She reported she was at the following location: home ([address] [place] [id number]) Patient identified the following plan to follow in case of emergency: Go to emergency room or call 911 Closest emergency room: [facility] Contact Information Primary Emergency Contact: Kit Seth [address]: [address] [place], [place] [id number] [place] [address] Mobile Relation: Spouse Collateral Parties Present: none. Subjective: Patient reported that she has been focusing on making changes in line with recommendations and has made significant progress since the initial evaluation. Pt reported completely discontinuing all nicotine and caffeine and increasing exercise. She reported meeting protein and fluid goals and using support and coping skills to manage stress. Pt denied engaging in emotional eating, binge eating, graze eating, or night eating. Pt does report some ongoing stress related to relationships and her grandson's health; however, she reported managing stress effectively. Validated pt's emotions and experiences and engaged in reflective listening as she explored her concerns. Strongly reinforced significant behavior changes over the past few months and engaged in motivational interviewing to explore factors supporting change as well as barriers to change. Patient identified strong support and a desire to be more present for her family and improve her energy level as helpful; barriers were few and patient has been addressing them effectively. Overall, patient has made significant changes and maintains high motivation, strong support, and effective coping. No additional visits with psychology are required at this time; however, pt is welcome to return as needed/desired before or after surgery.Patient expressed a preference to schedule follow-up approximately 6-8 weeks post-surgery. Psychological clearance pending negative nicotine screen. Patient mood is: calm. Affect is: Mood congruent. Patient denies any suicidal or homicidal ideation, plan or intent at this time. Objective: Assessment: (F54) Psychological factors affecting medical condition (primary encounter diagnosis) (E66.01, Z68.45) Class 3 severe obesity with serious comorbidity and body mass index (BMI) greater than or equal to 70 in adult, unspecified obesity type (HCC) (F33.40) MDD (recurrent major depressive disorder) in remission (HCC) (F41.1) DUC (generalized anxiety disorder) (R41.840) Attention and concentration deficit (F17.211) Cigarette nicotine dependence in remission Current Outpatient Medications: - HYDROcodone-Acetaminophen (NORCO) 10-325 mg per tablet - PIRMELLA 1-35 mg-mcg per tablet - spironolactone (ALDACTONE) 50 mg tablet - iv contrast (will be provided with radiology test) - DULoxetine (CYMBALTA) 30 mg capsule - glycopyrrolate (ROBINUL) 1 mg tablet - nystatin (MYCOSTATIN) cream - naproxen (NAPROSYN) 500 mg tablet - folic acid 1 mg tablet - Biotin 10,000 mcg cap - Clobetasol Propionate 0.05 % lotn - lisinopriL-hydrochlorothiazide (ZESTORETIC) 20-25 mg per tablet - diphenoxylate-atropine (LOMOTIL) 2.5-0.025 mg per tablet - acyclovir (ZOVIRAX) 200 mg capsule - loratadine 10 mg cap - Clobetasol Propionate-Emolnt (TEMOVATE) 0.05 % crea Medication Changes: No change in medications Plan/Recommendations: Sections of plan initially documented at initial evaluation on 05/20/20. It was confirmed to be accurate at the current appointment. 1) REQUIREMENTS FOR COMPLETING BEHAVIORAL HEALTH EVALUATION: *Continue psychotropic medication management with PCP *Smoking cessation--MET; need nicotine screen *Additional requirements may arise in course of treatment. ? 2) The patient may rian (more content not included)... [facility] 06-25-2020 Note HNO ID: [id number] Author: Óscar Mohamud Service: ? Author Type: Physician Type: Progress Notes Filed: 06/26/2020 10:13 AM Note Text: BARIATRIC SURGERY CONSULTATION HISTORY AND PHYSICAL Date: June 25, 2020 Time: 10:13 AM Name: Lizzy Seth This Team Access Model encounter involved medical decision making outside of a scheduled office or virtual visit. Care included: Specialist discussion and Extensive chart review. Above patient consented for a virtual visit with audio and visual component due to the pandemic. She was at home and her and child were on the call. I was the only provider. This is for follow-up to discuss metabolic surgery as she continues to work through the bariatric program. Total time for the virtual visit was approximately 16 minutes. This is a 44 year old female with morbid obesity (Body mass index is 71.27 kg/m?.) who presents to clinic for consideration of bariatric surgery. She has suffered with weight problems most of her life. She has tried numerous weight loss programs in the past with minimal success. She would either lose minimal weight or would gain back any weight she did lose. She has numerous motivations for considering bariatric surgery including weight loss, control of obesity-related co-morbidities, quality of life improvement and overall longevity She is now around a month out from her laparoscopic cholecystectomy with me. She is doing very well and feels back to normal. Preoperative symptoms are gone. Overall her swelling is markedly improved since starting spironolactone. Denies frequent acid reflux but will get mild reflux if she eats spicy foods. She does not take medications. Does endorse meat like hamburger getting stuck at the back of the throat sometimes. No regurgitation. No melena or bright red blood per rectum. She had issues with chronic constipation in the setting of chronic narcotics but her bowel movements are more regular since her cholecystectomy. She is on board with sleeve gastrectomy as the first stage of a possible staged procedure. She is now quitting smoking along with her . PAST MEDICAL HISTORY: PAST MEDICAL HISTORY Diagnosis Date - Anxiety has not worked: Yesy Effexor - Awareness under anesthesia - Calculus of gallbladder without cholecystitis without obstruction - Chronic back pain - Chronic pain disorder - Discitis - Dorsalgia - Edema - Gout - Herpes - Hoarseness - HTN (hypertension) - Hypersomnia - Leukocytosis - Lumbago of lumbar region with sciatica - Major depression, single episode - Malignant neoplasm of left breast (HCC) 2017 - Morbid obesity (HCC) - MAGALY (obstructive sleep apnea) CPAP compliant - Osteoarthritis - Pancreatitis - PCOS (polycystic ovarian syndrome) - PONV (postoperative nausea and vomiting) - Psoriasis - RA (rheumatoid arthritis) (HCC) - Right hip pain PAST SURGICAL HISTORY: PAST SURGICAL HISTORY Procedure Laterality Date - BREAST LUMPECTOMY HX Left 2012 2016 - SECTION HX x 2 - OFFICE LEEP 2003 - REMOVAL GALLBLADDER - TUBAL LIGATION 2012 FAMILY HISTORY: FAMILY HISTORY Problem Relation Age of Onset - Breast Cancer Mother - Schizophrenia Mother - Thyroid Mother - other (lymphoma) Mother - other (htn) Mother - Anxiety disorder Father - Diabetes Father - Stroke Father - other (Other) Father vein defect-left leg amputated as a result - Alcohol/Drug Sister - other (htn) Sister - Alcohol/Drug Sister - other (Other) Brother 1/2 brother, has not seen since she was 7 - other (healthy) Maternal Grandmother - other (lung cancer) Maternal Grandfather - Diabetes Paternal Grandmother - Colon Cancer Paternal Grandfather SOCIAL HISTORY: Social History Tobacco Use - Smoking status: Current Every Day Smoker Packs/day: 1.00 Years: 31.00 Pack years: 31.00 - Smokeless tobacco: Never Used - Tobacco comment: trying to quit Substance Use Topics - Alcohol use: Not Currently Comment: not for 15+ years - Drug use: Never MEDICATIONS: Prior to Admission Medications: spironolactone (ALDACTONE) 50 mg tablet Take 1 tablet by mouth once daily. HYDROcodone-Acetaminophen (NORCO) 10-325 mg per tablet Take 1 to 1.5 tablets by mouth twice daily as needed. iv contrast (will be provided with radiology test) CT kidney wow Inject, intravenously, once for 1 dose.No IV access, insert saline lock prior to the beginning of sedation, infusion, injection of imaging exam. Discontinue saline lock post exam. If Pt. has a central line or IVAD, may access for administration according to line specific nursing protocol. Once exam is complete flush line and de-access according to line specific nursing protocol in the CT contrast administration guidelines link. DULoxetine (CYMBALTA) 30 mg capsule Take 1 capsule by mouth once daily. glycopyrrolate (ROBINUL) 1 mg tablet Take 1 tablet by mouth (more content not included)... [facility] 06-25-2020 Note HNO ID: [id number] Author: Natasha Guillermo Cnp) Naty Service: ? Author Type: Nurse Practitioner Type: Progress Notes Filed: 06/26/2020 10:13 AM Note Text: Lizzy Seth is a 44 year old female who presents today to be evaluated for bariatric surgery. Her PMH is significant for obesity, RA (daily naproxen), HTN (1 combo agent), anxiety, GERD (no medications), PCOS, osteoarthritis (chronic [place] use), breast CA (lumpectomy), MAGALY (uses CPAP). Her surgical history is significant for left breast lumpectomy, , LEEP, tubal ligation, cholecystectomy (with Dr. Mohamud on 05/20) During recent cholecystectomy with Dr. 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 She was seen by urology and they are recommending to monitor and follow up CT in 6 months. She recently went to PCP for LE edema, her lasix was d/c'd and she was started on aldactone. She recently moved to [place], she was previously in a bariatric program in [place] for 6 months. She is a current smoker. Further Work-up: Required visit: 10/14 EGD: Surgeon Upper GI: Surgeon LILLIAN US: Surgeon Sleep Study: Sleep apnea CXR:Done 04/24 EKG:Done 04/24 - abnormal- referred to cardio prior to rashaad H Pylori Surgeon Labs:pending, ordered today Nicotine use <12 months: Yes, will need nicotine screening before surgery Antiplatelet/anticoagulants: No Immunosuppressive therapy: No Estrogen therapy: No Evaluations Psychology: ongoing Nutrition: ongoing Education class: NEEDS Clearances: PCP, cardiac Risk Calculator: VTE Risk: TBD COVID-19 Risk TBD Post-op Medications: Extended Lovenox: TBD Actigall: Not needed, rashaad H2 william/PPI: Will need Tylenol: Will need Natasha Alfonso APRN.MILLWORK ESTIMATOR [facility] 06-25-2020 Note HNO ID: [id number] Author: Reva (Rd Ld) Dru Service: ? Author Type: Registered Dietitian Type: Progress Notes Filed: 06/26/2020 10:13 AM Note Text: Lizzy Seth--Visit conducted via phone call d/t CARLIE 19 Month 3/6 Pre-Op weight goal: 349# Education Class: Patient will receive instruction regarding healthy food choices and eating behaviors identified as optimal when preparing for surgery, losing weight after surgery, and maintaining weight loss long-term. Patient will also receive instruction regarding the Bariatric Full Liquid diet following surgery and optimal post-operative high-protein supplement choices. Education class to be completed prior to surgery. Behaviors Accomplished: Visit # 3 Date: 06/24/2020 Weight: (!) 171.1 kg (377 lb 3.2 oz) per pt reports Weight goal met: No pt has gained 2# since last encounter. Currently 3# above initial wt and 28# above GW. Behaviors that helped/hindered weight loss: Keeping journal daily Eating 3 meals/one snack Choose healthy foods Daily multivitamin No high fat/fast foods D/c'd caffeinated, carbonated beverages Exercise: cleared for exercise now--resistance bands 3x/week for 5-8 minute intervals, starting the [employer] fitness program 24 hr recall: B: protein cranberry oatmeal pack, decaf coffee with non-dairy creamer L: turkey on multigrain bread with 1 slice [place] cheese D: chicken breast with broccoli and beets S: small avocado with feta F: 98oz fluid, decaf coffee 12oz Written information provided and reviewed: Healthy plate/menus Behavior Checklist Journal Patient reports she has been continuing to keep a food journal daily and has been tracking both protein and fluid intake. Upon review of 3-day recall, patient appears to be meeting 60 g protein goal 2 out of 3 days and 64 ounce fluid goal 2 out of 3 days ranging between 50-67 g protein and 60-110 ounces of fluid. Patient states she has been consistent with consuming 3 meals daily and has been trying to include high-protein options with each meal. Also, commended patient on switching to all decaf coffee over the last month. Patient states she has been cleared for exercise after her cholecystectomy in early May therefore, has been trying to utilize resistance bands 3 times per week for 5-8-minute intervals, continue to encourage patient to increase formal exercise as tolerated. Goals: Goals - formal exercise 3-4x/week for 20 minutes, can break into 10 minute intervals (chair exercises, cardiovascular) - start to track protein and fluid intake in food journal--goal of 60g protein and 64oz of fluids per day The patient meets NIH guidelines for weight loss surgery and has been thoroughly evaluated and educated on good dietary practices. Patient is capable of following these guidelines pre-and post-surgically. From nutrition standpoint, the patient is cleared for weight loss surgery. Total time in direct patient contact = 20 min. Greater than 50% of the time was spent in counseling and/or coordination of care. Reva Gonsales RD,LD This note was generated using voice recognition technology and may contain grammatical errors. [facility] 06-12-2020 Note HNO ID: [id number] Author: Avelino Zabala Service: ? Author Type: Physician Type: Progress Notes Filed: 06/12/2020 4:44 PM Note Text: VIRTUAL VISIT PROGRESS NOTE This is a virtual visit using HIPAA compliant video platform. It required patient-provider interaction for the medical decision making as documented below. Lizzy Seth is a 44 year old female seen for AML., no h/o UTI's or gross hematuria Recently had lap rashaad and renal AML seen incidentally on CT, pt denies hematuria HISTORY REVIEWED (electronic chart updated): PAST MEDICAL HISTORY Diagnosis Date - Anxiety has not worked: Cymbalta, Effexor - Awareness under anesthesia - Calculus of gallbladder without cholecystitis without obstruction - Chronic back pain - Chronic pain disorder - Discitis - Dorsalgia - Edema - Gout - Herpes - Hoarseness - HTN (hypertension) - Hypersomnia - Leukocytosis - Lumbago of lumbar region with sciatica - Major depression, single episode - Malignant neoplasm of left breast (HCC) 2016 - Morbid obesity (HCC) - MAGALY (obstructive sleep apnea) CPAP compliant - Osteoarthritis - Pancreatitis - PCOS (polycystic ovarian syndrome) - PONV (postoperative nausea and vomiting) - Psoriasis - RA (rheumatoid arthritis) (HCC) - Right hip pain PAST SURGICAL HISTORY Procedure Laterality Date - BREAST LUMPECTOMY HX Left 2012 2016 - SECTION HX x 2 - OFFICE LEEP 2003 - TUBAL LIGATION 2012 FAMILY HISTORY Problem Relation Age of Onset - Breast Cancer Mother - Schizophrenia Mother - Thyroid Mother - other (lymphoma) Mother - other (htn) Mother - Anxiety disorder Father - Diabetes Father - Stroke Father - other (Other) Father vein defect-left leg amputated as a result - Alcohol/Drug Sister - other (htn) Sister - Alcohol/Drug Sister - other (Other) Brother 1/2 brother, has not seen since she was 7 - other (healthy) Maternal Grandmother - other (lung cancer) Maternal Grandfather - Diabetes Paternal Grandmother - Colon Cancer Paternal Grandfather Social History Tobacco Use - Smoking status: Current Every Day Smoker Packs/day: 1.00 Years: 31.00 Pack years: 31.00 - Smokeless tobacco: Never Used - Tobacco comment: trying to quit Substance Use Topics - Alcohol use: Not Currently Frequency: Never Binge frequency: Never Comment: not for 15+ years - Drug use: Never Current Outpatient Medications Medication Sig - furosemide (LASIX) 20 mg tablet Take 1 tablet by mouth once daily as needed. - HYDROcodone-Acetaminophen (NORCO) 10-325 mg per tablet Take 1 tablet by mouth twice daily as needed for up to 30 days. - DULoxetine (CYMBALTA) 30 mg capsule Take 1 capsule by mouth once daily. - glycopyrrolate (ROBINUL) 1 mg tablet Take 1 tablet by mouth daily at bedtime. - nystatin (MYCOSTATIN) cream Apply to affected area twice daily as needed. - naproxen (NAPROSYN) 500 mg tablet TAKE 1 TABLET BY MOUTH TWICE DAILY . APPOINTMENT REQUIRED FOR FUTURE REFILLS - PIRMELLA 1-35 mg-mcg per tablet Take 1 tablet by mouth once daily. - folic acid 1 mg tablet Take 1 mg by mouth once daily. - Biotin 10,000 mcg cap Take by mouth. - Clobetasol Propionate 0.05 % lotn Apply to affected area. - lisinopriL-hydrochlorothiazide (ZESTORETIC) 20-25 mg per tablet Take 1 tablet by mouth once daily. - diphenoxylate-atropine (LOMOTIL) 2.5-0.025 mg per tablet Take 1 tablet by mouth four times daily as needed for up to 30 days. - acyclovir (ZOVIRAX) 200 mg capsule Take 1 capsule by mouth every 4 hours while awake. - loratadine 10 mg cap Take 1 capsule by mouth once daily. - Clobetasol Propionate-Emolnt (TEMOVATE) 0.05 % crea Apply to affected area twice daily. (Patient not taking: Reported on 04/24/2020 ) No current facility-administered medications for this visit. ALLERGIES Allergen Reactions - Penicillins Hives, Anaphylaxis, Swelling Other reaction(s): Rash - Alyacen [Norethin-E* Intolerance Intolerance-mood change - Amlodipine Other: See Comments, Intolerance Severe migraine - Tape [Adhesive Tape* Rash REVIEW OF SYSTEMS: GENERAL: feeling well without fatigue, no recent change in weight PHYSICAL EXAMINATION: VIDEO EXAM: (if completed, performed via video enabled technology) GENERAL: alert and appropriate, in no distress, well-hydrated, well nourished and happy, smiling, interactive 03/31/2020 CT kidney mult right AML's PLAN: Renal AML- pt with mult fat containing masses largest 2.9cm, no other symptoms suggestive of TS, no gross hem and some chronic back pain but nothing acute - discussed risk of spontaneous hemorrhage (Wunderlichs syndrome) and increased risk of this in AML's > 5cm (4cm on CT) - since <4cm and asymptomatic can follow but given multiple lesions told her embolization is also an option. She wants to follow for now. Told her to go to ER if any gross hem or acute CVAT - repeat CT [address] (more content not included)... [facility] 06-12-2020 Note HNO ID: [id number] Author: Óscar Mohamud Service: ? Author Type: Physician Type: Progress Notes Filed: 06/12/2020 12:20 PM Note Text: General surgery clinic HPI: This is a 44 year old female who presents for follow up now 3 weeks out from her laparoscopic cholecystectomy for chronic cholecystitis. Pathology confirms chronic cholecystitis. Overall feels fairly well other than some pulling at the supraumbilical port site. She also complains of some right flank and back pain intermittently. Had some increased swelling and orthopnea after surgery and she is now on a diuretic. No vomiting. Moving her bowels. No melena or bright red blood per rectum. Her asked for a copy of a video of her surgery which I advised him we do not standardly do videos. They are now also requesting a full video of her eventual bariatric procedure. I did discuss with him the challenges with that but we can see what the policy is here and certainly record if possible. Patient herself said it was okay if we cannot provide a video. PAST MEDICAL HISTORY Diagnosis Date - Anxiety has not worked: Cymbalta, Effexor - Awareness under anesthesia - Calculus of gallbladder without cholecystitis without obstruction - Chronic back pain - Chronic pain disorder - Discitis - Dorsalgia - Edema - Gout - Herpes - Hoarseness - HTN (hypertension) - Hypersomnia - Leukocytosis - Lumbago of lumbar region with sciatica - Major depression, single episode - Malignant neoplasm of left breast (HCC) 2016 - Morbid obesity (HCC) - MAGALY (obstructive sleep apnea) CPAP compliant - Osteoarthritis - Pancreatitis - PCOS (polycystic ovarian syndrome) - PONV (postoperative nausea and vomiting) - Psoriasis - RA (rheumatoid arthritis) (HCC) - Right hip pain PAST SURGICAL HISTORY Procedure Laterality Date - BREAST LUMPECTOMY HX Left 2012 2016 - SECTION HX x 2 - OFFICE LEEP 2003 - TUBAL LIGATION 2012 FAMILY HISTORY Problem Relation Age of Onset - Breast Cancer Mother - Schizophrenia Mother - Thyroid Mother - other (lymphoma) Mother - other (htn) Mother - Anxiety disorder Father - Diabetes Father - Stroke Father - other (Other) Father vein defect-left leg amputated as a result - Alcohol/Drug Sister - other (htn) Sister - Alcohol/Drug Sister - other (Other) Brother 1/2 brother, has not seen since she was 7 - other (healthy) Maternal Grandmother - other (lung cancer) Maternal Grandfather - Diabetes Paternal Grandmother - Colon Cancer Paternal Grandfather Social History Tobacco Use - Smoking status: Current Every Day Smoker Packs/day: 1.00 Years: 31.00 Pack years: 31.00 - Smokeless tobacco: Never Used - Tobacco comment: trying to quit Substance Use Topics - Alcohol use: Not Currently Frequency: Never Binge frequency: Never Comment: not for 15+ years - Drug use: Never Current Outpatient Medications Medication Sig - furosemide (LASIX) 20 mg tablet Take 1 tablet by mouth once daily as needed. - HYDROcodone-Acetaminophen (NORCO) 10-325 mg per tablet Take 1 tablet by mouth twice daily as needed for up to 30 days. - DULoxetine (CYMBALTA) 30 mg capsule Take 1 capsule by mouth once daily. - glycopyrrolate (ROBINUL) 1 mg tablet Take 1 tablet by mouth daily at bedtime. - nystatin (MYCOSTATIN) cream Apply to affected area twice daily as needed. - naproxen (NAPROSYN) 500 mg tablet TAKE 1 TABLET BY MOUTH TWICE DAILY . APPOINTMENT REQUIRED FOR FUTURE REFILLS - PIRMELLA 1-35 mg-mcg per tablet Take 1 tablet by mouth once daily. - Clobetasol Propionate 0.05 % lotn Apply to affected area. - lisinopriL-hydrochlorothiazide (ZESTORETIC) 20-25 mg per tablet Take 1 tablet by mouth once daily. - acyclovir (ZOVIRAX) 200 mg capsule Take 1 capsule by mouth every 4 hours while awake. - loratadine 10 mg cap Take 1 capsule by mouth once daily. - folic acid 1 mg tablet Take 1 mg by mouth once daily. - Biotin 10,000 mcg cap Take by mouth. - diphenoxylate-atropine (LOMOTIL) 2.5-0.025 mg per tablet Take 1 tablet by mouth four times daily as needed for up to 30 days. - Clobetasol Propionate-Emolnt (TEMOVATE) 0.05 % crea Apply to affected area twice daily. (Patient not taking: Reported on 04/24/2020 ) No current facility-administered medications for this visit. ALLERGIES Allergen Reactions - Penicillins Hives, Anaphylaxis, Swelling Other reaction(s): Rash - Alyacen [Norethin-E* Intolerance Intolerance-mood change - Amlodipine Other: See Comments, Intolerance Severe migraine - Tape [Adhesive Tape* Rash PHYSICAL EXAM: BP 122/84 Pulse 87 Ht 5' 1 (1.55m) Wt 381 lb 3.2 oz (172.9kg) LMP 05/02/2020 BMI 72.06 kg/(m2). GENERAL APPEARANCE: Well appearing, alert, in no acute distress, well-hydrated, well nourished.. No jaundice or scleral icterus ABDOMEN: Abdomen soft, non-tender. Visions healing nicely. No cellulitis or abscess. No (more content not included)... [facility] 06-09-2020 Note HNO ID: [id number] Author: Alexandra Ochoa Service: ? Author Type: Registered Dietitian Type: Progress Notes Filed: 06/09/2020 5:37 PM Note Text: Lizzy Seth-visit conducted virtually d/t COVID-19 Month 2/6 Pre-Op weight goal: 349# Education Class: Patient will receive instruction regarding healthy food choices and eating behaviors identified as optimal when preparing for surgery, losing weight after surgery, and maintaining weight loss long-term. Patient will also receive instruction regarding the Bariatric Full Liquid diet following surgery and optimal post-operative high-protein supplement choices. Education class to be completed prior to surgery. Behaviors Accomplished: Visit # 2 Date: 06/09/2020 Weight: 375# per pt report Weight goal met: No: pt presents with a 1# wt increase since last encounter. Currently 1# above initial wt and 26# above GW. Behaviors that helped/hindered weight loss: HINDERED: pt does report having fluid, especially in lower extremities--just added lasix--started a few days ago. Eating 3 meals/one snack Daily multivitamin Exercise: formal exercise before surgery--resistance bands--arms/legs w/ jumping jacks--5-8 minutes 2x/week, none since surgery -coffee (regular)--was previously drinking 6-7 glasses per day, down to 2 per day -1x every 2-3 months of dining out meals 24 hr recall: B: 2 eggs with multigrain toast L: tomatoes, lettuce and feta cheese and balsamic, 4-6 mini turkey sausage D: piece of baked chicken breast or piece of baked salmon (weighing out 3oz) w/ side of vegetables, 1/2 sweet potato S: oikos triple zero F: 2, 48oz RANJANA cups of fluid Written information provided and reviewed: Healthy plate/menus Behavior Checklist Journal Pt verbally reports maintaining a food journal. Pt underwent cholecystectomy early May. Does report some initial nausea which has subsided, her diet is now back to baseline. Has tried protein shakes--has tried equate 30g protein shakes. Drinking 2, 48oz RANJANA cups of fluid per day. Demonstrated how to track both protein and fluid intake--referenced front page of food journal, also considering [employer] vee. Will review protein/fluid calculations at next encounter. Commended on decreasing caffeine intake--encouraged to further reduce per goals below and will plan on discontinuing at next encounter. Encouraged increasing exercise once cleared per goals below. Goals: Goals - formal exercise 3-4x/week for 20 minutes, can break into 10 minute intervals (chair exercises, cardiovascular) - limit to 1 cup regular coffee in the morning, 1 cup decaf in the evening - start to track protein and fluid intake in food journal--goal of 60g protein and 64oz of fluids per day PLAN: follow up with surgeon to complete additional clearances needed before surgery as month 3 of 6 months of supervised wt loss. The patient meets NIH guidelines for weight loss surgery and has been thoroughly evaluated and educated on good dietary practices. Patient is capable of following these guidelines pre-and post-surgically. From nutrition standpoint, the has partially met nutrition clearance and will need to demonstrate increasing formal exercise, eliminating all caffeine and demonstrate meeting protein/fluid goals to receive nutrition clearance. Alexandra Ochoa RD, LD Total time in direct patient contact = 15 minutes. Greater than 50% of the time was spent in counseling and/or coordination of care. This note was generated using voice recognition technology and may contain grammatical errors. [facility] 06-09-2020 Note Education (AGGENS4) LIZZY SETH ([id number]) 1975 F Date Time Provider Department 06/09/20 4:00 PM ALEXANDRA OCHOA (LILY) AGGENS4 Reason for Visit: Obesity [577] Hypertension [168] Progress Notes: Alexandra Ochoa RD, LD 06/09/2020 5:37 PM Signed Lizzy Seth-visit conducted virtually d/t COVID-19 Month 2/6 Pre-Op weight goal: 349# Education Class: Patient will receive instruction regarding healthy food choices and eating behaviors identified as optimal when preparing for surgery, losing weight after surgery, and maintaining weight loss long-term. Patient will also receive instruction regarding the Bariatric Full Liquid diet following surgery and optimal post-operative high-protein supplement choices. Education class to be completed prior to surgery. Behaviors Accomplished: Visit # 2 Date: 06/09/2020 Weight: 375# per pt report Weight goal met: No: pt presents with a 1# wt increase since last encounter. Currently 1# above initial wt and 26# above GW. Behaviors that helped/hindered weight loss: HINDERED: pt does report having fluid, especially in lower extremities--just added lasix--started a few days ago. Eating 3 meals/one snack Daily multivitamin Exercise: formal exercise before surgery--resistance bands--arms/legs w/ jumping jacks--5-8 minutes 2x/week, none since surgery -coffee (regular)--was previously drinking 6-7 glasses per day, down to 2 per day -1x every 2-3 months of dining out meals 24 hr recall: B: 2 eggs with multigrain toast L: tomatoes, lettuce and feta cheese and balsamic, 4-6 mini turkey sausage D: piece of baked chicken breast or piece of baked salmon (weighing out 3oz) w/ side of vegetables, 1/2 sweet potato S: oikos triple zero F: 2, 48oz RANJANA cups of fluid Written information provided and reviewed: Healthy plate/menus Behavior Checklist Journal Pt verbally reports maintaining a food journal. Pt underwent cholecystectomy early May. Does report some initial nausea which has subsided, her diet is now back to baseline. Has tried protein shakes--has tried equate 30g protein shakes. Drinking 2, 48oz RANJANA cups of fluid per day. Demonstrated how to track both protein and fluid intake--referenced front page of food journal, also considering baritastic vee. Will review protein/fluid calculations at next encounter. Commended on decreasing caffeine intake--encouraged to further reduce per goals below and will plan on discontinuing at next encounter. Encouraged increasing exercise once cleared per goals below. Goals: Goals - formal exercise 3-4x/week for 20 minutes, can break into 10 minute intervals (chair exercises, cardiovascular) - limit to 1 cup regular coffee in the morning, 1 cup decaf in the evening - start to track protein and fluid intake in food journal--goal of 60g protein and 64oz of fluids per day PLAN: follow up with surgeon to complete additional clearances needed before surgery as month 3 of 6 months of supervised wt loss. The patient meets NIH guidelines for weight loss surgery and has been thoroughly evaluated and educated on good dietary practices. Patient is capable of following these guidelines pre-and post-surgically. From nutrition standpoint, the has partially met nutrition clearance and will need to demonstrate increasing formal exercise, eliminating all caffeine and demonstrate meeting protein/fluid goals to receive nutrition clearance. Alexandra Ochoa, LILY, LD Total time in direct patient contact = 15 minutes. Greater than 50% of the time was spent in counseling and/or coordination of care. This note was generated using voice recognition technology and may contain grammatical errors. Visit Diagnosis:Dietary counseling and surveillance [Z71.3] During your visit today, we recorded the following information about you: Allergies As of Date: 06/09/2020 Noted Allergy Reaction PENICILLINS 06/06/2011 4 - Hives 10 - Anaphylaxis 7 - Swelling Comments: Other reaction(s): Rash ALYACEN (NORETHIN-E.ESTRADIOL TRI*04/18/2020 5 - Intolerance Comments: Intolerance-mood change AMLODIPINE 11/02/2018 14 - Other: See Comments 5 - Intolerance Comments: Severe migraine TAPE (ADHESIVE TAPE (ROSINS)) 11/13/2016 2 - Rash Date Reviewed: 05/20/2020 Reviewed by: Raven PostRn) ARABELLA [place] - Fully Assessed Prescriptions as of 06/09/2020 Sig: FUROSEMIDE 20 MG TABLET Take 1 tablet by mouth once d* HYDROCODONE 10 MG-ACETAMINOPH* Take 1 tablet by mouth twice * DULOXETINE 30 MG CAPSULE,NOE* Take 1 capsule by mouth once * GLYCOPYRROLATE 1 MG TABLET Take 1 tablet by mouth daily * NYSTATIN 100,000 UNIT/GRAM TO* Apply to affected area twice * NAPROXEN 500 MG TABLET TAKE 1 TABLET BY MOUTH TWICE * PIRMELLA 1 MG-35 MCG TABLET Take 1 tablet by mouth once d* FOLIC ACID 1 MG TABLET Take 1 mg by mouth once daily. BI (more content not included)... [facility] 05-20-2020 Note HNO ID: [id number] Author: Roni (Rn) ARABELLA Henriquez Service: ? Author Type: Registered Nurse Type: Nursing Progress Note Filed: 05/20/2020 9:13 PM Note Text: Pt's script was not signed, it was by Dr Veronica at 2108 and RN ran it out to pt [facility] 05-20-2020 Note HNO ID: [id number] Author: Nancy (C[employer] Installer Pv) Chioma Service: ? Author Type: Nurse Freight Coordinator Type: Anesthesia Procedure Notes Filed: 05/20/2020 5:25 PM Note Text: ANESTHESIOLOGY PROCEDURE NOTE Airway General Information Procedure Start Time/Medication Administration: 05/20/2020 4:18 PM Patient location during procedure: OR Consent Obtained: Yes Patient identity confirmed: arm band and patient sedated or unresponsive Staffing Anesthesiologist: Carlos A Raygoza Performed by: anesthesiologist Indications and Patient Condition Preoxygenated: yes Patient position: sniffing Manual In-Line Stabilization: No Difficult Mask: No Indications for airway management: anesthesia anesthesia circuit Method: asleep Cricoid Pressure: No Airway Accessory: oral airway Final Airway Details Final airway type: endotracheal airway Final Endotracheal Airway: ETT Cuffed: yes Successful intubation technique: direct laryngoscopy Endotracheal tube insertion site: oral Blade: Gavino Blade size: #4 ETT size (mm): 7.0 Measured from: lips Measurement (cm): 22 Placement verified by: chest auscultation Cormack-Lehane Classification: grade IIa - partial view of glottis Number of attempts at approach: 1 Airway not difficult SIGNATURE: Nancy Bedolla APRN.CRNA PATIENT NAME: Lizzy Seth DATE: May 20, 2020 TIME: 5:23 PM CSN: [id number] [facility] 05-20-2020 Note HNO ID: [id number] Author: Nancy Bedolla (Aprn Crna) Service: ? Author Type: Nurse Freight Coordinator Type: Anesthesia Procedure Notes Filed: 05/20/2020 4:51 PM Note Text: ANESTHESIOLOGY PROCEDURE NOTE Gastric Tube General Information Procedure Start Time/Medication Administration: 05/20/2020 4:18 PM Patient location during procedure: OR Patient identity confirmed: arm band Indication: gastric decompression Staffing Anesthesiologist: Carlos A Raygoza NETWORK PROJECT MANAGER: Nancy Bedolla (Aprn Crna) Performed by: SHLOMO Procedure Details Type: Orogastric tube Cortrak monitor used: No Size: 18 Fr cm Distance Advanced: 45 cm Successful Placement: yes Post-Procedure Details SIGNATURE: Nancy Bedolla APRN.CRNA PATIENT NAME: Lizzy Seth DATE: May 20, 2020 TIME: 4:49 PM CSN: [id number] [facility] 05-20-2020 Note HNO ID: [id number] Author: Katarina Sy Service: ? Author Type: Psychologist Type: Progress Notes Filed: 05/20/2020 10:00 AM Note Text: Katarina Sy, Ph.D., Clinical Psychologist [facility] [address] [facility], [address] [place] [id number] BAR[facility]AT[facility] SUR[facility] EVALUATION DATE OF SERVICE: May 20, 2020 TIME OF SERVICE: 8:00am to 9:36am [facility]: [facility] CPT CODE: 50045 Psychiatric diagnostic evaluation BILLING CODE: Yossi CHIEF COMPLAINT: Pre-surgical psychological evaluation DATE OF FIRST SERVICE THIS CYCLE: May 20, 2020 SESSION #: 1 This appointment was conducted remotely via video virtual visit due to outbreak of COVID-19. Prior to initiating the appointment, patient identity was established using name and date of . Patient was encouraged to move to a quiet place free of distractions. Provided patient with number to call in case of disconnection ([phone]) and obtained alternate phone number from patient (n/a, patient requested call back on [phone]). She reported she was at the following location: home ([address] [place] [address] [address] [facility]) Patient identified the following plan to follow in case of emergency: Go to emergency room or call 911 Closest emergency room: [facility] Contact Information Primary Emergency Contact: Kit Seth Address: [address] [place] [address] Mobile Relation: Spouse Patient agreed to distance mental health visit. The patient signed the Informed Consent for Psychological Evaluation AND Care Form, and the behavioral health care insurance benefits, fees for service, emergency procedures, and the limits of confidentiality that may pertain with any given case were discussed with the patient. Discussed additional risks that may apply to telepsychology and steps that are taken to minimize risk. Discussed strategies to use in case of service disruption or emergencies, as well as alternatives to distance visits. Ms. Seth was given a copy of the consent form. IDENTIFYING INFORMATION: Ms. Lizzy Seth is a 44 year old female. She was referred by Surgery. Ms. Seth is seeking gastric sleeve surgery for morbid obesity. Her surgeon is Dr. Mohamud. COLLATERAL PARTIES PRESENT: none. MOTIVATION FOR SURGERY / UNDERSTANDING OF PROCEDURE / EXPECTATIONS: Ms. Seth notes she is motivated for surgery by wanting to improve her health for her children and grandson. The patient has an excellent understanding of the surgery, risks, and benefits. She has partially talked with other people who have undergone the procedure. Specific areas of understanding that should be addressed include n/a. The patient has not attended a weight loss surgery support group. The patient expects to lose 220 lbs. following surgery over 12-18 months. Other expectations include increased mobility, increased activity, and decreased pain. Educated patient regarding expected weight loss after surgical procedure and timeline of weight loss/surgery recovery. CAPACITY TO CONSENT: Ms. Seth evidences the following concerns regarding capacity to consent: none noted. MEDICAL PROBLEMS ACTIVE PROBLEM LIST Abdominal Pain Obesity, Class III, BMI >= 40 (morbid obesity) ([facility]) E66.01 Wound of Left Breast Rheumatoid Arthritis Involving Multiple Sites ([facility]) Seasonal Allergic Rhinitis Psoriatic Arthritis ([facility]) Hsv-2 (Herpes Simplex Virus 2) Infection Anxiety With Depression Essential Hypertension Pcos (Polycystic Ovarian Syndrome) Past surgeries? Yes History of psychological complications post-surgery? No MEDICATIONS Current Outpatient Medications Medication Sig - HYDROcodone-Acetaminophen (NORCO) 10-325 mg per tablet Take 1 tablet by mouth twice daily as needed for up to 30 days. - DULoxetine (CYMBALTA) 30 mg capsule Take 1 capsule by mouth once daily. - glycopyrrolate (ROBINUL) 1 mg tablet Take 1 tablet by mouth daily at bedtime. - nystatin (MYCOSTATIN) cream Apply to affected area twice daily as needed. - naproxen (NAPROSYN) 500 mg tablet TAKE 1 TABLET BY MOUTH TWICE DAILY . APPOINTMENT REQUIRED FOR FUTURE REFILLS - PIRMELLA 1-35 mg-mcg per tablet Take 1 tablet by mouth once daily. - folic acid 1 mg tablet Take 1 mg by mouth once daily. - Biotin 10,000 mcg cap Take by mouth. - Clobetasol Propionate 0.05 % lotn Apply to affected area. - Norethindrone-Eth Estradiol (ORTHO-NOVUM , ,) 1-35 mg-mcg per tablet Take 1 tablet by mouth once daily. - lisinopriL-hydrochlorothiazide (ZESTORETIC) 20-25 mg per tablet Take 1 tablet by mouth once daily. - diphenoxylate-atropine (LOMOTIL) 2.5-0.025 mg per tablet Take 1 tablet by mouth four times daily as needed for up to 30 days. - acyclovir (ZOVIRAX) 200 mg capsule Take 1 capsule by mouth every (more content not included)... [facility] Diagnosis Plantar fasciitis of left foot- Primary Plantar fascial fibromatosis Pain of left heel Pain in limb Foreign body (FB) in soft tissue Residual foreign body in soft tissue [facility] Diagnosis Left arm pain Pain in limb Swelling of arm Swelling of limb Neck pain Cervicalgia [facility] Diagnosis Left arm pain- Primary Pain in limb Swelling of arm Swelling of limb Pain of left heel Pain in limb Chronic midline low back pain without sciatica Chronic pain syndrome Trochanteric bursitis of right hip Enthesopathy of hip region Neck pain Cervicalgia Breast lesion Unspecified breast disorder Prolonged menstruation Excessive or frequent menstruation Menorrhagia with irregular cycle Excessive or frequent menstruation [facility] Diagnosis Essential hypertension Unspecified essential hypertension [facility] Diagnosis Chronic midline low back pain without sciatica Chronic pain syndrome Trochanteric bursitis of right hip Enthesopathy of hip region [facility]* Diagnosis MAGALY (obstructive sleep apnea)- Primary Obstructive sleep apnea (adult) (pediatric) Morbid obesity (HCC) Morbid obesity [facility]* Diagnosis Preop examination- Primary Preoperative examination, unspecified Abdominal bloating Flatulence, eructation, and gas pain Heartburn Nausea Nausea alone Essential hypertension Unspecified essential hypertension MAGALY (obstructive sleep apnea) Obstructive sleep apnea (adult) (pediatric) Prediabetes Other abnormal glucose Chronic pain syndrome Body mass index (BMI) 70 or greater, adult (HCC) Former smoker Personal history of tobacco use, presenting hazards to health Vapes nicotine containing substance Gastroesophageal reflux disease, unspecified whether esophagitis present [facility]* Diagnosis Gastroesophageal reflux disease, unspecified whether esophagitis present- Primary [facility]* Diagnosis Chronic midline low back pain without sciatica Chronic pain syndrome Trochanteric bursitis of right hip Enthesopathy of hip region [facility]* Diagnosis Breast pain, right- Primary Mastodynia Right-sided chest pain Prediabetes Other abnormal glucose Dysmetabolic syndrome Dysmetabolic Syndrome X Essential hypertension Unspecified essential hypertension Spep-[id number] condition Vitamin D deficiency Unspecified vitamin D deficiency Screening for thyroid disorder Chronic midline low back pain without sciatica Chronic pain syndrome Trochanteric bursitis of right hip Enthesopathy of hip region [facility]* Diagnosis Abnormal mammogram- Primary Abnormal mammogram, unspecified documented in this encounter [facility] note* Diagnosis Vitamin D deficiency- Primary Unspecified vitamin D deficiency [facility]* Diagnosis Menorrhagia with regular cycle- Primary Excessive or frequent menstruation [facility]* Diagnosis Menorrhagia with regular cycle- Primary Excessive or frequent menstruation Class 3 severe obesity with body mass index (BMI) greater than or equal to 70 in adult, unspecified obesity type, unspecified whether serious comorbidity present (HCC) History of breast cancer Personal history of malignant neoplasm of breast documented in this encounter [facility] note* Diagnosis Abdominal bloating Flatulence, eructation, and gas pain Nausea Nausea alone Bloating Flatulence, eructation, and gas pain Heartburn documented [facility]* Diagnosis Episode of heavy vaginal bleeding- Primary Class 3 severe obesity with body mass index (BMI) greater than or equal to 70 in adult, unspecified obesity type, unspecified whether serious comorbidity present (HCC) documented [facility]* Diagnosis Menorrhagia with regular cycle- Primary Excessive or frequent menstruation Encounter for IUD insertion Encounter for insertion of intrauterine contraceptive device [facility]* Diagnosis COVID-19- Primary documented [facility]* Diagnosis Vitamin D deficiency Unspecified vitamin D deficiency [facility]* Diagnosis Chronic midline low back pain without sciatica Chronic pain syndrome Trochanteric bursitis of right hip Enthesopathy of hip region documented [facility]* Diagnosis Surveillance of previously prescribed intrauterine contraceptive device- Primary [facility]* Diagnosis Chronic midline low back pain without sciatica Chronic pain syndrome Trochanteric bursitis of right hip Enthesopathy of hip region [facility] Diagnosis Medication management- Primary Encounter for long-term (current) use of other medications Chronic midline low back pain without sciatica Chronic pain syndrome Trochanteric bursitis of right hip Enthesopathy of hip region [facility] Diagnosis Essential hypertension Unspecified essential hypertension [facility]* Diagnosis Chronic midline low back pain without sciatica Chronic pain syndrome Trochanteric bursitis of right hip Enthesopathy of hip region [facility]* Diagnosis Chronic midline low back pain without sciatica Chronic pain syndrome Trochanteric bursitis of right hip Enthesopathy of hip region [facility]* Diagnosis Morbid obesity (HCC)- Primary Morbid obesity [facility]* Diagnosis Chronic midline low back pain without sciatica Chronic pain syndrome Trochanteric bursitis of right hip Enthesopathy of hip region [facility]* Diagnosis Well adult exam- Primary Routine general medical examination at a health care facility Chronic midline low back pain without sciatica Chronic pain syndrome Trochanteric bursitis of right hip Enthesopathy of hip region MAGALY (obstructive sleep apnea) Obstructive sleep apnea (adult) (pediatric) Prediabetes Other abnormal glucose PCOS (polycystic ovarian syndrome) Polycystic ovaries Vitamin D deficiency Unspecified vitamin D deficiency Screening for thyroid disorder Encounter for immunization Need for other specified prophylactic vaccination against single bacterial disease documented [facility]* Diagnosis Chronic midline low back pain without sciatica Chronic pain syndrome Trochanteric bursitis of right hip Enthesopathy of hip region [facility]* Diagnosis Encounter for screening mammogram for breast cancer [facility]* Diagnosis Abnormal mammogram Abnormal mammogram, unspecified [facility]* Diagnosis Encounter for screening mammogram for breast cancer documented in this encounter [facility] for referral (narrative)* Diagnostic Procedure Only (Routine) - Pending Review Specialty Diagnoses / Procedures Referred By Enedina knight Referred To Contact [facility] Diagnoses Encounter for screening mammogram for breast cancer Procedures MIKEY SCREENING SCREENING MAMMOGRAPHY BI 2-VIEW BREAST INC CAD Darlyn Warren MD [address] [place] [address] [facility] [address] [place] [address] Referral ID Status Reason Start Date Expiration Date Visits Requested Visits Authorized [id number] Pending Review Auto-Generat ed Referral 11/05/2021 12/05/2022 1 1 [facility] for referral (narrative)* Diagnostic Procedure Only (Routine) - Closed Specialty Diagnoses / Procedures Referred By Contac t Referred To Contact XR IMAGING Diagnoses Pain of left heel Plantar fasciitis of left foot Procedures XR FOOT GENERAL 3V AP/LAT/OBL LEFT RADEX FOOT COMPLETE MINIMUM 3 VIEWS Bernardo Gonzalez [address] [place] [address] Xr Imaging Referral ID Status Reason Start Date Expiration Date V isits Requested Visits Authorized [id number] Closed Auto-Generate d Referral 11/05/2021 12/05/2022 1 1 [facility] [facility] Diagnostic Procedure Only (Routine) - Closed Specialty Diagnoses / Procedures Referred By Contac t Referred To Contact XR IMAGING Diagnoses Left arm pain Swelling of arm Neck pain Procedures XR CERV OTHER 4V AP/LAT/OBL RADEX SPINE CERVICAL 4 OR 5 VIEWS Kodi Diamond APRN.MILLWORK ESTIMATOR [address] [place] [address] Xr Imaging Referral ID Status Reason Start Date Expiration Date V isits Requested Visits Authorized [id number] Closed Auto-Generate d Referral 11/05/2021 12/05/2022 1 1 [facility] for referral (narrative)* Diagnostic Procedure Only (Routine) - Closed Specialty Diagnoses / Procedures Referred By Contac t Referred To Contact XR IMAGING Diagnoses Left arm pain Swelling of arm Neck pain Procedures XR CERV OTHER 4V AP/LAT/OBL RADEX SPINE CERVICAL 4 OR 5 VIEWS Kodi Diamond APRN.MILLWORK ESTIMATOR [address] [place] [address] Xr Imaging Referral ID Status Reason Start Date Expiration Date V isits Requested Visits Authorized [id number] Closed Auto-Generate d Referral 11/05/2021 12/05/2022 1 1 * Consult, Test, Treat (Routine) - Closed Specialty Diagnoses / Procedures Referred By Contac t Referred To Contact Gynecology Diagnoses Prolonged menstruation Menorrhagia with irregular cycle Procedures CONSULT TO GYNECOLOGY OFFICE/OUTPATIENT [facility] 60-74 MINUTES Kodi Diamond APRN.MILLWORK ESTIMATOR [address] [place] [address] Referral ID Status Reason Start Date Expiration Date V isits Requested Visits Authorized [id number] Closed PCP Requested Referral Auto-Generated Referral 11/04/2021 11/04/2022 1 1 * Consult, Test, Treat (Routine) - Closed Specialty Diagnoses / Procedures Referred By Contac t Referred To Contact Podiatry Diagnoses Pain of left heel Procedures CONSULT TO PODIATRY OFFICE/OUTPATIENT [facility] 60-74 MINUTES Kodi Diamond APRN.MILLWORK ESTIMATOR [address] [place] [address] Referral ID Status Reason Start Date Expiration Date V isits Requested Visits Authorized [id number] Closed PCP Requested Referral 11/04/2021 11/04/2022 1 1 * Outpatient Procedure (Urgent) - Closed Specialty Diagnoses / Procedures Referred By Contac t Referred [facility] Diagnoses Left arm pain Swelling of arm Procedures US ARM VEIN DVT UNL VAS LAB DUP-SCAN XTR VEINS UNILATERAL/LIMITED STUDY Kodi Diamond APRN.MILLWORK ESTIMATOR [address] [place] [address] [facility] [address] [place] [address] Referral ID Status Reason Start Date Expiration Date V isits Requested Visits Authorized [id number] Closed Auto-Generate d Referral 11/04/2021 11/04/2022 1 1 * Diagnostic Procedure Only (Urgent) - Pending Review Specialty Diagnoses / Procedures Referred By Contac t Referred To Contact US IMAGING Diagnoses Left arm pain Swelling of arm Procedures US DVT UPPER LT DUP-SCAN XTR VEINS UNILATERAL/LIMITED STUDY Kodi Diamond APRN.CNP [address] [place] [address] Us Imaging Referral ID Status Reason Start Date Expiration Date Visits Requested Visits Authorized [id number] Pending Review Auto-Generat ed Referral 11/04/2021 12/04/2022 1 1 [facility] for referral (narrative)* Diagnostic Procedure Only (Routine) - Pending Review Specialty Diagnoses / Procedures Referred By Enedina t Referred To Contact BR IMAGING Diagnoses Abnormal mammogram Procedures US BREAST LTD RT US BREAST UNI REAL TIME WITH IMAGE LIMITED Darlyn Warren MD [address] [place] [address] [facility] [address] [place] [address] Referral ID Status Reason Start Date Expiration Date Visits Requested Visits Authorized [id number] Pending Review Auto-Generat ed Referral 2 06/19/2023 1 1 [facility] for referral (narrative)* Outpatient Procedure (Routine) - Authorized Specialty Diagnoses / Procedures Referred By Ashleeac t Referred To Contact [facility] Diagnoses Menorrhagia with regular cycle Class 3 severe obesity with body mass index (BMI) greater than or equal to 70 in adult, unspecified obesity type, unspecified whether serious comorbidity present (HCC) Procedures ENDOMETRIAL BIOPSY ENDOMETRIAL BX W/WO ENDOCERVIX BX W/O DILAT SPX Darlyn Warren MD [address] [place] [address] [address] Referral ID Status Reason Start Date Expiration Date Visits Requested Visits Authorized [id number] Authorized Auto-Generat ed Referral 2 06/24/2023 1 1 [facility] for referral (narrative)* Outpatient Procedure (Routine) - Pending Review Specialty Diagnoses / Procedures Referred By Enedina knight Referred To Contact [facility] Diagnoses Menorrhagia with regular cycle Procedures ENDOMETRIAL BIOPSY ENDOMETRIAL BX W/WO ENDOCERVIX BX W/O DILAT SPX Darlyn Warren MD [address] [place] [address] [address] Referral ID Status Reason Start Date Expiration Date Visits Requested Visits Authorized [id number] Pending Review Auto-Generat ed Referral 2 07/07/2023 1 1 * Outpatient Procedure (Routine) - Pending Review Specialty Diagnoses / Procedures Referred By Enedina knight Referred To Contact [facility] Diagnoses Encounter for IUD insertion Menorrhagia with regular cycle Procedures INSERT INTRAUTERINE DEVICE LEVONORGESTREL IU 52MG 5 YR INSERT INTRAUTERINE DEVICE Darlyn Warren MD [address] [place] [address] [address] Referral ID Status Reason Start Date Expiration Date Visits Requested Visits Authorized [id number] Pending Review Auto-Generat ed Referral 2 07/07/2023 1 1 [facility] for referral (narrative)* Diagnostic Procedure Only (Routine) - Closed Specialty Diagnoses / Procedures Referred By Enedina knight Referred To Contact BR IMAGING Diagnoses Encounter for screening mammogram for breast cancer Procedures [facility] SCREENING SCREENING MAMMOGRAPHY BI 2-VIEW BREAST INC CAD Darlyn Warren MD [address] [place] [address] [facility] [address] [place] [address] Referral ID Status Reason Start Date Expiration Date V isits Requested Visits Authorized [id number] Closed Auto-Generate d Referral 05/11/2022 07/10/2022 1 1 [facility] for referral (narrative)* Diagnostic Procedure Only (Routine) - Closed Specialty Diagnoses / Procedures Referred By Enedina knight Referred To Contact BR IMAGING Diagnoses Abnormal mammogram Procedures US BREAST LTD RT US BREAST UNI REAL TIME WITH IMAGE LIMITED Darlyn Warren MD [address] [place] [address] [facility] [address] [place] [address] Referral ID Status Reason Start Date Expiration Date V isits Requested Visits Authorized [id number] Closed Auto-Generate d Referral 05/20/2022 06/19/2023 1 1 [facility] for referral (narrative)* Diagnostic Procedure Only (Routine) - Pending Review Specialty Diagnoses / Procedures Referred By Enedina knight Referred To Contact BR IMAGING Diagnoses Encounter for screening mammogram for breast cancer Procedures [facility] SCREENING SCREENING MAMMOGRAPHY BI 2-VIEW BREAST INC Kodi Rutledge APRN.CNP [address] [place] [address] [facility] [address] [place] [address] Referral ID Status Reason Start Date Expiration Date Visits Requested Visits Authorized [id number] Pending Review Auto-Generat ed Referral 3 07/28/2024 1 1 [facility] for visit Narrative* Diagnostic Procedure Only (Routine) - Closed Specialty Diagnoses / Procedures Referred By Enedina knight Referred To Contact XR IMAGING Diagnoses Left arm pain Swelling of arm Neck pain Procedures XR NECK SOFT TISSUE 2V AP/LAT RADIOLOGIC EXAMINATION NECK SOFT TISSUE Kodi Diamond, NIGHT STOCKER.MILLWORK ESTIMATOR [address] [place] [address] Xr Imaging Referral ID Status Reason Start Date Expiration Date V isits Requested Visits Authorized [id number] Closed Auto-Generate d Referral 11/04/2021 12/04/2022 1 1 [facility] for visit Narrative* Outpatient Procedure (Routine) - Closed Specialty Diagnoses / Procedures Referred By Enedina knight Referred To Contact [facility] Diagnoses Abdominal bloating Nausea Bloating Heartburn Procedures EGD DIAGNOSTIC ESOPHAGOGASTRODUODENOSC OPY TRANSORAL DIAGNOSTIC Ty Potts, NIGHT STOCKER.MILLWORK ESTIMATOR [address] [place] [address] [facility] [address] [place] [address] Referral ID Status Reason Start Date Expiration Date V isits Requested Visits Authorized [id number] Closed Auto-Generate d Referral 08/18/2021 08/18/2022 1 1 [facility] for visit Narrative* Diagnostic Procedure Only (Routine) - Closed Specialty Diagnoses / Procedures Referred By Enedina knight Referred To Contact BR IMAGING Diagnoses Encounter for screening mammogram for breast cancer Procedures MIKEY SCREENING SCREENING MAMMOGRAPHY BI 2-VIEW BREAST INC [facility] Darlyn Warren MD [address] [place] [address] [facility] [address] [place] [address] Referral ID Status Reason Start Date Expiration Date V isits Requested Visits Authorized [id number] Closed Auto-Generate d Referral 05/11/2022 07/10/2022 1 1 [facility] Summary Purpose Family History No Family History Records FoundNo Family History Records FoundNo Family History Records FoundNo Family History Records Found Advance Directives No Advanced Directives Records FoundDocuments on File Type Date Recorded Patient Shoe Turner Expl anation Advance Directive(s) 07/21/2020 11:58 AM Advance Directive(s) 05/20/2020 12:35 PM Advance Directive(s) 11/11/2016 2:41 PM Documents on File Type Date Recorded Patient Shoe Turner Expl anation Advance Directive(s) 07/21/2020 11:58 AM Advance Directive(s) 05/20/2020 12:35 PM Advance Directive(s) 11/11/2016 2:41 PM Medications Administered Section Inactive Administered Medications - up to 3 most recent administrations Medication Order MAR Action Action Date Dose Rate Site famotidine 20 mg injection (PEPCID) 20 mg, INTRAVENOUS, ONCE, 1 dose, On Tue03/03/22 at 0830, REFRIGERATE, Preprocedure Given 03/03/2022 8:32 AM EDT 20 mg lactated ringers iv infusion 30 mL/hr, INTRAVENOUS, CONTINUOUS, Starting on Tue03/03/22 at 0800, Until Tue03/03/22 at 0935, Preprocedure New Bag/Syringe/Bottle 03/03/2022 8:32 AM EDT 30 mL/hr 30 mL/hr metoclopramide HCl 10 mg injection (REGLAN) 10 mg, INTRAVENOUS, ONCE, 1 dose, On Tue03/03/22 at 0830, Preprocedure Given 03/03/2022 8:33 AM EDT 10 mg Inactive Administered Medications - up to 3 most recent administrations Medication Order MAR Action Action Date Dose Rate Site levonorgestrel 20 mcg/24 hours (8 yrs) 52 mg 1 Each intrauterine device (MIRENA) 1 Each, INTRAUTERINE, ONCE (UP TO 30 DAYS AMB), 1 dose, On Tue07/07/22 at 1730, Hazardous Potential Reproductive Risk Drug: Use appropriate PPE. Given 07/07/2022 5:29 PM EST 1 Each Other Reason for Referral Specialty Diagnoses / Procedures Referred By Enedina knight Referred To Contact Diagnoses MAGALY (obstructive sleep apnea) Procedures CONSULT TO SLEEP MEDICINE - ADULT OFFICE/OUTPATIENT [facility] 60-74 MINUTES Kodi Diamond, LOPEZ.MILLWORK ESTIMATOR [address] [place] [address] Referral ID Status Reason Start Date Expiration Date Visits Requested Visits Authorized [id number] Authorized PCP Requested Referral 3 05/01/2024 1 1 Additional Source Comments INFORMATION SOURCE (unrecogn ized section and content) DATE CREATED AUTHOR AUTHOR'S ORGANIZ ATION 05/06/2021 [facility] DATE CREATED AUTHOR AUTHOR'S ORGANIZ ATION 04/10/2022 [facility] DATE CREATED AUTHOR AUTHOR'S ORGANIZ ATION 07/17/2023 [facility] Source Comments (unrecognize d section and content) In the event this informatio n is protected by the Federal Confidentiality of Alcohol and Drug Abuse Patient Records regulations: The Federal rules restrict any use of the information to criminally investigate or prosecute any alcohol or drug abuse patient.[facility] the event this information is protected by the Federal Confidentiality of Alcohol and Drug Abuse Patient Records regulations: The Federal rules restrict any use of the information to criminally investigate or prosecute any alcohol or drug abuse patient.[facility] HospitalIn the event this information is protected by the Federal Confidentiality of Alcohol and Drug Abuse Patient Records regulations: The Federal rules restrict any use of the information to criminally investigate or prosecute any alcohol or drug abuse patient.[facility] HospitalIn the event this information is protected by the Federal Confidentiality of Alcohol and Drug Abuse Patient Records regulations: The Federal rules restrict any use of the information to criminally investigate or prosecute any alcohol or drug abuse patient.[facility] HospitalIn the event this information is protected by the Federal Confidentiality of Alcohol and Drug Abuse Patient Records regulations: The Federal rules restrict any use of the information to criminally investigate or prosecute any alcohol or drug abuse patient.[facility] HospitalIn the event this information is protected by the Federal Confidentiality of Alcohol and Drug Abuse Patient Records regulations: The Federal rules restrict any use of the information to criminally investigate or prosecute any alcohol or drug abuse patient.[facility] HospitalIn the event this information is protected by the Federal Confidentiality of Alcohol and Drug Abuse Patient Records regulations: The Federal rules restrict any use of the information to criminally investigate or prosecute any alcohol or drug abuse patient.[facility] HospitalIn the event this information is protected by the Federal Confidentiality of Alcohol and Drug Abuse Patient Records regulations: The Federal rules restrict any use of the information to criminally investigate or prosecute any alcohol or drug abuse patient.[facility] HospitalIn the event this information is protected by the Federal Confidentiality of Alcohol and Drug Abuse Patient Records regulations: The Federal rules restrict any use of the information to criminally investigate or prosecute any alcohol or drug abuse patient.[facility] HospitalIn the event this information is protected by the Federal Confidentiality of Alcohol and Drug Abuse Patient Records regulations: The Federal rules restrict any use of the information to criminally investigate or prosecute any alcohol or drug abuse patient.[facility] HospitalIn the event this information is protected by the Federal Confidentiality of Alcohol and Drug Abuse Patient Records regulations: The Federal rules restrict any use of the information to criminally investigate or prosecute any alcohol or drug abuse patient.[facility] HospitalIn the event this information is protected by the Federal Confidentiality of Alcohol and Drug Abuse Patient Records regulations: The Federal rules restrict any use of the information to criminally investigate or prosecute any alcohol or drug abuse patient.[facility] HospitalIn the event this information is protected by the Federal Confidentiality of Alcohol and Drug Abuse Patient Records regulations: The Federal rules restrict any use of the information to criminally investigate or prosecute any alcohol or drug abuse patient.[facility] HospitalIn the event this information is protected by the Federal Confidentiality of Alcohol and Drug Abuse Patient Records regulations: The Federal rules restrict any use of the information to criminally investigate or prosecute any alcohol or drug abuse patient.[facility] HospitalIn the event this information is protected by the Federal Confidentiality of Alcohol and Drug Abuse Patient Records regulations: The Federal rules restrict any use of the information to criminally investigate or prosecute any alcohol or drug abuse patient.[facility] HospitalIn the event this information is protected by the Federal Confidentiality of Alcohol and Drug Abuse Patient Records regulations: The Federal rules restrict any use of the information to criminally investigate or prosecute any alcohol or drug abuse patient.[facility] HospitalIn the event this information is protected by the Federal Confidentiality of Alcohol and Drug Abuse Patient Records regulations: The Federal rules restrict any use of the information to criminally investigate or prosecute any alcohol or drug abuse patient.[facility] HospitalIn the event this information is protected by the Federal Confidentiality of Alcohol and Drug Abuse Patient Records regulations: The Federal rules restrict any use of the information to criminally investigate or prosecute any alcohol or drug abuse patient.[facility] HospitalIn the event this information is protected by the Federal Confidentiality of Alcohol and Drug Abuse Patient Records regulations: The Federal rules restrict any use of the information to criminally investigate or prosecute any alcohol or drug abuse patient.[facility] HospitalIn the event this information is protected by the Federal Confidentiality of Alcohol and Drug Abuse Patient Records regulations: The Federal rules restrict any use of the information to criminally investigate or prosecute any alcohol or drug abuse patient.[facility] HospitalIn the event this information is protected by the Federal Confidentiality of Alcohol and Drug Abuse Patient Records regulations: The Federal rules restrict any use of the information to criminally investigate or prosecute any alcohol or drug abuse patient.[facility] HospitalIn the event this information is protected by the Federal Confidentiality of Alcohol and Drug Abuse Patient Records regulations: The Federal rules restrict any use of the information to criminally investigate or prosecute any alcohol or drug abuse patient.[facility] HospitalIn the event this information is protected by the Federal Confidentiality of Alcohol and Drug Abuse Patient Records regulations: The Federal rules restrict any use of the information to criminally investigate or prosecute any alcohol or drug abuse patient.[facility] HospitalIn the event this information is protected by the Federal Confidentiality of Alcohol and Drug Abuse Patient Records regulations: The Federal rules restrict any use of the information to criminally investigate or prosecute any alcohol or drug abuse patient.[facility] HospitalIn the event this information is protected by the Federal Confidentiality of Alcohol and Drug Abuse Patient Records regulations: The Federal rules restrict any use of the information to criminally investigate or prosecute any alcohol or drug abuse patient.[facility] HospitalIn the event this information is protected by the Federal Confidentiality of Alcohol and Drug Abuse Patient Records regulations: The Federal rules restrict any use of the information to criminally investigate or prosecute any alcohol or drug abuse patient.[facility] HospitalIn the event this information is protected by the Federal Confidentiality of Alcohol and Drug Abuse Patient Records regulations: The Federal rules restrict any use of the information to criminally investigate or prosecute any alcohol or drug abuse patient.[facility] HospitalIn the event this information is protected by the Federal Confidentiality of Alcohol and Drug Abuse Patient Records regulations: The Federal rules restrict any use of the information to criminally investigate or prosecute any alcohol or drug abuse patient.[facility] HospitalIn the event this information is protected by the Federal Confidentiality of Alcohol and Drug Abuse Patient Records regulations: The Federal rules restrict any use of the information to criminally investigate or prosecute any alcohol or drug abuse patient.[facility] HospitalIn the event this information is protected by the Federal Confidentiality of Alcohol and Drug Abuse Patient Records regulations: The Federal rules restrict any use of the information to criminally investigate or prosecute any alcohol or drug abuse patient.[facility] HospitalIn the event this information is protected by the Federal Confidentiality of Alcohol and Drug Abuse Patient Records regulations: The Federal rules restrict any use of the information to criminally investigate or prosecute any alcohol or drug abuse patient.[facility] HospitalIn the event this information is protected by the Federal Confidentiality of Alcohol and Drug Abuse Patient Records regulations: The Federal rules restrict any use of the information to criminally investigate or prosecute any alcohol or drug abuse patient.[facility] HospitalIn the event this information is protected by the Federal Confidentiality of Alcohol and Drug Abuse Patient Records regulations: The Federal rules restrict any use of the information to criminally investigate or prosecute any alcohol or drug abuse patient.[facility] HospitalIn the event this information is protected by the Federal Confidentiality of Alcohol and Drug Abuse Patient Records regulations: The Federal rules restrict any use of the information to criminally investigate or prosecute any alcohol or drug abuse patient.[facility] HospitalIn the event this information is protected by the Federal Confidentiality of Alcohol and Drug Abuse Patient Records regulations: The Federal rules restrict any use of the information to criminally investigate or prosecute any alcohol or drug abuse patient.[facility] HospitalIn the event this information is protected by the Federal Confidentiality of Alcohol and Drug Abuse Patient Records regulations: The Federal rules restrict any use of the information to criminally investigate or prosecute any alcohol or drug abuse patient.[facility] HospitalIn the event this information is protected by the Federal Confidentiality of Alcohol and Drug Abuse Patient Records regulations: The Federal rules restrict any use of the information to criminally investigate or prosecute any alcohol or drug abuse patient.[facility] HospitalIn the event this information is protected by the Federal Confidentiality of Alcohol and Drug Abuse Patient Records regulations: The Federal rules restrict any use of the information to criminally investigate or prosecute any alcohol or drug abuse patient.[facility] HospitalIn the event this information is protected by the Federal Confidentiality of Alcohol and Drug Abuse Patient Records regulations: The Federal rules restrict any use of the information to criminally investigate or prosecute any alcohol or drug abuse patient.[facility] HospitalIn the event this information is protected by the Federal Confidentiality of Alcohol and Drug Abuse Patient Records regulations: The Federal rules restrict any use of the information to criminally investigate or prosecute any alcohol or drug abuse patient.[facility] HospitalIn the event this information is protected by the Federal Confidentiality of Alcohol and Drug Abuse Patient Records regulations: The Federal rules restrict any use of the information to criminally investigate or prosecute any alcohol or drug abuse patient.[facility] HospitalIn the event this information is protected by the Federal Confidentiality of Alcohol and Drug Abuse Patient Records regulations: The Federal rules restrict any use of the information to criminally investigate or prosecute any alcohol or drug abuse patient.[facility] HospitalIn the event this information is protected by the Federal Confidentiality of Alcohol and Drug Abuse Patient Records regulations: The Federal rules restrict any use of the information to criminally investigate or prosecute any alcohol or drug abuse patient.[facility] HospitalIn the event this information is protected by the Federal Confidentiality of Alcohol and Drug Abuse Patient Records regulations: The Federal rules restrict any use of the information to criminally investigate or prosecute any alcohol or drug abuse patient.[facility] HospitalIn the event this information is protected by the Federal Confidentiality of Alcohol and Drug Abuse Patient Records regulations: The Federal rules restrict any use of the information to criminally investigate or prosecute any alcohol or drug abuse patient.[facility] HospitalIn the event this information is protected by the Federal Confidentiality of Alcohol and Drug Abuse Patient Records regulations: The Federal rules restrict any use of the information to criminally investigate or prosecute any alcohol or drug abuse patient.[facility] HospitalIn the event this information is protected by the Federal Confidentiality of Alcohol and Drug Abuse Patient Records regulations: The Federal rules restrict any use of the information to criminally investigate or prosecute any alcohol or drug abuse patient.[facility] HospitalIn the event this information is protected by the Federal Confidentiality of Alcohol and Drug Abuse Patient Records regulations: The Federal rules restrict any use of the information to criminally investigate or prosecute any alcohol or drug abuse patient.[facility] HospitalIn the event this information is protected by the Federal Confidentiality of Alcohol and Drug Abuse Patient Records regulations: The Federal rules restrict any use of the information to criminally investigate or prosecute any alcohol or drug abuse patient.[facility] HospitalIn the event this information is protected by the Federal Confidentiality of Alcohol and Drug Abuse Patient Records regulations: The Federal rules restrict any use of the information to criminally investigate or prosecute any alcohol or drug abuse patient.[facility] HospitalIn the event this information is protected by the Federal Confidentiality of Alcohol and Drug Abuse Patient Records regulations: The Federal rules restrict any use of the information to criminally investigate or prosecute any alcohol or drug abuse patient.[facility] HospitalIn the event this information is protected by the Federal Confidentiality of Alcohol and Drug Abuse Patient Records regulations: The Federal rules restrict any use of the information to criminally investigate or prosecute any alcohol or drug abuse patient.[facility] HospitalIn the event this information is protected by the Federal Confidentiality of Alcohol and Drug Abuse Patient Records regulations: The Federal rules restrict any use of the information to criminally investigate or prosecute any alcohol or drug abuse patient.[facility] HospitalIn the event this information is protected by the Federal Confidentiality of Alcohol and Drug Abuse Patient Records regulations: The Federal rules restrict any use of the information to criminally investigate or prosecute any alcohol or drug abuse patient.[facility] HospitalIn the event this information is protected by the Federal Confidentiality of Alcohol and Drug Abuse Patient Records regulations: The Federal rules restrict any use of the information to criminally investigate or prosecute any alcohol or drug abuse patient.[facility] HospitalIn the event this information is protected by the Federal Confidentiality of Alcohol and Drug Abuse Patient Records regulations: The Federal rules restrict any use of the information to criminally investigate or prosecute any alcohol or drug abuse patient.[facility] HospitalIn the event this information is protected by the Federal Confidentiality of Alcohol and Drug Abuse Patient Records regulations: The Federal rules restrict any use of the information to criminally investigate or prosecute any alcohol or drug abuse patient.[facility] HospitalIn the event this information is protected by the Federal Confidentiality of Alcohol and Drug Abuse Patient Records regulations: The Federal rules restrict any use of the information to criminally investigate or prosecute any alcohol or drug abuse patient.[facility] HospitalIn the event this information is protected by the Federal Confidentiality of Alcohol and Drug Abuse Patient Records regulations: The Federal rules restrict any use of the information to criminally investigate or prosecute any alcohol or drug abuse patient.[facility] HospitalIn the event this information is protected by the Federal Confidentiality of Alcohol and Drug Abuse Patient Records regulations: The Federal rules restrict any use of the information to criminally investigate or prosecute any alcohol or drug abuse patient.[facility] HospitalIn the event this information is protected by the Federal Confidentiality of Alcohol and Drug Abuse Patient Records regulations: The Federal rules restrict any use of the information to criminally investigate or prosecute any alcohol or drug abuse patient.[facility] Reason for Visit (unrecogniz ed section and content) Specialty Diagnoses / Procedures Referred By Contac t Referred To Contact Gynecology Diagnoses Prolonged menstruation Menorrhagia with irregular cycle Procedures CONSULT TO GYNECOLOGY OFFICE/OUTPATIENT [facility] 60-74 MINUTES Kodi Diamond, NIGHT STOCKER.MILLWORK ESTIMATOR [address] [place] [address] Referral ID Status Reason Start Date Expiration Date V isits Requested Visits Authorized [id number] Closed PCP Requested Referral Auto-Generated Referral 11/04/2021 11/04/2022 1 1 Reason Comments intense itching in 1 port on left heel i ntense intching in 1 spot on left heel New Pain Nail Check Specialty Diagnoses / Procedures Referred By Contac t Referred To Contact Podiatry Diagnoses Pain of left heel Procedures CONSULT TO PODIATRY OFFICE/OUTPATIENT [facility] 60-74 MINUTES Kodi Diamond, NIGHT STOCKER.MILLWORK ESTIMATOR [address] [place] [address] Referral ID Status Reason Start Date Expiration Date V isits Requested Visits Authorized [id number] Closed PCP Requested Referral 11/04/2021 11/04/2022 1 1 Reason Comments Breast Problem infection left breas t, itching under arm Itching left heel area Menstrual Problem 2 weeks long beginni ng of October, heavy bleeding, changed 10x a daily Hair Loss Arm Pain mostly lower arm x 2 months ago Reason Onset Date Comments Refill Request 11/06/2021 Reason Onset Date Comments Refill Request 11/12/2021 Reason Onset Date Comments Refill Request 01/12/2022 Reason Onset Date Comments Refill Request 01/11/2022 Reason Comments bipap concerns Reason Comments send records Reason Comments Insurance Authorization Phentermine HCL Reason Onset Date Comments Refill Request 02/15/2022 Reason Comments Pre-Op Visit Reason Comments Request for fax Reason Comments 11-18-2021 EGD Alfredo Perez EGD Reason Comments Patient Question Reason Onset Date Comments Refill Request 04/20/2022 Reason Comments Medication Follow-up Reason Comments schedule appointment Reason Onset Date Comments Refill Request 05/20/2022 Reason Comments Results Reason Comments Mammogram Abnormality Reason Comments Mammogram Result Call Back Reason Comments Menorrhagia Reason Comments Menorrhagia Reason Onset Date Comments Refill Request 06/24/2022 Reason Onset Date Comments Refill Request 06/25/2022 Reason Comments Abdominal Pain Vaginal Bleeding Reason Onset Date Comments Menorrhagia Insertion Of IUD 07/07/2022 Specialty Diagnoses / Procedures Referred By Enedina t Referred To Contact [facility] Diagnoses Menorrhagia with regular cycle Class 3 severe obesity with body mass index (BMI) greater than or equal to 70 in adult, unspecified obesity type, unspecified whether serious comorbidity present (HCC) Procedures ENDOMETRIAL BIOPSY ENDOMETRIAL BX W/WO ENDOCERVIX BX W/O DILAT SPX Darlyn Warren MD [address] [place] [address] [facility] [address] [place] [address] Referral ID Status Reason Start Date Expiration Date V isits Requested Visits Authorized [id number] Closed Auto-Generate d Referral 06/24/2022 06/24/2023 1 1 Reason Comments Vaginal Bleeding Reason Comments Insurance Authorization wegovy Reason Comments Cough Reason Onset Date Comments Refill Request 08/13/2022 Reason Onset Date Comments Refill Request 08/16/2022 Reason Comments iud check Reason Onset Date Comments Refill Request 09/09/2022 Reason Onset Date Comments Refill Request 03/18/2022 Refill Request 10/15/2022 Reason Comments Opened In Error Reason Onset Date Comments Refill Request 12/08/2022 Reason Onset Date Comments Refill Request 01/10/2023 Reason Onset Date Comments Refill Request 02/07/2023 Reason Comments Need ICD 10 code for nitrite glove Rx Reason Onset Date Comments Refill Request 03/07/2023 Reason Comments Medication Follow-up Reason Comments Radiology US Specialty Diagnoses / Procedures Referred By Enedina t Referred To Contact [facility] Diagnoses Abnormal mammogram Procedures US BREAST LTD RT US BREAST UNI REAL TIME WITH IMAGE LIMITED Darlyn Warren MD [address] [place] [address] [facility] [address] [place] [phone] Referral ID Status Reason Start Date Expiration Date V isits Requested Visits Authorized [id number] Closed Auto-Generate d Referral 05/20/2022 06/19/2023 1 1 Reason Onset Date Comments Refill Request 06/27/2023 Care Teams (unrecognized sec tion and content) Well Driller Helper Relationship Specialty Start Date End Date Kodi Diamond, NIGHT STOCKER.MILLWORK ESTIMATOR [address] [facility] [place] [address] PCP - General Family Practice 11/16/19 Duong, Gómez S [address] [place] [address] Cardiology 10/09/20 Well Driller Helper Relationship Specialty Start Date End Date LoboKodi, NIGHT STOCKER.MILLWORK ESTIMATOR [address] [place] [address] PCP - General Family Practice 11/16/19 Duong, [place] S [address] [facility] [place] [address] Cardiology 10/09/20 Well Driller Helper Relationship Specialty Start Date End Date [facility] CountyKodi, NIGHT STOCKER.MILLWORK ESTIMATOR [address] [facility] [place] [address] PCP - General Family Practice 11/16/19 Duong, Gómez S [address] [facility] [place] [address] Cardiology 10/09/20 Well Driller Helper Relationship Specialty Start Date End Date Kodi Diamond, NIGHT STOCKER.MILLWORK ESTIMATOR [address] [facility] [place] [address] PCP - General Family Practice 11/16/19 Duong, Gómez S [address] [facility] [place] [address] Cardiology 10/09/20 Well Driller Helper Relationship Specialty Start Date End Date Kodi Diamond, NIGHT STOCKER.MILLWORK ESTIMATOR [address] [facility] [place] [address] PCP - General Family Practice 11/16/19 Duong, Gómez S [address] [place] [address] Cardiology 10/09/20 Well Driller Helper Relationship Specialty Start Date End Date Kodi Diamond, NIGHT STOCKER.MILLWORK ESTIMATOR [address] [facility] [place] [address] PCP - General Family Practice 11/16/19 Duong, Gómez S [address] [place] [address] Cardiology 10/09/20 Well Driller Helper Relationship Specialty Start Date End Date Kodi Diamond, NIGHT STOCKER.MILLWORK ESTIMATOR [address] [facility] [address] PCP - General Family Practice 11/16/19 Duong, Gómez S [address] [place] [address] Cardiology 10/09/20 Well Driller Helper Relationship Specialty Start Date End Date Kodi Diamond, NIGHT STOCKER.MILLWORK ESTIMATOR [address] [facility] [place] [address] PCP - General Family Practice 11/16/19 Duong, Gómez S [address] [facility] [place] [address] Cardiology 10/09/20 Well Driller Helper Relationship Specialty Start Date End Date Kodi Diamond, NIGHT STOCKER.MILLWORK ESTIMATOR [address] [facility] [place] [address] PCP - General Family Practice 11/16/19 Duong, Gómez S [address] [facility] [place] [address] Cardiology 10/09/20 Well Driller Helper Relationship Specialty Start Date End Date [facility] CountyKodi, NIGHT STOCKER.MILLWORK ESTIMATOR [address] [facility] [place] [address] PCP - General Family Practice 11/16/19 Duong, [place] S [address] [place] [address] Cardiology 10/09/20 Well Driller Helper Relationship Specialty Start Date End Date LoboKodi payton, NIGHT STOCKER.MILLWORK ESTIMATOR [address] [facility] [place] [address] PCP - General Family Practice 11/16/19 Duong, Gómez S [address] [place] [address] Cardiology 10/09/20 Well Driller Helper Relationship Specialty Start Date End Date [facility] CountyK[facility], NIGHT STOCKER.MILLWORK ESTIMATOR [address] [facility] [place] [address] PCP - General Family Practice 11/16/19 Duong, [place] S [address] [place] [address] Cardiology 10/09/20 Well Driller Helper Relationship Specialty Start Date End Date [facility] CountyoKdi, NIGHT STOCKER.MILLWORK ESTIMATOR [address] [facility] [place] [address] PCP - General Family Practice 11/16/19 Duong, [place] S [address] [place] [address] Cardiology 10/09/20 Well Driller Helper Relationship Specialty Start Date End Date [facility] CountyKodi, NIGHT STOCKER.MILLWORK ESTIMATOR [address] [place] [address] PCP - General Family Practice 11/16/19 Duong, Gómez S [address] [place] [address] Cardiology 10/09/20 Well Driller Helper Relationship Specialty Start Date End Date Kodi Diamond, NIGHT STOCKER.MILLWORK ESTIMATOR [address] [facility] [place] [address] PCP - General Family Practice 11/16/19 Duong, Gómez S [address] [place] [address] Cardiology 10/09/20 Well Driller Helper Relationship Specialty Start Date End Date Kodi Diamond, NIGHT STOCKER.MILLWORK ESTIMATOR [address] [facility] [place] [address] PCP - General Family Medicine 11/16/19 Duong, [place] S [address] [place] [address] Cardiology 10/09/20 Well Driller Helper Relationship Specialty Start Date End Date Kodi Diamond, NIGHT STOCKER.MILLWORK ESTIMATOR [address] [facility] [place] [address] PCP - General Family Medicine 11/16/19 Duong, [place] S [address] [place] [address] Cardiology 10/09/20 Well Driller Helper Relationship Specialty Start Date End Date Kodi Diamond, NIGHT STOCKER.MILLWORK ESTIMATOR [address] [facility] [place] [address] PCP - General Family Medicine 11/16/19 Duong, [place] S [address] [place] [address] Cardiology 10/09/20 Well Driller Helper Relationship Specialty Start Date End Date Kodi Diamond, NIGHT STOCKER.MILLWORK ESTIMATOR [address] [facility] [place] [address] PCP - General Family Medicine 11/16/19 Duogn, [place] S [address] [place] [address] Cardiology 10/09/20 Well Driller Helper Relationship Specialty Start Date End Date Kodi Diamond, NIGHT STOCKER.MILLWORK ESTIMATOR [address] [facility] [place] [address] PCP - General Family Medicine 11/16/19 Duong, [place] S [address] [facility] [place] [address] Cardiology 10/09/20 Well Driller Helper Relationship Specialty Start Date End Date Kodi Diamond, NIGHT STOCKER.MILLWORK ESTIMATOR [address] [place] [address] PCP - General Family Medicine 11/16/19 Duong, Gómez S [address] [place] [address] Cardiology 10/09/20 Well Driller Helper Relationship Specialty Start Date End Date Kodi Diamond, NIGHT STOCKER.MILLWORK ESTIMATOR [address] [facility] [address] PCP - General Family Medicine 11/16/19 Duong, [place] S [address] [facility] [place] [address] Cardiology 10/09/20 Well Driller Helper Relationship Specialty Start Date End Date Koid Diamond, NIGHT STOCKER.MILLWORK ESTIMATOR [address] [facility] [place] [address] PCP - General Family Medicine 11/16/19 Duong, [place] S [address] [place] [address] Cardiology 10/09/20 Well Driller Helper Relationship Specialty Start Date End Date Kodi Diamond, NIGHT STOCKER.MILLWORK ESTIMATOR [address] [place] [address] PCP - General Family Medicine 11/16/19 Duong, [place] S [address] [facility] [place] [place] [address] Cardiology 10/09/20 Well Driller Helper Relationship Specialty Start Date End Date Kodi Diamond, NIGHT STOCKER.MILLWORK ESTIMATOR [address] [place] [address] PCP - General Family Medicine 11/16/19 Duong, Gómez S [address] [facility] [place] [address] Cardiology 10/09/20 Well Driller Helper Relationship Specialty Start Date End Date Kodi Diamond, NIGHT STOCKER.MILLWORK ESTIMATOR [address] [facility] [place] [address] PCP - General Family Medicine 11/16/19 Duong, [place] S [address] [facility] [place] [address] Cardiology 10/09/20 Well Driller Helper Relationship Specialty Start Date End Date Kodi Diamond, NIGHT STOCKER.MILLWORK ESTIMATOR [address] [place] [address] PCP - General Family Medicine 11/16/19 Duong, Gómez S [address] [place] [address] Cardiology 10/09/20 Well Driller Helper Relationship Specialty Start Date End Date Kodi Diamond, NIGHT STOCKER.MILLWORK ESTIMATOR [address] [facility] [place] [address] PCP - General Family Medicine 11/16/19 Duong, [place] S [address] [place] [address] Cardiology 10/09/20 Well Driller Helper Relationship Specialty Start Date End Date Kodi Diamond, NIGHT STOCKER.MILLWORK ESTIMATOR [address] [facility] [place] [place] [address] PCP - General Family Medicine 11/16/19 Duong, [place] S [address] [facility] [place] [address] Cardiology 10/09/20 Well Driller Helper Relationship Specialty Start Date End Date Kodi Diamond, NIGHT STOCKER.MILLWORK ESTIMATOR [address] [facility] [place] [address] PCP - General Family Medicine 11/16/19 Duong, Gómez S [address] [place] [address] Cardiology 10/09/20 Well Driller Helper Relationship Specialty Start Date End Date Kodi Diamond, NIGHT STOCKER.MILLWORK ESTIMATOR [address] [place] [address] PCP - General Family Medicine 11/16/19 Duong, Gómez S [address] [place] [address] Cardiology 10/09/20 Well Driller Helper Relationship Specialty Start Date End Date [facility] CountyKodi, NIGHT STOCKER.MILLWORK ESTIMATOR [address] [facility] [place] [address] PCP - General Family Medicine 11/16/19 Duong, [place] S [address] [place] [address] Cardiology 10/09/20 Well Driller Helper Relationship Specialty Start Date End Date [facility] CountyKodi, NIGHT STOCKER.MILLWORK ESTIMATOR [address] [facility] [place] [address] PCP - General Family Medicine 11/16/19 Duong, Gómez S [address] [facility] [place] [address] Cardiology 10/09/20 Well Driller Helper Relationship Specialty Start Date End Date [facility] CountyKodi, NIGHT STOCKER.MILLWORK ESTIMATOR [address] [place] [address] PCP - General Family Medicine 11/16/19 Duong, [place] S [address] [facility] [place] [address] Cardiology 10/09/20 Well Driller Helper Relationship Specialty Start Date End Date [facility] CountyKodi, NIGHT STOCKER.MILLWORK ESTIMATOR [address] [place] [address] PCP - General Family Medicine 11/16/19 Duong, Gómez S [address] [facility] [place] [place] [address] Cardiology 10/09/20 Well Driller Helper Relationship Specialty Start Date End Date [facility] CountyKodi, NIGHT STOCKER.MILLWORK ESTIMATOR [address] [place] [address] PCP - General Family Medicine 11/16/19 Duong, Gómez S [address] [place] [address] Cardiology 10/09/20 Well Driller Helper Relationship Specialty Start Date End Date LoboKodi hernandez, NIGHT STOCKER.MILLWORK ESTIMATOR [address] [place] [address] PCP - General Family Medicine 11/16/19 Duong, [place] S [address] [facility] [address] Cardiology 10/09/20 Well Driller Helper Relationship Specialty Start Date End Date [facility] CountyKodi, NIGHT STOCKER.MILLWORK ESTIMATOR [address] [place] [address] PCP - General Family Medicine 11/16/19 Duong, [place] S [address] [place] [address] Cardiology 10/09/20 Well Driller Helper Relationship Specialty Start Date End Date [facility] CountyKodi, NIGHT STOCKER.MILLWORK ESTIMATOR [address] [place] [address] PCP - General Family Medicine 11/16/19 Duong, [place] S [address] [facility] [place] [address] Cardiology 10/09/20 Well Driller Helper Relationship Specialty Start Date End Date [facility] CountyKodi, NIGHT STOCKER.MILLWORK ESTIMATOR [address] [place] [address] PCP - General Family Medicine 11/16/19 Duong, Gómez S [address] [place] [address] Cardiology 10/09/20 Well Driller Helper Relationship Specialty Start Date End Date [facility] Kodi, NIGHT STOCKER.MILLWORK ESTIMATOR [address] [place] [address] PCP - General Family Medicine 11/16/19 Gómez Watters [address] [place] [address] Cardiology 10/09/20 Well Driller Helper Relationship Specialty Start Date End Date [facility] Kodi, NIGHT STOCKER.MILLWORK ESTIMATOR [address] [place] [address] PCP - General Family Medicine 11/16/19 Gómez Watters MD [address] [place] [address] Cardiology 10/09/20 Well Driller Helper Relationship Specialty Start Date End Date [facility] CountyOsirisKodi, NIGHT STOCKER.MILLWORK ESTIMATOR [address] [place] [address] PCP - General Family Medicine 11/16/19 Gómez Watters MD [address] [place] [address] Cardiology 10/09/20 Well Driller Helper Relationship Specialty Start Date End Date [facility] CountyOsirisKodi, NIGHT STOCKER.MILLWORK ESTIMATOR [address] [place] [address] PCP - General Family Medicine 11/16/19 Gómez Watters MD [address] [facility] [place] [address] Cardiology 10/09/20 Well Driller Helper Relationship Specialty Start Date End Date [facility] CountyK[facility], NIGHT STOCKER.MILLWORK ESTIMATOR [address] [place] [address] PCP - General Family Medicine 11/16/19 Gómez Watters MD [address] [facility] [place] [address] Cardiology 10/09/20 Well Driller Helper Relationship Specialty Start Date End Date [facility] CountyK[facility], NIGHT STOCKER.MILLWORK ESTIMATOR [address] [place] [address] PCP - General Family Medicine 11/16/19 Gómez Watters MD [address] [facility] [place] [address] Cardiology 10/09/20 Well Driller Helper Relationship Specialty Start Date End Date [facility] CountyKodi, NIGHT STOCKER.MILLWORK ESTIMATOR [address] [place] [address] PCP - General Family Medicine 11/16/19 Gómez Watters MD [address] [facility] [place] [address] Cardiology 10/09/20 FOR RECORDS PERTAINING TO PATIENTS WHO ARE OR HAVE BEEN ENROLLED IN A CHEMICAL DEPENDENCY/SUBSTANCEABUSE PROGRAM, SOME INFORMATION MAY BE OMITTED. This clinical summary was aggregated from multiple sources. Caution should be exercised in using it in the provision of clinical care. This summary normalizes information from multiple sources, and as a consequence, information in this document may materially change the coding, format and clinical context of patient data. In addition, data may be omitted in some cases. CLINICAL DECISIONS SHOULD BE BASED ON THE PRIMARY CLINICAL RECORDS. [employer] [facility]. provides no warranty or guarantee of the accuracy or completeness of information in this document.
--- NOTE | 2023-08-13 02:22 | RAD_ITS ---
INDICATION: chest pain EXAMINATION/TECHNIQUE: X-RAY - XR Chest 1 View COMPARISON: No relevant prior comparison study available FINDINGS: LINES/DEVICES: None. LUNGS: Low lung volumes. No consolidation, edema or effusion. Platelike atelectasis, left perihilar region. No pneumothorax. MEDIASTINUM AND CARDIOVASCULAR STRUCTURES: Cardiac silhouette not enlarged. Central airways and mediastinal contour are unremarkable. BONES AND SOFT TISSUES: Unremarkable. RAD/Chest 1 View (Portable) IMPRESSION: No acute pulmonary finding. Electronically Signed: Cl Paige MD at 2:48 EST ,
[2023-08-13 02:24] LABS: Absolute Lymphocyte Count 4.17 X10^3/uL (0.83-4.51); Absolute Neutrophil Count 7.7 X10^3/uL (2.0-7.7); Basophil# 0.07 X10^3/uL; Basophil% 0.5 % (0-1); Eosinophil# 0.27 X10^3/uL; Eosinophils% 2.1 % (0-5); Hematocrit 40.7 % (37-47); Hemoglobin 13.2 g/dL (12.0-15.0); Lymphocyte # 4.17 X10^3/ul (0.83-4.51); Lymphocyte % 31.8 % (19-41); Mean Corp Hgb Conc 32.4 g/dL (32-36); Mean Corpuscular Hgb 30.4 pg (27.0-32.0); Mean Corpuscular Volume 93.8 fL (81-99); Monocyte# 0.79 X10^3/uL; NRBC Flagged by Analyzer 0 % (0-5); Neutrophil % 58.8 % (47-70); POSITIVE MORPHOLOGY YES; Platelet Count 341 K/mm3 (150-450); RBC Distribution Width CV 12.8 % (11.6-14.6); RBC Distribution Width SD 43.7 fl (35.1-43.9); Red Blood Count 4.34 M/mm3 (4.2-5.4); White Blood Count 13.1 K/mm3 (4.4-11.0)
[2023-08-13 02:28] LABS: Differential Indicated SCAN CRITERIA MET
[2023-08-13 02:57] LABS: Anion Gap 6 (5-15); BUN 10 mg/dL (7-18); BUN/Creat Ratio 15.6 RATIO (10-20); Calcium,Total 9.5 mg/dL (8.5-10.1); Chloride 106 mmol/L (98-107); Creatinine, Serum 0.64 mg/dL (0.55-1.02); EST Glomerular Filtration Rate 106 mL/min (>60); Est Glom Filt Rate - Afr Amer 129 mL/min (>60); Estimated Creatinine Clearance 193.71 ml/min; Glucose 141 mg/dL (74-106); Magnesium 1.9 mg/dL (1.6-2.6); Potassium 3.5 mmol/L (3.5-5.1); Sodium Level 138 mmol/L (136-145); Thyroid Stim Hormone (TSH) 6.04 uIU/mL (0.358-3.74); Troponin-I HS (w/2H Reflex) 4 pg/mL (3.0-54.0)
[2023-08-13 03:14] VITALS: BP 117/73; PULSE 83; RESP 20; O2SAT 97
[2023-08-13 03:28] LABS: Differential Comment SCANNED
--- NOTE | 2023-08-13 03:55 | EDS_ITS ---
HPI History of Present Illness Chief Complaint: Palpitations Informant: patient and spouse/S.O. Narrative Narrative: 47-year-old female presenting to the emergency room with chief complaint of palpitations. Patient states that she is currently using BiPAP therapy for sleep apnea. She states she has not used for the past couple nights. She had been waking up with a pressure sensation in her epigastrium causing pain in her chest and over the 5 or so nights she has been waking up with racing and irregular heart rate. She states that it is typically gone away. Tonight it was not really going away she was concerned. She has an appointment on Tuesday with her doctor to see if she can get her CPAP fixed. She states she is needs a overnight sleep study/titration. She does not see a outreach specialist. She does not carry a history of any dysrhythmias. She does note a history of hypertension as well as some lower extremity edema. She reports that she takes 2 water pills review of the chart shows that this is spironolactone and some HCTZ. She has not required any potassium or magnesium supplementation. She denies any active chest pain. She states her symptoms abated on the way here. [facility] Medical History Ankylosing spondylitis Anxiety and depression Awareness under anesthesia Chronic pain syndrome Dysphagia Essential hypertension Gout Herpes Hiatal hernia History of pancreatitis Lumbago of lumbar region with sciatica Malignant neoplasm of left breast Morbid obesity with BMI of 70 and over, adult MAGALY on CPAP Osteoarthritis PCOS (polycystic ovarian syndrome) Psoriasis Psoriatic arthritis Rheumatoid arthritis Right hip pain Home Medications biotin 10,000 mcg capsule mcg PO 09/12/20 [History Last Taken Unknown] clobetasol 0.05 % lotion 1 applic topical DAILY PRN 09/12/20 [History Last Taken Unknown] diphenoxylate-atropine 2.5 mg-0.025 mg tablet (Lomotil) 1 tab PO Q6H PRN diarrhea 09/12/20 [History Last Taken Unknown] hydrocodone 10 mg-acetaminophen 325 mg tablet See Rx Instructions PO BID PRN pain 09/12/20 [History Last Taken Unknown] loratadine 10 mg tablet 10 mg PO DAILY PRN allergic symptoms 09/12/20 [History Last Taken Unknown] nystatin 100,000 unit/gram topical cream 1 applic topical BID PRN REDNESS 09/12/20 [History Last Taken Unknown] spironolactone 50 mg tablet 50 mg PO DAILY 09/12/20 [History Last Taken Unknown] acyclovir 200 mg capsule 200 mg PO Q4H PRN 09/17/20 [History Last Taken Unknown] glycopyrrolate 1 mg tablet 1 mg PO QHS PRN 09/17/20 [History Last Taken Unknown] lisinopril 20 mg-hydrochlorothiazide 25 mg tablet 1 tab PO DAILY 09/17/20 [History Last Taken Unknown] dicyclomine 10 mg capsule 10 mg PO DAILY 08/13/23 [History Last Taken Unknown] Allergy/AdvReac Type Severity Reaction Status Date / Time amlodipine Allergy Unknown unknown Verified 08/13/23 01:49 ethinyl estradiol Allergy Unknown unknowm Verified 08/13/23 01:49 [From Alyacen (28)] norethindrone Allergy Unknown unknowm Verified 08/13/23 01:49 [From Alyacen ()] adhesive Allergy Rash Verified 08/13/23 01:49 Penicillins Allergy Hives Verified 08/13/23 01:49 Family History Mother Breast cancer Thyroid disorder Hypertension Cancer lymphoma Schizophrenia Father Anxiety Diabetes CVA (cerebral vascular accident) Sister Hypertension Abuse, drug or alcohol Grandfather Cancer lung Grandmother Diabetes Grandfather Colon cancer Surgical History H/O LEEP (2003) History of History of cholecystectomy History of esophagogastroduodenoscopy (EGD) (2013) History of lumpectomy of left breast (2017) History of tubal ligation Social History Smoking Status: Former smoker how long ago did patient quit smokin06/20/2020 second hand exposure: Yes alcohol intake: never substance use type: does not use ROS ROS ED Constitutional Constitutional ED: Denies chills, fever(s) or weight loss Eyes Eyes: Denies change in vision or diplopia ENT ENT ED: Denies ear pain, rhinorrhea or sore throat Cardiovascular Cardiovascular: Reports chest pain, palpitations and racing heartbeat; Denies orthopnea Respiratory/Chest Respiratory/Chest: Reports dyspnea; Denies cough or orthopnea Gastrointestinal Gastrointestinal: Denies abdominal pain, diarrhea, nausea or vomiting Genitourinary Genitourinary ED: Denies dysuria, hematuria or urinary frequency Musculoskeletal Musculoskeletal: Denies arthralgias or myalgias Integumentary Denies abscess or rash Neurologic Neurologic: Denies headache(s) or weakness Psychiatric Psychiatric: Denies anxiety, depression, suicidal ideation or suicidal thoughts Endocrine Endocrinology: Denies polydipsia, polyphagia or polyuria Allergic/Immunologic Allergic/Immunologic ED: Denies mouth swelling, tongue swelling or urticaria EXAM Physical Exam Const Vital Signs: 08/13/23 01:48 08/13/23 01:48 08/13/23 03:14 Temperature 97.4 F L Temperature Source Oral Pulse Rate 94 83 Respiratory Rate 22 H 20 H Respiratory Effort Normal Non-Labored Blood Pressure 156/65 H 117/73 Blood Pressure Mean 95 87 Pulse Ox 100 97 Oxygen Delivery Method Room Air Room Air 08/13/23 01:57 08/13/23 03:59 Temperature 97.4 F L Temperature Source Pulse Rate 92 Respiratory Rate 17 Respiratory Effort Blood Pressure 122/76 H Blood Pressure Mean 91 Pulse Ox 94 Oxygen Delivery Method Room Air Positive well nourished, well developed and obese General Appearance ED: well developed Nutritional Appearance: obese HEENT Reports normocephalic, head/scalp atraumatic and moist mucous membranes Eyes PERRL and EOMs intact bilaterally Neck no lymphadenopathy, supple and no JVD Resp normal respiratory effort and clear to auscultation bilaterally Cardio regular rate, regular rhythm and no murmurs GI normal to inspection, nondistended, normoactive bowel sounds and non-tender Palpation: soft Back/Spine no CVA tenderness and normal ROM Extremity normal to inspection General Extremety ED: Negative for edema General Extremity: Negative for edema Neuro oriented x3 and CN's II-XII intact bilaterally Sensorium / Orientation: alert Motor Exam: strength 5/5 throughout Psych mental status grossly normal Mood & Affect: Negative for depressed or tearful Skin no rashes or lesions noted and no wounds MDM MDM MDM Narrative Medical decision making narrative: Patient was placed on the monitor appears in a normal sinus rhythm where she has remained for the duration of her ED course. Basic blood work showed a nonspeci fic elevation of white count at 13.1 hemoglobin 13.2 and a platelet count of 341. Magnesium 1.9 potassium 3.5 sodium is 138 troponin is 4. TSH is elevated at 6.04. She states that she has had her thyroid checked in the past and it has always been normal. She wonders if this could be a reason for why she is gaining weight. My independent or potation of the chest x-ray is no acute process. I suspect the patient could be having paroxysmal dysrhythmia. Certainly sleep apnea and ineffective treatment could be contributing. Patient at this point is remained in normal sinus rhythm. She is going to follow-up with her doctor on Tuesday and already has an appointment. She is going to talk about her TSH as well as sleep study/titration appointment. History & Record Review Discussion w/independent historian: Patient and Significant other Lab Data Attestation: I reviewed the patient's lab results. Labs: Laboratory Results - last 24 hr 08/13/23 02:17 WBC 13.1 H RBC 4.34 Hgb 13.2 Hct 40.7 MCV 93.8 MCH 30.4 MCHC 32.4 RDW Std Deviation 43.7 RDW Coeff of Marj 12.8 Plt Count 341 MPV 9.0 Immature Gran % (Auto) 0.800 Neut % (Auto) 58.8 Lymph % (Auto) 31.8 Randall % (Auto) 6.0 Eos % (Auto) 2.1 Baso % (Auto) 0.5 Absolute Neuts (auto) 7.7 Absolute Lymphs (auto) 4.17 Nucleated RBC % 0 Differential Comment SCANNED Sodium 138 Potassium 3.5 Chloride 106 Carbon Dioxide 26.0 Anion Gap 6 BUN 10 Creatinine 0.64 Estim Creat Clear Calc 193.71 Est GFR (MDRD) Af Amer 129 Est GFR (MDRD) Non-Af 106 BUN/Creatinine Ratio 15.6 Glucose 141 H Calcium 9.5 Magnesium 1.9 Troponin I High Sens 4 TSH 6.04 H Radiography Diagnostic Testing: Clinical Impression(s) from Imaging Studies Chest X-Ray 08/13/23 02:22 IMPRESSION: No acute pulmonary finding. Electronically Signed: Cl Paige MD at 2:48 EST , EKG Initial EKG: Attestation: I personally reviewed and interpreted this EKG as follows: Comments: Normal sinus rhythm ventricular rate of 92 bpm. Discharge Plan Triage Chief Complaint: Palpitations ED Provider: Roney Robertson Dx/Rx/DC Orders Clinical Impression: Heart palpitations, Sleep apnea in adult, Elevated TSH Instructions: ED Palpitations Prescriptions: No Action lisinopril-hydrochlorothiazide 20-25 mg tablet 1 tab PO DAILY hydrocodone-acetaminophen 10-325 mg tablet See Rx Instructions PO BID PRN (Reason: pain) Rx Instructions: Take 1 to 1.5 tablets PO twice a day PRN; diphenoxylate-atropine [Lomotil] 2.5-0.025 mg tablet 1 tab PO Q6H PRN (Reason: diarrhea) spironolactone 50 mg tablet 50 mg PO DAILY nystatin 100,000 unit/gram cream 1 applic TOPICAL BID PRN (Reason: REDNESS) biotin 10,000 mcg capsule PO clobetasol 0.05 % lotion 1 applic TOPICAL DAILY PRN loratadine 10 mg tablet 10 mg PO DAILY PRN (Reason: allergic symptoms) acyclovir 200 mg capsule 200 mg PO Q4H PRN glycopyrrolate 1 mg tablet 1 mg PO QHS PRN dicyclomine 10 mg capsule 10 mg PO DAILY Primary Care Provider: Surekha Alejandro NP Referrals: Surekha Alejandro NP, [facility] [Primary Care Provider] - [facility] appointment Disposition Disposition: Home, Self Care Discharge Date/Time: 08/13/23 04:00
[2023-08-13 03:59] VITALS: BP 122/76; PULSE 92; RESP 17; TEMP 36.3; O2SAT 94
[2023-08-13 04:20] LABS: Reflex Troponin-HS? (from REC) Y
== END 2023-08-13 04:00 | disposition home or self-care (01) ==
PROVIDERS: Emergency Provider Emergency Medicine; PCP Nurse Practitioner Family; Visit Provider Emergency Medicine
DX: R00.2 Palpitations (principal); G47.30 Sleep apnea, unspecified; Z87.891 Personal history of nicotine dependence; I10 Essential (primary) hypertension; Z79.899 Other long term (current) drug therapy; Z90.49 Acquired absence of other specified parts of digestive tract; R94.6 Abnormal results of thyroid function studies
CPT/HCPCS: 71045; 80048; 83735; 84443; 84484; 85025; 93005; 99284; A4216